=== PATIENT | female | born 1935 | race Native Hawaiian/Other Pacific Islander ===

== ENCOUNTER 2018-07-16 12:24 | Inpatient (IN) | payer MEDICARE, MEDICAID ==
[2018-07-16] MEDS ORDERED: (Novolin R) Insulin Human Regular 100 units/ml vial ONE (12:39)
[2018-07-16] MEDS ORDERED: (Novolin R) Insulin Human Regular 100 units/ml vial IVP ONE (12:40)
[2018-07-16] MEDS ORDERED: Calcium Gluconate 4.65 mEq/10 ml Inj ONE (12:46)
[2018-07-16 13:04] LABS: BASO # 0.1 K/uL (0.0-0.2); BASO % 0.4 % (0.0-2.0); EOS % 0.1 % (0.0-4.0); LYMPH # 1.7 K/uL (1.0-4.3); LYMPH % 11.2 % (20.0-40.0); MEAN CELL VOLUME 82.9 fL (81.0-99.0); MEAN CORPUSCULAR HEMOGLOBIN 26.5 pg (27.0-31.0); MEAN CORPUSCULAR HGB CONC 31.9 g/dL (33.0-37.0); MEAN PLATELET VOLUME 9.5 fL (7.2-11.7); MONO # 0.2 K/uL (0.0-0.8); NEUT # 12.8 K/uL (1.8-7.0); NEUT % 87.3 % (50.0-75.0); RBC 3.76 Mil/uL (3.80-5.20); RED CELL DISTRIBUTION WIDTH 13.7 % (11.5-14.5); WHITE BLOOD COUNT 14.7 K/uL (4.8-10.8)
--- NOTE | 2018-07-16 13:16 | RAD ---
Date of service: 07/16/2018 PROCEDURE: CHEST RADIOGRAPH, 1 VIEW HISTORY: Shortness of breath COMPARISON: None available. FINDINGS: LUNGS: There is severe pulmonary venous congestion. There is patchy airspace disease in both lower lobes, worse in the left lower lobe. PLEURA: No pneumothorax. Suspect small left pleural effusion. CARDIOVASCULAR: Mild cardiomegaly with prominent central vasculature. OSSEOUS STRUCTURES: No significant abnormalities. VISUALIZED UPPER ABDOMEN: Normal. OTHER FINDINGS: None. IMPRESSION: Findings are concerning for mild congestive heart failure. Patchy airspace disease in the lower lobes, worse in the left lower lobe could represent superimposed pneumonia. Follow-up is advised.
[2018-07-16 13:21] LABS: SQUAMOUS EPITHIAL < 1 /hpf (0-5); URINE BACTERIA RARE (<OCC); URINE BILIRUBIN NEGATIVE (NEGATIVE); URINE BLOOD 1+ (NEGATIVE); URINE CLARITY Hazy (Clear); URINE COLOR Yellow (YELLOW); URINE GLUCOSE (UA) 3+ mg/dL (Normal); URINE LEUKOCYTE ESTERASE NEG Leu/uL (Negative); URINE PROTEIN 3+ mg/dL (NEGATIVE); URINE UROBILINOGEN NORMAL mg/dL (0.2-1.0)
[2018-07-16 13:25] LABS: PROTHROMBIN TIME 11.3 SECONDS (9.7-12.2)
[2018-07-16] MEDS ORDERED: Piperacill/Tazo 3.375gm in Dex 3.375 GM/50 ML BAG IVPB STA (13:32)
[2018-07-16 13:36] LABS: B-TYPE NATRIURETIC PEPTIDE 6100 pg/mL (0-900)
[2018-07-16] MEDS ORDERED: Nitroglycerin 2% Ointment Foilpak UD TOP STA (13:39)
[2018-07-16] MEDS ORDERED: Vancomycin 1 GM 1 GM/250 ML BAG IV SCH (13:45)
[2018-07-16 13:48] LABS: ALB/GLOB RATIO 1.1 (1.0-2.1); ALBUMIN 3.8 g/dL (3.5-5.0); ALT/SGPT 47 U/L (9-52); AST/SGOT 43 U/L (14-36); BLOOD UREA NITROGEN 23 mg/dL (7-17); CALCIUM 10.5 mg/dl (8.6-10.4); GFR NON-AFRICAN AMERICAN > 60
--- NOTE | 2018-07-16 13:53 | C.PDOC ---
History Of Present Illness 82 y/o female presents to ED c/o shortness of breath and generalized weakness since this morning and chest pain since yesterday. Denies cough, fever, headache, dizziness, or any other associated symptoms at this time. Time Seen by Provider: 07/16/18 12:46 Chief Complaint (Nursing): Chest Pain History Per: Patient History/Exam Limitations: no limitations Past Medical History Reviewed: Historical Data, Nursing Documentation, Vital Signs Vital Signs: Last Vital Signs Temp Pulse 45 L 07/16/18 12:56 Resp 30 H 07/16/18 12:34 BP 126/66 07/16/18 12:34 Pulse Ox 97 07/16/18 12:34 - Medical History PMH: HTN Family History: States: Unknown Family Hx - Social History Hx Alcohol Use: No Hx Substance Use: No - Immunization History Hx Tetanus Toxoid Vaccination: No Hx Influenza Vaccination: No Hx Pneumococcal Vaccination: No Review Of Systems Except As Marked, All Systems Reviewed And Found Negative. Constitutional: Positive for: Weakness. Negative for: Fever, Chills Respiratory: Positive for: Shortness of Breath Physical Exam - Physical Exam Appears: Non-toxic, Other (severe respiratory distress) Skin: Normal Color, Warm, Dry Head: Atraumatic, Normacephalic Eye(s): bilateral: Normal Inspection Oral Mucosa: Moist Neck: Supple Chest: Symmetrical, No Tenderness Cardiovascular: JVD Respiratory: Decreased Breath Sounds (at bases), Rales, Rhonchi, Wheezing (scattered) Gastrointestinal/Abdominal: Soft, No Tenderness, Other (protuberant abdomen) Back: No CVA Tenderness Extremity: Normal ROM, Pedal Edema (1/4) Neurological/Psych: Oriented x3, Normal Speech ED Course And Treatment - Laboratory Results Result Diagrams: 07/22/18 06:30 07/22/18 06:30 ECG: Interpreted By Me, Viewed By Me ECG Rhythm: Sinus Rhythm Interpretation Of ECG: Third degree block Rate From EC (bpm) O2 Sat by Pulse Oximetry: 97 (RA) Pulse Ox Interpretation: Normal - Radiology CXR: Interpreted by Me, Viewed By Me CXR Interpretation: Yes: Other (CHF) Medical Decision Making Medical Decision Making: Pt was started on BIPAP. Calcium gluconate was given. Case discussed with hospitalist and ICU. Pt is accepted ICU. Disposition - Disposition Disposition: HOSPITALIZED Condition: GOOD - Scribe Statement The provider has reviewed the documentation as recorded by the Scribe KP All medical record entries made by the Tiffibe were at my direction and personally dictated by me. I have reviewed the chart and agree that the record accurately reflects my personal performance of the history, physical exam, medical decision making, and the department course for this patient. I have also personally directed, reviewed, and agree with the discharge instructions and disposition.
[2018-07-16] MEDS ORDERED: Calcium Gluconate 4.65 mEq/10 ml Inj IVP ONE (13:54)
--- NOTE | 2018-07-16 13:54 | CP.CCUPN ---
CCU Subjective - Physician Review Subjective (Free Text): Resident Critical Care Consult Note Patient is a 82 year old male with past medical history of HTN, T2DM, PMH: PSH: SHx: Allergies: FHx: PMD: 07/16/18 15:35 Critical Care Time Spent (in minutes): 35 CCU Objective - Vital Signs / Intake & Output Vital Signs (Last 4 hours): Vital Signs Temp Pulse Resp BP Pulse Ox 07/16/18 13:53 97 07/16/18 13:23 98.1 F 38 L 18 160/112 H 100 07/16/18 13:17 39 L 22 181/55 H 100 07/16/18 13:12 39 L 20 181/56 H 100 07/16/18 13:07 39 L 17 186/54 H 100 07/16/18 12:56 45 L 07/16/18 12:44 42 L 21 167/59 H 100 07/16/18 12:40 27 H 07/16/18 12:37 46 L 23 162/66 H 99 07/16/18 12:34 50 L 30 H 126/66 97 07/16/18 12:32 39 L 34 H 153/54 H 94 L Intake and Output (Last 8hrs): Intake & Output 07/15/18 07/16/18 07/16/18 22:59 06:59 14:59 Weight 116 lb - Medications Active Medications: Active Medications Generic Name Dose Route Start Last Admin Trade Name Freq PRN Reason Stop Dose Admin Piperacillin Sod/Tazobactam Sod 3.375 gm in 50 mls @ 100 mls/hr 07/16/18 13:32 Zosyn 3.375 Gm Iv Premix IVPB 07/16/18 14:01 STAT STA Protocol Vancomycin HCl 1 gm in 250 mls @ 166.667 mls/hr 07/16/18 13:45 Vancomycin 1gm In Normal Saline Addvantage IV STAT COOPER Protocol - Patient Studies Lab Studies: Lab Studies 07/16/18 07/16/18 07/16/18 Range/Units 12:59 12:58 12:58 WBC (4.8-10.8) K/uL RBC (3.80-5.20) Mil/uL Hgb (11.0-16.0) g/dL Hct (34.0-47.0) % MCV (81.0-99.0) fL MCH (27.0-31.0) pg MCHC (33.0-37.0) g/dL RDW (11.5-14.5) % Plt Count (130-400) K/uL MPV (7.2-11.7) fL Neut % (Auto) (50.0-75.0) % Lymph % (Auto) (20.0-40.0) % [place] % (Auto) (0.0-10.0) % Eos % (Auto) (0.0-4.0) % Baso % (Auto) (0.0-2.0) % Neut # (Auto) (1.8-7.0) K/uL Lymph # (Auto) (1.0-4.3) K/uL [place] # (Auto) (0.0-0.8) K/uL Eos # (Auto) (0.0-0.7) K/uL Baso # (Auto) (0.0-0.2) K/uL PT 11.3 (9.7-12.2) SECONDS INR 1.0 APTT 28 (21-34) SECONDS Sodium 130 L (132-148) mmol/L Potassium 5.3 H (3.6-5.2) mmol/L Chloride 101 (98-107) mmol/L Carbon Dioxide 12 L (22-30) mmol/L Anion Gap 22 H (10-20) BUN 23 H (7-17) mg/dL Creatinine 0.7 (0.7-1.2) mg/dL Est GFR ( Amer) > 60 Est GFR (Non-Af Amer) > 60 Random Glucose 467 H* (65-105) mg/dL Calcium 10.5 H (8.6-10.4) mg/dl Total Bilirubin 0.5 (0.2-1.3) mg/dL AST 43 H (14-36) U/L ALT 47 (9-52) U/L Alkaline Phosphatase 77 (38-126) U/L Troponin I 0.1080 (0.00-0.120) ng/mL NT-Pro-B Natriuret Pep 6100 H (0-900) pg/mL Total Protein 7.3 (6.3-8.3) g/dL Albumin 3.8 (3.5-5.0) g/dL Globulin 3.5 (2.2-3.9) gm/dL Albumin/Globulin Ratio 1.1 (1.0-2.1) Urine Color Yellow (YELLOW) Urine Clarity Hazy (Clear) Urine pH 5.0 (5.0-8.0) Ur Specific [place] 1.025 (1.003-1.030) Urine Protein 3+ H (NEGATIVE) mg/dL Urine Glucose (UA) 3+ H (Normal) mg/dL Urine Ketones Negative (NEGATIVE) mg/dL Urine Blood 1+ H (NEGATIVE) Urine Nitrate Negative (NEGATIVE) Urine Bilirubin Negative (NEGATIVE) Urine Urobilinogen Normal (0.2-1.0) mg/dL Ur Leukocyte Esterase Neg (Negative) Leroy/uL Urine WBC (Auto) 3 (0-5) /hpf Urine RBC (Auto) 9 H (0-3) /hpf Ur Squamous Epith Cells < 1 (0-5) /hpf Urine Bacteria Rare (<OCC) Hyaline Casts 3-5 H (0-2) /lpf 07/16/18 Range/Units 12:58 WBC 14.7 H (4.8-10.8) K/uL RBC 3.76 L (3.80-5.20) Mil/uL Hgb 10.0 L (11.0-16.0) g/dL Hct 31.2 L (34.0-47.0) % MCV 82.9 (81.0-99.0) fL MCH 26.5 L (27.0-31.0) pg MCHC 31.9 L (33.0-37.0) g/dL RDW 13.7 (11.5-14.5) % Plt Count 235 (130-400) K/uL MPV 9.5 (7.2-11.7) fL Neut % (Auto) 87.3 H (50.0-75.0) % Lymph % (Auto) 11.2 L (20.0-40.0) % [place] % (Auto) 1.0 (0.0-10.0) % Eos % (Auto) 0.1 (0.0-4.0) % Baso % (Auto) 0.4 (0.0-2.0) % Neut # (Auto) 12.8 H (1.8-7.0) K/uL Lymph # (Auto) 1.7 (1.0-4.3) K/uL [place] # (Auto) 0.2 (0.0-0.8) K/uL Eos # (Auto) 0.0 (0.0-0.7) K/uL Baso # (Auto) 0.1 (0.0-0.2) K/uL PT (9.7-12.2) SECONDS INR APTT (21-34) SECONDS Sodium (132-148) mmol/L Potassium (3.6-5.2) mmol/L Chloride (98-107) mmol/L Carbon Dioxide (22-30) mmol/L Anion Gap (10-20) BUN (7-17) mg/dL Creatinine (0.7-1.2) mg/dL Est GFR ( Amer) Est GFR (Non-Af Amer) Random Glucose (65-105) mg/dL Calcium (8.6-10.4) mg/dl Total Bilirubin (0.2-1.3) mg/dL AST (14-36) U/L ALT (9-52) U/L Alkaline Phosphatase (38-126) U/L Troponin I (0.00-0.120) ng/mL NT-Pro-B Natriuret Pep (0-900) pg/mL Total Protein (6.3-8.3) g/dL Albumin (3.5-5.0) g/dL Globulin (2.2-3.9) gm/dL Albumin/Globulin Ratio (1.0-2.1) Urine Color (YELLOW) Urine Clarity (Clear) Urine pH (5.0-8.0) Ur Specific [place] (1.003-1.030) Urine Protein (NEGATIVE) mg/dL Urine Glucose (UA) (Normal) mg/dL Urine Ketones (NEGATIVE) mg/dL Urine Blood (NEGATIVE) Urine Nitrate (NEGATIVE) Urine Bilirubin (NEGATIVE) Urine Urobilinogen (0.2-1.0) mg/dL Ur Leukocyte Esterase (Negative) [place]/uL Urine WBC (Auto) (0-5) /hpf Urine RBC (Auto) (0-3) /hpf Ur Squamous Epith Cells (0-5) /hpf Urine Bacteria (<OCC) Hyaline Casts (0-2) /lpf Laboratory Results - last 24 hr 10/05/18 10/05/18 10/05/18 12:58 12:58 12:58 WBC 14.7 H RBC 3.76 L Hgb 10.0 L Hct 31.2 L MCV 82.9 MCH 26.5 L MCHC 31.9 L RDW 13.7 Plt Count 235 MPV 9.5 Neut % (Auto) 87.3 H Lymph % (Auto) 11.2 L [place] % (Auto) 1.0 Eos % (Auto) 0.1 Baso % (Auto) 0.4 Neut # (Auto) 12.8 H Lymph # (Auto) 1.7 [place] # (Auto) 0.2 Eos # (Auto) 0.0 Baso # (Auto) 0.1 PT 11.3 INR 1.0 APTT 28 Sodium 130 L Potassium 5.3 H Chloride 101 Carbon Dioxide 12 L Anion Gap 22 H BUN 23 H Creatinine 0.7 Est GFR ( Amer) > 60 Est GFR (Non-Af Amer) > 60 Random Glucose 467 H* Calcium 10.5 H Total Bilirubin 0.5 AST 43 H ALT 47 Alkaline Phosphatase 77 Troponin I 0.1080 NT-Pro-B Natriuret Pep 6100 H Total Protein 7.3 Albumin 3.8 Globulin 3.5 Albumin/Globulin Ratio 1.1 Urine Color Urine Clarity Urine pH Ur Specific [place] Urine Protein Urine Glucose (UA) Urine Ketones Urine Blood Urine Nitrate Urine Bilirubin Urine Urobilinogen Ur Leukocyte Esterase Urine WBC (Auto) Urine RBC (Auto) Ur Squamous Epith Cells Urine Bacteria Hyaline Casts 07/16/18 12:59 WBC RBC Hgb Hct MCV MCH MCHC RDW Plt Count MPV Neut % (Auto) Lymph % (Auto) [place] % (Auto) Eos % (Auto) Baso % (Auto) Neut # (Auto) Lymph # (Auto) [place] # (Auto) Eos # (Auto) Baso # (Auto) PT INR APTT Sodium Potassium Chloride Carbon Dioxide Anion Gap BUN Creatinine Est GFR ( Amer) Est GFR (Non-Af Amer) Random Glucose Calcium Total Bilirubin AST ALT Alkaline Phosphatase Troponin I NT-Pro-B Natriuret Pep Total Protein Albumin Globulin Albumin/Globulin Ratio Urine Color Yellow Urine Clarity Hazy Urine pH 5.0 Ur Specific [place] 1.025 Urine Protein 3+ H Urine Glucose (UA) 3+ H Urine Ketones Negative Urine Blood 1+ H Urine Nitrate Negative Urine Bilirubin Negative Urine Urobilinogen Normal Ur Leukocyte Esterase Neg Urine WBC (Auto) 3 Urine RBC (Auto) 9 H Ur Squamous Epith Cells < 1 Urine Bacteria Rare Hyaline Casts 3-5 H EKG/Cardiology Studies: Cardiology / EKG Studies 07/16/18 12:47 ELECTROCARDIOGRAM Stat Comment: Mode Of Transportation: BED Reason For Exam: SOB Assessment/Plan - Assessment and Plan (Free Text) Assessment: Patient is a 82 year old male with past medical history of HTN, T2DM, found to have 3rd degree heart block. Plan: Neuro: - AAO x3 Pulm: - CXR shows - on BIPAP - maintain SPO2 > 92% - Duonebs 3 ml INH RQ6 CV: - In ED was given 1 mg Atropine, 4.65 meq calcium gluconate, 40 mg Lasix, Nitro- Bid, 10 units Novolin - currently hemodynamically stable - maintain MAP > 65 - EKG shows 3rd degree heart block - JOHN Q6H - Followup ECHO, thyroid function tests - Cardiology consulted. Appreciate recs. - EPS consulted. Appreciate recs. GI: - Pepcid 20mg PO daily - NPO diet Renal: - monitor I and O ID: - Vancomycin 2 gm IV given - Zosyn 3.375 gm IV given once - Followup blood cultures, urine cultures Heme/Onc - monitor H/H Endo: - maintain euglycemia - ISS high dose protocol - Accuchecks Q6H PPX: Pepcid 20 mg PO daily, Lovenox 30 mg SC daily Case and plan was reviewed and discussed with Dr. Sukhwinder Murphy PGY-1 - Date & Time Date: 07/16/18 Time: 13:53
[2018-07-16 14:09] LABS: VENOUS BLOOD GAS BASE EXCESS -14.8 mmol/L (0.0-2.0); VENOUS BLOOD GAS PCO2 32 mmHg (40-60); VENOUS BLOOD GAS PO2 28 mm/Hg (30-55); VENOUS BLOOD PH 7.19 (7.32-7.43)
[2018-07-16] MEDS ORDERED: Vancomycin 1 gm/NS 200 ml 1 GM/200 ML BAG IVPB ONE ×2 (15:00→16:00)
--- NOTE | 2018-07-16 15:37 | CP.PCM.CON ---
<Gee Murphy - Last Filed: 07/16/18 17:08> History of Present Illness - History of Present Illness History of Present Illness: Resident Critical Care Consult Note Patient is a 82 year old male with past medical history of HTN, T2DM, HLD, anemia presenting with chief complaint of chest pain that began yesterday morning. She describes the sensation as a burning discomfort that she thought was indigestion, and so she took an over the counter antacid which did help. Throughout the remainder of the day she remained asymptomatic, and then at night she started developing shortness of breath. Per son, she appeared to be in respiratory distress with accessory muscle use, which prompted her arrival to the ED. Currently she is asymptomatic. Denies fevers, chills, headache, dizziness, chest pain, shortness of breath, abdominal pain, diarrhea, constipation, dysuria. PMH: HTN, T2DM, HLD, anemia PSH: None SHx: Denies alcohol, tobacco, illicit drug use. Homemaker. Allergies: NKDA FHx: father (asthma), mother (none) PMD: Dr. Rick Fonseca Review of Systems - Review of Systems All systems: reviewed and no additional remarkable complaints except (as stated in HPI) Past Patient History - Past Social History Smoking Status: Never Smoked Occupation: Homemaker Alcohol: None Drugs: Denies Home Situation {Lives}: With Family - CARDIAC Hx Hypertension: Yes - ENDOCRINE/METABOLIC Hx Diabetes Mellitus Type 2: Yes - GASTROINTESTINAL Hx Gastroesophageal Reflux: Yes - PSYCHIATRIC Hx Substance Use: No Meds Allergies/Adverse Reactions: Allergies Allergy/AdvReac Type Severity Reaction Status Date / Time No Known Allergies Allergy Verified 07/16/18 15:22 - Medications Medications: Current Medications Vancomycin/Sodium Chloride (Vancomycin 1 Gm/Ns 200 Ml) 1 gm in 200 mls @ 133.333 mls/hr IVPB ONCE ONE; Protocol Stop: 07/16/18 16:29 Last Admin: 07/16/18 15:32 Dose: 133.333 mls/hr Insulin Human Regular (Novolin R) 0 unit SC Q4H [facility]; Protocol Last Admin: 07/16/18 15:33 Dose: 6 u Physical Exam - Constitutional Appears: No Acute Distress - Head Exam Head Exam: ATRAUMATIC, NORMOCEPHALIC - Eye Exam Eye Exam: EOMI, Normal appearance, PERRL - ENT Exam ENT Exam: Normal External Ear Exam - Neck Exam Neck exam: Positive for: Full Rom. Negative for: Lymphadenopathy, Tenderness, Thyromegaly - Respiratory Exam Respiratory Exam: Decreased Breath Sounds, Rhonchi, NORMAL BREATHING PATTERN. absent: Accessory Muscle Use, Respiratory Distress - Cardiovascular Exam Cardiovascular Exam: Bradycardia, REGULAR RHYTHM, +S1, +S2 - GI/Abdominal Exam GI & Abdominal Exam: Normal Bowel Sounds, Soft. absent: Rebound, Rigid, Tenderness - Extremities Exam Extremities exam: Positive for: normal inspection, pedal edema, pedal pulses present - Neurological Exam Neurological exam: Alert, CN II-XII Intact, Oriented x3 - Psychiatric Exam Psychiatric exam: Anxious, Normal Affect - Skin Skin Exam: Dry, Intact, Normal Color Results - Vital Signs Recent Vital Signs: Last Vital Signs Temp 98.1 F 07/16/18 13:23 Pulse 38 L 07/16/18 13:23 Resp 18 07/16/18 13:23 BP 160/112 H 07/16/18 13:23 Pulse Ox 97 07/16/18 13:53 - Labs Result Diagrams: 07/16/18 12:58 07/16/18 12:58 Labs: Laboratory Results - last 24 hr 07/16/18 07/16/18 07/16/18 12:58 12:58 12:58 WBC 14.7 H RBC 3.76 L Hgb 10.0 L Hct 31.2 L MCV 82.9 MCH 26.5 L MCHC 31.9 L RDW 13.7 Plt Count 235 MPV 9.5 Neut % (Auto) 87.3 H Lymph % (Auto) 11.2 L Navarro % (Auto) 1.0 Eos % (Auto) 0.1 Baso % (Auto) 0.4 Neut # (Auto) 12.8 H Lymph # (Auto) 1.7 Navarro # (Auto) 0.2 Eos # (Auto) 0.0 Baso # (Auto) 0.1 PT 11.3 INR 1.0 APTT 28 pO2 VBG pH VBG pCO2 VBG HCO3 VBG Total CO2 VBG O2 Sat (Calc) VBG Base Excess VBG Potassium Glucose Lactate Crit Value Called To Crit Value Called By Crit Value Read Back Blood Gas Notified Time Sodium 130 L Potassium 5.3 H Chloride 101 Carbon Dioxide 12 L Anion Gap 22 H BUN 23 H Creatinine 0.7 Est GFR ( Amer) > 60 Est GFR (Non-Af Amer) > 60 POC Glucose (mg/dL) Random Glucose 467 H* Calcium 10.5 H Phosphorus 4.9 H Magnesium 2.3 Total Bilirubin 0.5 AST 43 H ALT 47 Alkaline Phosphatase 77 Troponin I 0.1080 NT-Pro-B Natriuret Pep 6100 H Total Protein 7.3 Albumin 3.8 Globulin 3.5 Albumin/Globulin Ratio 1.1 Venous Blood Potassium Urine Color Urine Clarity Urine pH Ur Specific [place] Urine Protein Urine Glucose (UA) Urine Ketones Urine Blood Urine Nitrate Urine Bilirubin Urine Urobilinogen Ur Leukocyte Esterase Urine WBC (Auto) Urine RBC (Auto) Ur Squamous Epith Cells Urine Bacteria Hyaline Casts 07/16/18 07/16/18 07/16/18 12:59 13:53 14:04 WBC RBC Hgb Hct MCV MCH MCHC RDW Plt Count MPV Neut % (Auto) Lymph % (Auto) Navarro % (Auto) Eos % (Auto) Baso % (Auto) Neut # (Auto) Lymph # (Auto) [place] # (Auto) Eos # (Auto) Baso # (Auto) PT INR APTT pO2 28 L VBG pH 7.19 L* VBG pCO2 32 L VBG HCO3 11.7 VBG Total CO2 13.2 L VBG O2 Sat (Calc) 46.6 VBG Base Excess -14.8 L VBG Potassium 3.1 L Glucose 266 H Lactate 3.0 H Crit Value Called To Dr shelton Crit Value Called By Sekou tariq supervisor instrument maintenance Crit Value Read Back Y Blood Gas Notified Time 1408 Sodium 137.0 Potassium Chloride 115.0 H Carbon Dioxide Anion Gap BUN Creatinine Est GFR ( Amer) Est GFR (Non-Af Amer) POC Glucose (mg/dL) 379 H Random Glucose Calcium Phosphorus Magnesium Total Bilirubin AST ALT Alkaline Phosphatase Troponin I NT-Pro-B Natriuret Pep Total Protein Albumin Globulin Albumin/Globulin Ratio Venous Blood Potassium 3.1 L Urine Color Yellow Urine Clarity Hazy Urine pH 5.0 Ur Specific [place] 1.025 Urine Protein 3+ H Urine Glucose (UA) 3+ H Urine Ketones Negative Urine Blood 1+ H Urine Nitrate Negative Urine Bilirubin Negative Urine Urobilinogen Normal Ur Leukocyte Esterase Neg Urine WBC (Auto) 3 Urine RBC (Auto) 9 H Ur Squamous Epith Cells < 1 Urine Bacteria Rare Hyaline Casts 3-5 H Assessment & Plan - Assessment and Plan (Free Text) Plan: Patient is a 82 year old male with past medical history of HTN, T2DM, HLD, anemia presenting with chief complaint of chest pain and shortness of breath and was found to have 3rd degree heart block. Neuro: - AAO x3 - maintain normothermia Pulm: - CXR shows patchy airspace disease in lower lobes, worse in LLL. Possible CHF, pneumonia. - on BIPAP - maintain SPO2 > 92% CV: - In ED was given 1 mg Atropine, 4.65 meq calcium gluconate, 40 mg Lasix, Nitro- Bid, 10 units Novolin - maintain MAP > 65 - BNP 6100 - EKG shows 3rd degree heart block - JOHN Q6H - continue home amlodipine 10 mg PO daily, rosuvastatin 5 mg PO HS - Followup ECHO, thyroid function tests - Cardiology consulted. Appreciate recs. - EPS consulted. Appreciate recs. GI: - NPO diet Renal: - UA 3+ protein, 3+ glucose, 1+ blood - monitor I and O ID: - afebrile, WBC 14.7 - Vancomycin 2 gm IV given - Zosyn 3.375 gm IV given once - followup blood cultures, urine cultures Heme/Onc - monitor H/H - continue home Ferrex Endo: - maintain euglycemia - ISS high dose protocol - Accuchecks Q6H PPX: GI prophylaxis not indicated at this time, Lovenox 40 mg SC daily Case and plan was reviewed and discussed with Dr. Sukhwinder Murphy PGY-1 - Date & Time Date: 07/16/18 Time: 15:37 <Alberto Pretty - Last Filed: 07/16/18 17:40> Meds - Medications Medications: Current Medications Amlodipine Besylate (Norvasc) 10 mg PO DAILY [facility] Enoxaparin Sodium (Lovenox) 40 mg SC DAILY [facility] Insulin Human Regular (Novolin R) 0 unit SC Q4H [facility]; Protocol Last Admin: 07/16/18 15:33 Dose: 6 u Multivitamins/Minerals (Therapeutic-M Tab) 1 tab PO DAILY [facility] Pneumococcal Polyvalent Vaccine (Pneumovax 23 Vaccine) 0.5 ml IM .ONCE ONE Stop: 07/18/18 10:01 Rosuvastatin Calcium (Crestor) 5 mg PO HS [facility] Results - Vital Signs Recent Vital Signs: Last Vital Signs Temp 96.4 F L 07/16/18 16:00 Pulse 81 07/16/18 17:07 Resp 19 07/16/18 17:07 BP 177/51 H 07/16/18 17:07 Pulse Ox 100 07/16/18 17:07 - Labs Result Diagrams: 07/16/18 12:58 07/16/18 12:58 Labs: Laboratory Results - last 24 hr 07/16/18 07/16/18 07/16/18 12:34 12:58 12:58 WBC 14.7 H RBC 3.76 L Hgb 10.0 L Hct 31.2 L MCV 82.9 MCH 26.5 L MCHC 31.9 L RDW 13.7 Plt Count 235 MPV 9.5 Neut % (Auto) 87.3 H Lymph % (Auto) 11.2 L [place]arro % (Auto) 1.0 Eos % (Auto) 0.1 Baso % (Auto) 0.4 Neut # (Auto) 12.8 H Lymph # (Auto) 1.7 [place] # (Auto) 0.2 Eos # (Auto) 0.0 Baso # (Auto) 0.1 PT INR APTT pO2 VBG pH VBG pCO2 VBG HCO3 VBG Total CO2 VBG O2 Sat (Calc) VBG Base Excess VBG Potassium Glucose Lactate Crit Value Called To Crit Value Called By Crit Value Read Back Blood Gas Notified Time Sodium 130 L Potassium 5.3 H Chloride 101 Carbon Dioxide 12 L Anion Gap 22 H BUN 23 H Creatinine 0.7 Est GFR ( Amer) > 60 Est GFR (Non-Af Amer) > 60 POC Glucose (mg/dL) 484 H* Random Glucose 467 H* Calcium 10.5 H Phosphorus 4.9 H Magnesium 2.3 Total Bilirubin 0.5 AST 43 H ALT 47 Alkaline Phosphatase 77 Total Creatine Kinase CK-MB (Mass) Troponin I 0.1080 NT-Pro-B Natriuret Pep 6100 H Total Protein 7.3 Albumin 3.8 Globulin 3.5 Albumin/Globulin Ratio 1.1 Free T4 TSH 3rd Generation Venous Blood Potassium Urine Color Urine Clarity Urine pH Ur Specific [place] Urine Protein Urine Glucose (UA) Urine Ketones Urine Blood Urine Nitrate Urine Bilirubin Urine Urobilinogen Ur Leukocyte Esterase Urine WBC (Auto) Urine RBC (Auto) Ur Squamous Epith Cells Urine Bacteria Hyaline Casts 07/16/18 07/16/18 07/16/18 12:58 12:59 13:53 WBC RBC Hgb Hct MCV MCH MCHC RDW Plt Count MPV Neut % (Auto) Lymph % (Auto) [place] % (Auto) Eos % (Auto) Baso % (Auto) Neut # (Auto) Lymph # (Auto) [place] # (Auto) Eos # (Auto) Baso # (Auto) PT 11.3 INR 1.0 APTT 28 pO2 VBG pH VBG pCO2 VBG HCO3 VBG Total CO2 VBG O2 Sat (Calc) VBG Base Excess VBG Potassium Glucose Lactate Crit Value Called To Crit Value Called By Crit Value Read Back Blood Gas Notified Time Sodium Potassium Chloride Carbon Dioxide Anion Gap BUN Creatinine Est GFR ( Amer) Est GFR (Non-Af Amer) POC Glucose (mg/dL) 379 H Random Glucose Calcium Phosphorus Magnesium Total Bilirubin AST ALT Alkaline Phosphatase Total Creatine Kinase CK-MB (Mass) Troponin I NT-Pro-B Natriuret Pep Total Protein Albumin Globulin Albumin/Globulin Ratio Free T4 TSH 3rd Generation Venous Blood Potassium Urine Color Yellow Urine Clarity Hazy Urine pH 5.0 Ur Specific [place] 1.025 Urine Protein 3+ H Urine Glucose (UA) 3+ H Urine Ketones Negative Urine Blood 1+ H Urine Nitrate Negative Urine Bilirubin Negative Urine Urobilinogen Normal Ur Leukocyte Esterase Neg Urine WBC (Auto) 3 Urine RBC (Auto) 9 H Ur Squamous Epith Cells < 1 Urine Bacteria Rare Hyaline Casts 3-5 H 07/16/18 07/16/18 07/16/18 14:04 15:09 15:09 WBC RBC Hgb Hct MCV MCH MCHC RDW Plt Count MPV Neut % (Auto) Lymph % (Auto) [place] % (Auto) Eos % (Auto) Baso % (Auto) Neut # (Auto) Lymph # (Auto) [place] # (Auto) Eos # (Auto) Baso # (Auto) PT INR APTT pO2 28 L VBG pH 7.19 L* VBG pCO2 32 L VBG HCO3 11.7 VBG Total CO2 13.2 L VBG O2 Sat (Calc) 46.6 VBG Base Excess -14.8 L VBG Potassium 3.1 L Glucose 266 H Lactate 3.0 H Crit Value Called To Dr shelton Crit Value Called By Sekou tariq supervisor instrument maintenance Crit Value Read Back Y Blood Gas Notified Time 1408 Sodium 137.0 Potassium Chloride 115.0 H Carbon Dioxide Anion Gap BUN Creatinine Est GFR ( Amer) Est GFR (Non-Af Amer) POC Glucose (mg/dL) Random Glucose Calcium Phosphorus Magnesium Total Bilirubin AST ALT Alkaline Phosphatase Total Creatine Kinase 101 CK-MB (Mass) 4.61 H Troponin I 0.1280 H* NT-Pro-B Natriuret Pep Total Protein Albumin Globulin Albumin/Globulin Ratio Free T4 1.25 TSH 3rd Generation 3.41 3.44 Venous Blood Potassium 3.1 L Urine Color Urine Clarity Urine pH Ur Specific [place] Urine Protein Urine Glucose (UA) Urine Ketones Urine Blood Urine Nitrate Urine Bilirubin Urine Urobilinogen Ur Leukocyte Esterase Urine WBC (Auto) Urine RBC (Auto) Ur Squamous Epith Cells Urine Bacteria Hyaline Casts 07/16/18 15:33 WBC RBC Hgb Hct MCV MCH MCHC RDW Plt Count MPV Neut % (Auto) Lymph % (Auto) [place] % (Auto) Eos % (Auto) Baso % (Auto) Neut # (Auto) Lymph # (Auto) [place] # (Auto) Eos # (Auto) Baso # (Auto) PT INR APTT pO2 VBG pH VBG pCO2 VBG HCO3 VBG Total CO2 VBG O2 Sat (Calc) VBG Base Excess VBG Potassium Glucose Lactate Crit Value Called To Crit Value Called By Crit Value Read Back Blood Gas Notified Time Sodium Potassium Chloride Carbon Dioxide Anion Gap BUN Creatinine Est GFR ( Amer) Est GFR (Non-Af Amer) POC Glucose (mg/dL) 287 H Random Glucose Calcium Phosphorus Magnesium Total Bilirubin AST ALT Alkaline Phosphatase Total Creatine Kinase CK-MB (Mass) Troponin I NT-Pro-B Natriuret Pep Total Protein Albumin Globulin Albumin/Globulin Ratio Free T4 TSH 3rd Generation Venous Blood Potassium Urine Color Urine Clarity Urine pH Ur Specific [place] Urine Protein Urine Glucose (UA) Urine Ketones Urine Blood Urine Nitrate Urine Bilirubin Urine Urobilinogen Ur Leukocyte Esterase Urine WBC (Auto) Urine RBC (Auto) Ur Squamous Epith Cells Urine Bacteria Hyaline Casts Attending/Attestation - Attestation I have personally seen and examined this patient.: Yes I have fully participated in the care of the patient.: Yes I have reviewed all pertinent clinical information: Yes Notes (Text): 07/16/18 17:40 I have seen and examined the patient. Medical records, lab studies, and imaging were reviewed by me and a management plan was formulated on multidisciplinary rounds with resident Dr. Flynn. I agree with their documented assessment and plan. Patient is in acute exacerbation of chronic heart failure, type unknown. Will diurese, started on BIPAP. Obtaining echo. Patient also in 3rd degree heart block, check thyroid function. Troponins negative. EPS - Dr. Oliver consulted, and Cardiology - Dr. Lincoln consulted. Critical Care Time 35 minutes. Multi-disciplinary rounds were performed with house staff, nursing, speech therapy, respiratory therapy, pharmacy and nutrition with integrated input from the primary team/attending and other consulting services. The documented time is cumulative and includes review of patient data/exams/labs/chart review and examination of the patient on rounds and throughout the day; time is exclusive of any procedures or teaching time.
[2018-07-16] MEDS ORDERED: (Novolin R) Insulin Human Regular 100 units/ml vial SC SCH ×2 (16:00→16:30)
[2018-07-16 16:17] LABS: FREE T4 1.25 ng/dL (0.78-2.19)
--- NOTE | 2018-07-16 16:24 | CP.PCM.HP ---
Addendum entered and electronically signed by Jose Luis Fish DO 07/16/18 19:00: Pt going to director of cardiac cath lab tonight as per Cardio recs Original Note: <Jose Luis Fish - Last Filed: 07/16/18 16:25> History of Present Illness - History of Present Illness History of Present Illness: CCU Hospitalist Admission HPI Patient is a 82 year old male with past medical history of HTN, T2DM, HLD presenting with chief complaint of chest pain that began yesterday morning. She describes the sensation as a burning discomfort that she thought was indigestion, and so she took an over the counter antacid which did help. Throughout the remainder of the day she remained asymptomatic, and then at night she started developing shortness of breath. Currently she is asymptomatic. Denies fevers, chills, headache, dizziness, chest pain, shortness of breath, abdominal pain, diarrhea, constipation, dysuria. PMH: HTN, T2DM, HLD PSH: None SHx: Denies alcohol, tobacco, illicit drug use. Homemaker. Allergies: NKDA FHx: PMD: Dr. Rick Fonseca Present on Admission - Present on Admission Any Indicators Present on Admission: No Review of Systems - Review of Systems Systems not reviewed;Unavailable: Language Barrier Past Patient History - Past Social History Smoking Status: Never Smoked Occupation: Homemaker Alcohol: None Drugs: Denies Home Situation {Lives}: With Family - CARDIAC Hx Hypertension: Yes - ENDOCRINE/METABOLIC Hx Diabetes Mellitus Type 2: Yes - MUSCULOSKELETAL/RHEUMATOLOGICAL Hx Falls: No - GASTROINTESTINAL Hx Gastroesophageal Reflux: Yes - PSYCHIATRIC Hx Substance Use: No Meds Allergies/Adverse Reactions: Allergies Allergy/AdvReac Type Severity Reaction Status Date / Time No Known Allergies Allergy Verified 07/16/18 15:22 Physical Exam - Constitutional Appears: In Acute Distress - Head Exam Head Exam: ATRAUMATIC, NORMAL INSPECTION - Eye Exam Eye Exam: EOMI - ENT Exam ENT Exam: Mucous Membranes Moist - Additional Findings Additional findings: Appears: Non-toxic, Other (severe respiratory distress) Skin: Normal Color, Warm, Dry Head: Atraumatic, Normacephalic Eye(s): bilateral: Normal Inspection Oral Mucosa: Moist Neck: Supple Chest: Symmetrical, No Tenderness Cardiovascular: JVD Respiratory: Decreased Breath Sounds (at bases), Rales, Rhonchi, Wheezing (scattered) Gastrointestinal/Abdominal: Soft, No Tenderness, Other (protuberant abdomen) Back: No CVA Tenderness Extremity: Normal ROM, Pedal Edema (1/4) Neurological/Psych: Oriented x3, Normal Speech Results - Vital Signs Recent Vital Signs: Last Vital Signs Temp 96.6 F L 07/16/18 14:45 Pulse 58 L 07/16/18 15:24 Resp 22 07/16/18 15:24 BP 139/80 07/16/18 15:24 Pulse Ox 97 07/16/18 16:16 - Labs Result Diagrams: 07/16/18 12:58 07/16/18 12:58 Labs: Laboratory Results - last 24 hr 07/16/18 07/16/18 07/16/18 12:34 12:58 12:58 WBC 14.7 H RBC 3.76 L Hgb 10.0 L Hct 31.2 L MCV 82.9 MCH 26.5 L MCHC 31.9 L RDW 13.7 Plt Count 235 MPV 9.5 Neut % (Auto) 87.3 H Lymph % (Auto) 11.2 L [place] % (Auto) 1.0 Eos % (Auto) 0.1 Baso % (Auto) 0.4 Neut # (Auto) 12.8 H Lymph # (Auto) 1.7 [place] # (Auto) 0.2 Eos # (Auto) 0.0 Baso # (Auto) 0.1 PT INR APTT pO2 VBG pH VBG pCO2 VBG HCO3 VBG Total CO2 VBG O2 Sat (Calc) VBG Base Excess VBG Potassium Glucose Lactate Crit Value Called To Crit Value Called By Crit Value Read Back Blood Gas Notified Time Sodium 130 L Potassium 5.3 H Chloride 101 Carbon Dioxide 12 L Anion Gap 22 H BUN 23 H Creatinine 0.7 Est GFR ( Amer) > 60 Est GFR (Non-Af Amer) > 60 POC Glucose (mg/dL) 484 H* Random Glucose 467 H* Calcium 10.5 H Phosphorus 4.9 H Magnesium 2.3 Total Bilirubin 0.5 AST 43 H ALT 47 Alkaline Phosphatase 77 Total Creatine Kinase Troponin I 0.1080 NT-Pro-B Natriuret Pep 6100 H Total Protein 7.3 Albumin 3.8 Globulin 3.5 Albumin/Globulin Ratio 1.1 Free T4 Venous Blood Potassium Urine Color Urine Clarity Urine pH Ur Specific Reva Urine Protein Urine Glucose (UA) Urine Ketones Urine Blood Urine Nitrate Urine Bilirubin Urine Urobilinogen Ur Leukocyte Esterase Urine WBC (Auto) Urine RBC (Auto) Ur Squamous Epith Cells Urine Bacteria Hyaline Casts 07/16/18 07/16/18 07/16/18 12:58 12:59 13:53 WBC RBC Hgb Hct MCV MCH MCHC RDW Plt Count MPV Neut % (Auto) Lymph % (Auto) [place] % (Auto) Eos % (Auto) Baso % (Auto) Neut # (Auto) Lymph # (Auto) [place] # (Auto) Eos # (Auto) Baso # (Auto) PT 11.3 INR 1.0 APTT 28 pO2 VBG pH VBG pCO2 VBG HCO3 VBG Total CO2 VBG O2 Sat (Calc) VBG Base Excess VBG Potassium Glucose Lactate Crit Value Called To Crit Value Called By Crit Value Read Back Blood Gas Notified Time Sodium Potassium Chloride Carbon Dioxide Anion Gap BUN Creatinine Est GFR ( Amer) Est GFR (Non-Af Amer) POC Glucose (mg/dL) 379 H Random Glucose Calcium Phosphorus Magnesium Total Bilirubin AST ALT Alkaline Phosphatase Total Creatine Kinase Troponin I NT-Pro-B Natriuret Pep Total Protein Albumin Globulin Albumin/Globulin Ratio Free T4 Venous Blood Potassium Urine Color Yellow Urine Clarity Hazy Urine pH 5.0 Ur Specific Reva 1.025 Urine Protein 3+ H Urine Glucose (UA) 3+ H Urine Ketones Negative Urine Blood 1+ H Urine Nitrate Negative Urine Bilirubin Negative Urine Urobilinogen Normal Ur Leukocyte Esterase Neg Urine WBC (Auto) 3 Urine RBC (Auto) 9 H Ur Squamous Epith Cells < 1 Urine Bacteria Rare Hyaline Casts 3-5 H 07/16/18 07/16/18 07/16/18 14:04 15:09 15:09 WBC RBC Hgb Hct MCV MCH MCHC RDW Plt Count MPV Neut % (Auto) Lymph % (Auto) [place] % (Auto) Eos % (Auto) Baso % (Auto) Neut # (Auto) Lymph # (Auto) [place] # (Auto) Eos # (Auto) Baso # (Auto) PT INR APTT pO2 28 L VBG pH 7.19 L* VBG pCO2 32 L VBG HCO3 11.7 VBG Total CO2 13.2 L VBG O2 Sat (Calc) 46.6 VBG Base Excess -14.8 L VBG Potassium 3.1 L Glucose 266 H Lactate 3.0 H Crit Value Called To Dr shelton Crit Value Called By Sekou tariq wastewater operator Crit Value Read Back Y Blood Gas Notified Time 1408 Sodium 137.0 Potassium Chloride 115.0 H Carbon Dioxide Anion Gap BUN Creatinine Est GFR ( Amer) Est GFR (Non-Af Amer) POC Glucose (mg/dL) Random Glucose Calcium Phosphorus Magnesium Total Bilirubin AST ALT Alkaline Phosphatase Total Creatine Kinase 101 Troponin I NT-Pro-B Natriuret Pep Total Protein Albumin Globulin Albumin/Globulin Ratio Free T4 1.25 Venous Blood Potassium 3.1 L Urine Color Urine Clarity Urine pH Ur Specific Reva Urine Protein Urine Glucose (UA) Urine Ketones Urine Blood Urine Nitrate Urine Bilirubin Urine Urobilinogen Ur Leukocyte Esterase Urine WBC (Auto) Urine RBC (Auto) Ur Squamous Epith Cells Urine Bacteria Hyaline Casts 07/16/18 15:33 WBC RBC Hgb Hct MCV MCH MCHC RDW Plt Count MPV Neut % (Auto) Lymph % (Auto) [place] % (Auto) Eos % (Auto) Baso % (Auto) Neut # (Auto) Lymph # (Auto) [place] # (Auto) Eos # (Auto) Baso # (Auto) PT INR APTT pO2 VBG pH VBG pCO2 VBG HCO3 VBG Total CO2 VBG O2 Sat (Calc) VBG Base Excess VBG Potassium Glucose Lactate Crit Value Called To Crit Value Called By Crit Value Read Back Blood Gas Notified Time Sodium Potassium Chloride Carbon Dioxide Anion Gap BUN Creatinine Est GFR ( Amer) Est GFR (Non-Af Amer) POC Glucose (mg/dL) 287 H Random Glucose Calcium Phosphorus Magnesium Total Bilirubin AST ALT Alkaline Phosphatase Total Creatine Kinase Troponin I NT-Pro-B Natriuret Pep Total Protein Albumin Globulin Albumin/Globulin Ratio Free T4 Venous Blood Potassium Urine Color Urine Clarity Urine pH Ur Specific Reva Urine Protein Urine Glucose (UA) Urine Ketones Urine Blood Urine Nitrate Urine Bilirubin Urine Urobilinogen Ur Leukocyte Esterase Urine WBC (Auto) Urine RBC (Auto) Ur Squamous Epith Cells Urine Bacteria Hyaline Casts Assessment & Plan - Assessment and Plan (Free Text) Assessment: Patient is a 82 year old male with past medical history of HTN, T2DM, HLD found to have 3rd degree heart block. Peding EP (Dr Oliver) and Cardio (Dr Lincoln) recs Neuro: - AAO x3 Pulm: - CXR shows patchy airspace disease in lower lobes, worse in LLL. Possible CHF, pneumonia. - on BIPAP - maintain SPO2 > 92% - Duonebs 3 ml INH RQ6 CV: - In ED was given 1 mg Atropine, 4.65 meq calcium gluconate, 40 mg Lasix, Nitro- Bid, 10 units Novolin - currently hemodynamically stable - maintain MAP > 65 - BNP 6100 - EKG shows 3rd degree heart block - JOHN Q6H - Followup ECHO, thyroid function tests - Cardiology consulted. Appreciate recs. - EPS consulted. Appreciate recs. GI: - Pepcid 20mg PO daily - NPO diet Renal: - monitor I and O ID: - Vancomycin 2 gm IV given - Zosyn 3.375 gm IV given once - Followup blood cultures, urine cultures Heme/Onc - monitor H/H -given calcium gluconate in ED Endo: - maintain euglycemia - ISS high dose protocol - Accuchecks Q6H PPX: Pepcid 20 mg PO daily, Lovenox 30 mg SC daily <Alberto Pretty - Last Filed: 07/16/18 17:38> Results - Vital Signs Recent Vital Signs: Last Vital Signs Temp 96.4 F L 07/16/18 16:00 Pulse 81 07/16/18 17:07 Resp 19 07/16/18 17:07 BP 177/51 H 07/16/18 17:07 Pulse Ox 100 07/16/18 17:07 - Labs Result Diagrams: 07/16/18 12:58 07/16/18 12:58 Labs: Laboratory Results - last 24 hr 07/16/18 07/16/18 07/16/18 12:34 12:58 12:58 WBC 14.7 H RBC 3.76 L Hgb 10.0 L Hct 31.2 L MCV 82.9 MCH 26.5 L MCHC 31.9 L RDW 13.7 Plt Count 235 MPV 9.5 Neut % (Auto) 87.3 H Lymph % (Auto) 11.2 L [place] % (Auto) 1.0 Eos % (Auto) 0.1 Baso % (Auto) 0.4 Neut # (Auto) 12.8 H Lymph # (Auto) 1.7 [place] # (Auto) 0.2 Eos # (Auto) 0.0 Baso # (Auto) 0.1 PT INR APTT pO2 VBG pH VBG pCO2 VBG HCO3 VBG Total CO2 VBG O2 Sat (Calc) VBG Base Excess VBG Potassium Glucose Lactate Crit Value Called To Crit Value Called By Crit Value Read Back Blood Gas Notified Time Sodium 130 L Potassium 5.3 H Chloride 101 Carbon Dioxide 12 L Anion Gap 22 H BUN 23 H Creatinine 0.7 Est GFR ( Amer) > 60 Est GFR (Non-Af Amer) > 60 POC Glucose (mg/dL) 484 H* Random Glucose 467 H* Calcium 10.5 H Phosphorus 4.9 H Magnesium 2.3 Total Bilirubin 0.5 AST 43 H ALT 47 Alkaline Phosphatase 77 Total Creatine Kinase CK-MB (Mass) Troponin I 0.1080 NT-Pro-B Natriuret Pep 6100 H Total Protein 7.3 Albumin 3.8 Globulin 3.5 Albumin/Globulin Ratio 1.1 Free T4 TSH 3rd Generation Venous Blood Potassium Urine Color Urine Clarity Urine pH Ur Specific Reva Urine Protein Urine Glucose (UA) Urine Ketones Urine Blood Urine Nitrate Urine Bilirubin Urine Urobilinogen Ur Leukocyte Esterase Urine WBC (Auto) Urine RBC (Auto) Ur Squamous Epith Cells Urine Bacteria Hyaline Casts 07/16/18 07/16/18 07/16/18 12:58 12:59 13:53 WBC RBC Hgb Hct MCV MCH MCHC RDW Plt Count MPV Neut % (Auto) Lymph % (Auto) [place] % (Auto) Eos % (Auto) Baso % (Auto) Neut # (Auto) Lymph # (Auto) [place] # (Auto) Eos # (Auto) Baso # (Auto) PT 11.3 INR 1.0 APTT 28 pO2 VBG pH VBG pCO2 VBG HCO3 VBG Total CO2 VBG O2 Sat (Calc) VBG Base Excess VBG Potassium Glucose Lactate Crit Value Called To Crit Value Called By Crit Value Read Back Blood Gas Notified Time Sodium Potassium Chloride Carbon Dioxide Anion Gap BUN Creatinine Est GFR ( Amer) Est GFR (Non-Af Amer) POC Glucose (mg/dL) 379 H Random Glucose Calcium Phosphorus Magnesium Total Bilirubin AST ALT Alkaline Phosphatase Total Creatine Kinase CK-MB (Mass) Troponin I NT-Pro-B Natriuret Pep Total Protein Albumin Globulin Albumin/Globulin Ratio Free T4 TSH 3rd Generation Venous Blood Potassium Urine Color Yellow Urine Clarity Hazy Urine pH 5.0 Ur Specific Reva 1.025 Urine Protein 3+ H Urine Glucose (UA) 3+ H Urine Ketones Negative Urine Blood 1+ H Urine Nitrate Negative Urine Bilirubin Negative Urine Urobilinogen Normal Ur Leukocyte Esterase Neg Urine WBC (Auto) 3 Urine RBC (Auto) 9 H Ur Squamous Epith Cells < 1 Urine Bacteria Rare Hyaline Casts 3-5 H 07/16/18 07/16/18 07/16/18 14:04 15:09 15:09 WBC RBC Hgb Hct MCV MCH MCHC RDW Plt Count MPV Neut % (Auto) Lymph % (Auto) [place] % (Auto) Eos % (Auto) Baso % (Auto) Neut # (Auto) Lymph # (Auto) [place] # (Auto) Eos # (Auto) Baso # (Auto) PT INR APTT pO2 28 L VBG pH 7.19 L* VBG pCO2 32 L VBG HCO3 11.7 VBG Total CO2 13.2 L VBG O2 Sat (Calc) 46.6 VBG Base Excess -14.8 L VBG Potassium 3.1 L Glucose 266 H Lactate 3.0 H Crit Value Called To Dr shelton Crit Value Called By Sekou tariq wastewater operator Crit Value Read Back Y Blood Gas Notified Time 1408 Sodium 137.0 Potassium Chloride 115.0 H Carbon Dioxide Anion Gap BUN Creatinine Est GFR ( Amer) Est GFR (Non-Af Amer) POC Glucose (mg/dL) Random Glucose Calcium Phosphorus Magnesium Total Bilirubin AST ALT Alkaline Phosphatase Total Creatine Kinase 101 CK-MB (Mass) 4.61 H Troponin I 0.1280 H* NT-Pro-B Natriuret Pep Total Protein Albumin Globulin Albumin/Globulin Ratio Free T4 1.25 TSH 3rd Generation 3.41 3.44 Venous Blood Potassium 3.1 L Urine Color Urine Clarity Urine pH Ur Specific Reva Urine Protein Urine Glucose (UA) Urine Ketones Urine Blood Urine Nitrate Urine Bilirubin Urine Urobilinogen Ur Leukocyte Esterase Urine WBC (Auto) Urine RBC (Auto) Ur Squamous Epith Cells Urine Bacteria Hyaline Casts 07/16/18 15:33 WBC RBC Hgb Hct MCV MCH MCHC RDW Plt Count MPV Neut % (Auto) Lymph % (Auto) [place] % (Auto) Eos % (Auto) Baso % (Auto) Neut # (Auto) Lymph # (Auto) [place] # (Auto) Eos # (Auto) Baso # (Auto) PT INR APTT pO2 VBG pH VBG pCO2 VBG HCO3 VBG Total CO2 VBG O2 Sat (Calc) VBG Base Excess VBG Potassium Glucose Lactate Crit Value Called To Crit Value Called By Crit Value Read Back Blood Gas Notified Time Sodium Potassium Chloride Carbon Dioxide Anion Gap BUN Creatinine Est GFR ( Amer) Est GFR (Non-Af Amer) POC Glucose (mg/dL) 287 H Random Glucose Calcium Phosphorus Magnesium Total Bilirubin AST ALT Alkaline Phosphatase Total Creatine Kinase CK-MB (Mass) Troponin I NT-Pro-B Natriuret Pep Total Protein Albumin Globulin Albumin/Globulin Ratio Free T4 TSH 3rd Generation Venous Blood Potassium Urine Color Urine Clarity Urine pH Ur Specific Reva Urine Protein Urine Glucose (UA) Urine Ketones Urine Blood Urine Nitrate Urine Bilirubin Urine Urobilinogen Ur Leukocyte Esterase Urine WBC (Auto) Urine RBC (Auto) Ur Squamous Epith Cells Urine Bacteria Hyaline Casts Attending/Attestation - Attestation I have personally seen and examined this patient.: Yes I have fully participated in the care of the patient.: Yes I have reviewed all pertinent clinical information: Yes <Naldo Rivera - Last Filed: 07/16/18 19:36> Results - Vital Signs Recent Vital Signs: Last Vital Signs Temp 96.4 F L 07/16/18 16:00 Pulse 43 L 07/16/18 19:00 Resp 23 07/16/18 19:00 BP 161/56 H 07/16/18 18:25 Pulse Ox 100 07/16/18 19:00 - Labs Result Diagrams: 07/16/18 12:58 07/16/18 12:58 Labs: Laboratory Results - last 24 hr 07/16/18 07/16/18 07/16/18 12:34 12:58 12:58 WBC 14.7 H RBC 3.76 L Hgb 10.0 L Hct 31.2 L MCV 82.9 MCH 26.5 L MCHC 31.9 L RDW 13.7 Plt Count 235 MPV 9.5 Neut % (Auto) 87.3 H Lymph % (Auto) 11.2 L [place] % (Auto) 1.0 Eos % (Auto) 0.1 Baso % (Auto) 0.4 Neut # (Auto) 12.8 H Lymph # (Auto) 1.7 [place] # (Auto) 0.2 Eos # (Auto) 0.0 Baso # (Auto) 0.1 PT INR APTT pO2 VBG pH VBG pCO2 VBG HCO3 VBG Total CO2 VBG O2 Sat (Calc) VBG Base Excess VBG Potassium Glucose Lactate Crit Value Called To Crit Value Called By Crit Value Read Back Blood Gas Notified Time Sodium 130 L Potassium 5.3 H Chloride 101 Carbon Dioxide 12 L Anion Gap 22 H BUN 23 H Creatinine 0.7 Est GFR ( Amer) > 60 Est GFR (Non-Af Amer) > 60 POC Glucose (mg/dL) 484 H* Random Glucose 467 H* Lactic Acid Calcium 10.5 H Phosphorus 4.9 H Magnesium 2.3 Total Bilirubin 0.5 AST 43 H ALT 47 Alkaline Phosphatase 77 Total Creatine Kinase CK-MB (Mass) Troponin I 0.1080 NT-Pro-B Natriuret Pep 6100 H Total Protein 7.3 Albumin 3.8 Globulin 3.5 Albumin/Globulin Ratio 1.1 Free T4 TSH 3rd Generation Venous Blood Potassium Urine Color Urine Clarity Urine pH Ur Specific Reva Urine Protein Urine Glucose (UA) Urine Ketones Urine Blood Urine Nitrate Urine Bilirubin Urine Urobilinogen Ur Leukocyte Esterase Urine WBC (Auto) Urine RBC (Auto) Ur Squamous Epith Cells Urine Bacteria Hyaline Casts 07/16/18 07/16/18 07/16/18 12:58 12:59 13:53 WBC RBC Hgb Hct MCV MCH MCHC RDW Plt Count MPV Neut % (Auto) Lymph % (Auto) [place] % (Auto) Eos % (Auto) Baso % (Auto) Neut # (Auto) Lymph # (Auto) [place] # (Auto) Eos # (Auto) Baso # (Auto) PT 11.3 INR 1.0 APTT 28 pO2 VBG pH VBG pCO2 VBG HCO3 VBG Total CO2 VBG O2 Sat (Calc) VBG Base Excess VBG Potassium Glucose Lactate Crit Value Called To Crit Value Called By Crit Value Read Back Blood Gas Notified Time Sodium Potassium Chloride Carbon Dioxide Anion Gap BUN Creatinine Est GFR ( Amer) Est GFR (Non-Af Amer) POC Glucose (mg/dL) 379 H Random Glucose Lactic Acid Calcium Phosphorus Magnesium Total Bilirubin AST ALT Alkaline Phosphatase Total Creatine Kinase CK-MB (Mass) Troponin I NT-Pro-B Natriuret Pep Total Protein Albumin Globulin Albumin/Globulin Ratio Free T4 TSH 3rd Generation Venous Blood Potassium Urine Color Yellow Urine Clarity Hazy Urine pH 5.0 Ur Specific Reva 1.025 Urine Protein 3+ H Urine Glucose (UA) 3+ H Urine Ketones Negative Urine Blood 1+ H Urine Nitrate Negative Urine Bilirubin Negative Urine Urobilinogen Normal Ur Leukocyte Esterase Neg Urine WBC (Auto) 3 Urine RBC (Auto) 9 H Ur Squamous Epith Cells < 1 Urine Bacteria Rare Hyaline Casts 3-5 H 07/16/18 07/16/18 07/16/18 14:04 15:09 15:09 WBC RBC Hgb Hct MCV MCH MCHC RDW Plt Count MPV Neut % (Auto) Lymph % (Auto) [place] % (Auto) Eos % (Auto) Baso % (Auto) Neut # (Auto) Lymph # (Auto) [place] # (Auto) Eos # (Auto) Baso # (Auto) PT INR APTT pO2 28 L VBG pH 7.19 L* VBG pCO2 32 L VBG HCO3 11.7 VBG Total CO2 13.2 L VBG O2 Sat (Calc) 46.6 VBG Base Excess -14.8 L VBG Potassium 3.1 L Glucose 266 H Lactate 3.0 H Crit Value Called To Dr shelton Crit Value Called By Sekou tariq wastewater operator Crit Value Read Back Y Blood Gas Notified Time 1408 Sodium 137.0 Potassium Chloride 115.0 H Carbon Dioxide Anion Gap BUN Creatinine Est GFR ( Amer) Est GFR (Non-Af Amer) POC Glucose (mg/dL) Random Glucose Lactic Acid Calcium Phosphorus Magnesium Total Bilirubin AST ALT Alkaline Phosphatase Total Creatine Kinase 101 CK-MB (Mass) 4.61 H Troponin I 0.1280 H* NT-Pro-B Natriuret Pep Total Protein Albumin Globulin Albumin/Globulin Ratio Free T4 1.25 TSH 3rd Generation 3.41 3.44 Venous Blood Potassium 3.1 L Urine Color Urine Clarity Urine pH Ur Specific Reva Urine Protein Urine Glucose (UA) Urine Ketones Urine Blood Urine Nitrate Urine Bilirubin Urine Urobilinogen Ur Leukocyte Esterase Urine WBC (Auto) Urine RBC (Auto) Ur Squamous Epith Cells Urine Bacteria Hyaline Casts 07/16/18 07/16/18 15:33 17:09 WBC RBC Hgb Hct MCV MCH MCHC RDW Plt Count MPV Neut % (Auto) Lymph % (Auto) [place] % (Auto) Eos % (Auto) Baso % (Auto) Neut # (Auto) Lymph # (Auto) [place] # (Auto) Eos # (Auto) Baso # (Auto) PT INR APTT pO2 VBG pH VBG pCO2 VBG HCO3 VBG Total CO2 VBG O2 Sat (Calc) VBG Base Excess VBG Potassium Glucose Lactate Crit Value Called To Crit Value Called By Crit Value Read Back Blood Gas Notified Time Sodium Potassium Chloride Carbon Dioxide Anion Gap BUN Creatinine Est GFR ( Amer) Est GFR (Non-Af Amer) POC Glucose (mg/dL) 287 H Random Glucose Lactic Acid 2.9 H Calcium Phosphorus Magnesium Total Bilirubin AST ALT Alkaline Phosphatase Total Creatine Kinase CK-MB (Mass) Troponin I NT-Pro-B Natriuret Pep Total Protein Albumin Globulin Albumin/Globulin Ratio Free T4 TSH 3rd Generation Venous Blood Potassium Urine Color Urine Clarity Urine pH Ur Specific Reva Urine Protein Urine Glucose (UA) Urine Ketones Urine Blood Urine Nitrate Urine Bilirubin Urine Urobilinogen Ur Leukocyte Esterase Urine WBC (Auto) Urine RBC (Auto) Ur Squamous Epith Cells Urine Bacteria Hyaline Casts Attending/Attestation - Attestation I have personally seen and examined this patient.: Yes I have fully participated in the care of the patient.: Yes I have reviewed all pertinent clinical information: Yes Notes (Text): New LBBB/New Heart block plan cath Management per ICU/Cards
[2018-07-16 16:35] LABS: CK-MB 4.61 ng/mL (0.0-3.38); TROPONIN I 0.128 ng/mL (0.00-0.120)
--- NOTE | 2018-07-16 18:06 | CP.PCM.CON ---
History of Present Illness - History of Present Illness History of Present Illness: Cardiology/EP note Chart imaging reviewed This patient presented with chest pain generalized weakness effort intolerance and was noted to be in a complete heart block No history of syncope palpitations Past medical history significant for systemic hypertension diabetes mellitus hyperlipidemia and anemia; there is no surgical history Medications were reviewed; there were no allergies No history of smoking alcohol or drug abuse Exam Afebrile No distress pulse 50 regular Normal venous pressures No goiter Clear lungs No S3 No edema EKG Sinus tachycardia LBBB Complete AV block Escape rhythm at 40 beats per minute Echocardiogram: normal LV systolic function and regional wall motion Ms. Manjarrez has a chest pain syndrome and a complete AV block Given the multiple vascular risk factors and LBBB concealing electroca rdiographic tell tale evidence of active coronary disease and plausible ischemic conduction disease would consider cardiac catheterization (please consult dr. corley) and thyroid function If block persists would consider a permanent pacemaker implant In the interim would avoid AV julius stressors/electrolytes/medications Sinus tachycardia warrants exploring possible etiologies include pulmonary embol ism; of note QTc is mildly prolonged Past Patient History - Past Medical History & Family History Past Medical History?: Yes - Past Social History Smoking Status: Never Smoked Occupation: Homemaker Alcohol: None Drugs: Denies Home Situation {Lives}: With Family - CARDIAC Hx Hypertension: Yes - PULMONARY Hx Respiratory Disorders: No - ENDOCRINE/METABOLIC Hx Diabetes Mellitus Type 2: Yes - MUSCULOSKELETAL/RHEUMATOLOGICAL Hx Falls: No - GASTROINTESTINAL Hx Gastroesophageal Reflux: Yes - PSYCHIATRIC Hx Substance Use: No - ANESTHESIA Hx Anesthesia: No Hx Malignant Hyperthermia: No Has any member of the family had a problem w/ anesthesia?: No Meds Allergies/Adverse Reactions: Allergies Allergy/AdvReac Type Severity Reaction Status Date / Time No Known Allergies Allergy Verified 07/16/18 15:22 - Medications Medications: Current Medications Amlodipine Besylate (Norvasc) 10 mg PO DAILY [facility] Enoxaparin Sodium (Lovenox) 40 mg SC DAILY [facility] Insulin Human Regular (Novolin R) 0 unit SC Q4H [facility]; Protocol Last Admin: 07/16/18 15:33 Dose: 6 u Multivitamins/Minerals (Therapeutic-M Tab) 1 tab PO DAILY [facility] Pneumococcal Polyvalent Vaccine (Pneumovax 23 Vaccine) 0.5 ml IM .ONCE ONE Stop: 07/18/18 10:01 Rosuvastatin Calcium (Crestor) 5 mg PO HS [facility] Results - Vital Signs Recent Vital Signs: Last Vital Signs Temp 96.4 F L 07/16/18 16:00 Pulse 81 07/16/18 17:07 Resp 19 07/16/18 17:07 BP 177/51 H 07/16/18 17:07 Pulse Ox 100 07/16/18 17:07 - Labs Result Diagrams: 07/20/18 05:48 07/20/18 05:49 Labs: Laboratory Results - last 24 hr 07/16/18 07/16/18 07/16/18 12:34 12:58 12:58 WBC 14.7 H RBC 3.76 L Hgb 10.0 L Hct 31.2 L MCV 82.9 MCH 26.5 L MCHC 31.9 L RDW 13.7 Plt Count 235 MPV 9.5 Neut % (Auto) 87.3 H Lymph % (Auto) 11.2 L [place] % (Auto) 1.0 Eos % (Auto) 0.1 Baso % (Auto) 0.4 Neut # (Auto) 12.8 H Lymph # (Auto) 1.7 [place] # (Auto) 0.2 Eos # (Auto) 0.0 Baso # (Auto) 0.1 PT INR APTT pO2 VBG pH VBG pCO2 VBG HCO3 VBG Total CO2 VBG O2 Sat (Calc) VBG Base Excess VBG Potassium Glucose Lactate Crit Value Called To Crit Value Called By Crit Value Read Back Blood Gas Notified Time Sodium 130 L Potassium 5.3 H Chloride 101 Carbon Dioxide 12 L Anion Gap 22 H BUN 23 H Creatinine 0.7 Est GFR ( Amer) > 60 Est GFR (Non-Af Amer) > 60 POC Glucose (mg/dL) 484 H* Random Glucose 467 H* Lactic Acid Calcium 10.5 H Phosphorus 4.9 H Magnesium 2.3 Total Bilirubin 0.5 AST 43 H ALT 47 Alkaline Phosphatase 77 Total Creatine Kinase CK-MB (Mass) Troponin I 0.1080 NT-Pro-B Natriuret Pep 6100 H Total Protein 7.3 Albumin 3.8 Globulin 3.5 Albumin/Globulin Ratio 1.1 Free T4 TSH 3rd Generation Venous Blood Potassium Urine Color Urine Clarity Urine pH Ur Specific [place] Urine Protein Urine Glucose (UA) Urine Ketones Urine Blood Urine Nitrate Urine Bilirubin Urine Urobilinogen Ur Leukocyte Esterase Urine WBC (Auto) Urine RBC (Auto) Ur Squamous Epith Cells Urine Bacteria Hyaline Casts 07/16/18 07/16/18 07/16/18 12:58 12:59 13:53 WBC RBC Hgb Hct MCV MCH MCHC RDW Plt Count MPV Neut % (Auto) Lymph % (Auto) [place] % (Auto) Eos % (Auto) Baso % (Auto) Neut # (Auto) Lymph # (Auto) [place] # (Auto) Eos # (Auto) Baso # (Auto) PT 11.3 INR 1.0 APTT 28 pO2 VBG pH VBG pCO2 VBG HCO3 VBG Total CO2 VBG O2 Sat (Calc) VBG Base Excess VBG Potassium Glucose Lactate Crit Value Called To Crit Value Called By Crit Value Read Back Blood Gas Notified Time Sodium Potassium Chloride Carbon Dioxide Anion Gap BUN Creatinine Est GFR ( Amer) Est GFR (Non-Af Amer) POC Glucose (mg/dL) 379 H Random Glucose Lactic Acid Calcium Phosphorus Magnesium Total Bilirubin AST ALT Alkaline Phosphatase Total Creatine Kinase CK-MB (Mass) Troponin I NT-Pro-B Natriuret Pep Total Protein Albumin Globulin Albumin/Globulin Ratio Free T4 TSH 3rd Generation Venous Blood Potassium Urine Color Yellow Urine Clarity Hazy Urine pH 5.0 Ur Specific [place] 1.025 Urine Protein 3+ H Urine Glucose (UA) 3+ H Urine Ketones Negative Urine Blood 1+ H Urine Nitrate Negative Urine Bilirubin Negative Urine Urobilinogen Normal Ur Leukocyte Esterase Neg Urine WBC (Auto) 3 Urine RBC (Auto) 9 H Ur Squamous Epith Cells < 1 Urine Bacteria Rare Hyaline Casts 3-5 H 07/16/18 07/16/18 07/16/18 14:04 15:09 15:09 WBC RBC Hgb Hct MCV MCH MCHC RDW Plt Count MPV Neut % (Auto) Lymph % (Auto) [place] % (Auto) Eos % (Auto) Baso % (Auto) Neut # (Auto) Lymph # (Auto) [place] # (Auto) Eos # (Auto) Baso # (Auto) PT INR APTT pO2 28 L VBG pH 7.19 L* VBG pCO2 32 L VBG HCO3 11.7 VBG Total CO2 13.2 L VBG O2 Sat (Calc) 46.6 VBG Base Excess -14.8 L VBG Potassium 3.1 L Glucose 266 H Lactate 3.0 H Crit Value Called To Dr shelton Crit Value Called By Sekou tariq cable splicer apprentice Crit Value Read Back Y Blood Gas Notified Time 1408 Sodium 137.0 Potassium Chloride 115.0 H Carbon Dioxide Anion Gap BUN Creatinine Est GFR ( Amer) Est GFR (Non-Af Amer) POC Glucose (mg/dL) Random Glucose Lactic Acid Calcium Phosphorus Magnesium Total Bilirubin AST ALT Alkaline Phosphatase Total Creatine Kinase 101 CK-MB (Mass) 4.61 H Troponin I 0.1280 H* NT-Pro-B Natriuret Pep Total Protein Albumin Globulin Albumin/Globulin Ratio Free T4 1.25 TSH 3rd Generation 3.41 3.44 Venous Blood Potassium 3.1 L Urine Color Urine Clarity Urine pH Ur Specific [place] Urine Protein Urine Glucose (UA) Urine Ketones Urine Blood Urine Nitrate Urine Bilirubin Urine Urobilinogen Ur Leukocyte Esterase Urine WBC (Auto) Urine RBC (Auto) Ur Squamous Epith Cells Urine Bacteria Hyaline Casts 07/16/18 07/16/18 15:33 17:09 WBC RBC Hgb Hct MCV MCH MCHC RDW Plt Count MPV Neut % (Auto) Lymph % (Auto) [place] % (Auto) Eos % (Auto) Baso % (Auto) Neut # (Auto) Lymph # (Auto) [place] # (Auto) Eos # (Auto) Baso # (Auto) PT INR APTT pO2 VBG pH VBG pCO2 VBG HCO3 VBG Total CO2 VBG O2 Sat (Calc) VBG Base Excess VBG Potassium Glucose Lactate Crit Value Called To Crit Value Called By Crit Value Read Back Blood Gas Notified Time Sodium Potassium Chloride Carbon Dioxide Anion Gap BUN Creatinine Est GFR ( Amer) Est GFR (Non-Af Amer) POC Glucose (mg/dL) 287 H Random Glucose Lactic Acid 2.9 H Calcium Phosphorus Magnesium Total Bilirubin AST ALT Alkaline Phosphatase Total Creatine Kinase CK-MB (Mass) Troponin I NT-Pro-B Natriuret Pep Total Protein Albumin Globulin Albumin/Globulin Ratio Free T4 TSH 3rd Generation Venous Blood Potassium Urine Color Urine Clarity Urine pH Ur Specific [place] Urine Protein Urine Glucose (UA) Urine Ketones Urine Blood Urine Nitrate Urine Bilirubin Urine Urobilinogen Ur Leukocyte Esterase Urine WBC (Auto) Urine RBC (Auto) Ur Squamous Epith Cells Urine Bacteria Hyaline Casts
[2018-07-16] MEDS: (Novolog) Insulin Aspart, Recombinant 100 u/ml 10 ml vial SC SCH (20:00)
[2018-07-16] MEDS ORDERED: Iodixanol 320 MG/ML 200 ML BOTTLE IV ONE (20:41)
[2018-07-16] MEDS ORDERED: Midazolam 2 MG/2 ML VIAL ONE (21:26)
[2018-07-16] MEDS ORDERED: Aspirin 325 mg EC Tablets PO STA (22:26)
--- NOTE | 2018-07-16 22:38 | CP.PCM.PN ---
Subjective - Date & Time of Evaluation Date of Evaluation: 07/16/18 Time of Evaluation: 22:35 - Subjective Subjective: Patient s/p LHC/TVP/Peripheral angiogram L Main: Distal 20% 2. LAD: Distal diffuse 20% narrowing 3. L Cx: Proximal 40% 4. RCA: Mid 95% 5. EF 80% Severe Left Iliac and SFA disease TVP placed uneventfully A/P Non ST elevation ME RCA severe disease Severe PAD Hyperglycemia Complete Heart block RCA PCI Thursday PPM eval by Dr. Oliver Objective - Vital Signs/Intake and Output Vital Signs (last 24 hours): Temp Pulse Resp BP Pulse Ox 96.4 F L 43 L 19 160/60 H 100 07/16/18 16:00 07/16/18 19:24 07/16/18 19:24 07/16/18 19:24 07/16/18 19:24 Intake and Output: 07/16/18 07/17/18 18:59 06:59 Intake Total 200 0 Output Total 650 150 Balance -450 -150 - Medications Medications: Current Medications Amlodipine Besylate (Norvasc) 10 mg PO DAILY [facility] Aspirin (Ecotrin) 81 mg PO DAILY [facility] Clopidogrel Bisulfate (Plavix) 75 mg PO DAILY [facility] Enoxaparin Sodium (Lovenox) 60 mg SC Q12 [facility] Famotidine (Pepcid) 20 mg PO BID [facility] Insulin Aspart (Novolog) 0 unit SC Q4 [facility]; Protocol Multivitamins/Minerals (Therapeutic-M Tab) 1 tab PO DAILY [facility] Pneumococcal Polyvalent Vaccine (Pneumovax 23 Vaccine) 0.5 ml IM .ONCE ONE Stop: 07/18/18 10:01 Rosuvastatin Calcium (Crestor) 5 mg PO HS [facility] - Labs Labs: 07/16/18 12:58 07/16/18 12:58 PT 11.3 SECONDS (9.7-12.2) 07/16/18 12:58 INR 1.0 07/16/18 12:58 APTT 28 SECONDS (21-34) 07/16/18 12:58
[2018-07-16] MEDS ORDERED: Sodium Chloride 0.45% 1,000 ML IV SCH (22:45)
[2018-07-16 22:56] LABS: VENOUS BLOOD GAS BASE EXCESS -1.9 mmol/L (0.0-2.0); VENOUS BLOOD GAS PCO2 35 mmHg (40-60); VENOUS BLOOD GAS PO2 37 mm/Hg (30-55); VENOUS BLOOD PH 7.41 (7.32-7.43)
[2018-07-17 01:13] LABS: ALB/GLOB RATIO 1.1 (1.0-2.1); ALBUMIN 4.2 g/dL (3.5-5.0); ALT/SGPT 44 U/L (9-52); AST/SGOT 40 U/L (14-36); BLOOD UREA NITROGEN 20 mg/dL (7-17); CALCIUM 9.4 mg/dl (8.6-10.4); CK-MB 5.35 ng/mL (0.0-3.38); GFR NON-AFRICAN AMERICAN > 60
[2018-07-17] MEDS: Nitroglycerin 50mg in D5W 50 MG/250 ML BOTTLE IV SCH (01:14)
[2018-07-17] MEDS: (Novolog) Insulin Aspart, Recombinant 100 u/ml 10 ml vial SC SCH ×6 (04:40→22:01)
[2018-07-17 06:40] LABS: BASO # 0.1 K/uL (0.0-0.2); BASO % 0.6 % (0.0-2.0); EOS # 0.1 K/uL (0.0-0.7); EOS % 0.6 % (0.0-4.0); HEMOGLOBIN 9.3 g/dL (11.0-16.0); LYMPH # 1.5 K/uL (1.0-4.3); LYMPH % 12.8 % (20.0-40.0); MEAN CELL VOLUME 79.9 fL (81.0-99.0); MEAN CORPUSCULAR HEMOGLOBIN 26.8 pg (27.0-31.0); MEAN CORPUSCULAR HGB CONC 33.6 g/dL (33.0-37.0); MEAN PLATELET VOLUME 9.3 fL (7.2-11.7); MONO # 1.1 K/uL (0.0-0.8); MONO % 9.4 % (0.0-10.0); NEUT # 9.1 K/uL (1.8-7.0); NEUT % 76.6 % (50.0-75.0); RBC 3.45 Mil/uL (3.80-5.20); RED CELL DISTRIBUTION WIDTH 13.4 % (11.5-14.5); WHITE BLOOD COUNT 11.9 K/uL (4.8-10.8)
[2018-07-17 07:16] LABS: ALBUMIN 3.6 g/dL (3.5-5.0); ALT/SGPT 39 U/L (9-52); AST/SGOT 30 U/L (14-36); BLOOD UREA NITROGEN 17 mg/dL (7-17); CALCIUM 8.9 mg/dl (8.6-10.4); CK-MB 3.49 ng/mL (0.0-3.38); GFR NON-AFRICAN AMERICAN > 60
[2018-07-17] MEDS: Magnesium Sulfate 1 gm in D5W 1 GM/100 ML BAG IVPB SCH ×2 (08:57→10:00)
[2018-07-17] MEDS: Enoxaparin 60 mg Syringe SC SCH ×2 (09:16→22:01)
[2018-07-17] MEDS: Multivitamin With Minerals Tab PO SCH (09:16)
[2018-07-17] MEDS ORDERED: Enoxaparin 40 mg Syringe SC SCH (10:00)
--- NOTE | 2018-07-17 16:05 | CP.CCUPN ---
CCU Subjective - Physician Review Events Since Last Encounter (Free Text): 07/17/18 16:00 alert and oriented, feels much better today. CCU Objective - Vital Signs / Intake & Output Vital Signs (Last 4 hours): Vital Signs Pulse Resp BP Pulse Ox 07/17/18 15:50 81 21 137/47 L 97 07/17/18 15:00 79 17 98 07/17/18 14:50 74 25 H 145/47 L 99 07/17/18 14:00 74 18 99 07/17/18 13:50 79 19 106/57 L 99 07/17/18 13:00 108 H 23 99 07/17/18 12:50 107 H 17 108/60 99 Intake and Output (Last 8hrs): Intake & Output 07/17/18 07/17/18 07/17/18 06:59 14:59 22:59 Intake Total 187.5 713.5 100 Output Total 1750 460 Balance -1562.5 253.5 100 Weight 111 lb 3.2 oz Intake: IV 9 Intake, IV Amount 7.5 4.5 Right IJ Cordis 7.5 4.5 Right Proximal Port 0 Femoral Oral 180 700 100 Output: Urine 1750 460 Urethral (Lewis) 1750 460 Urine, Voided 0 Emesis 0 0 Other: # Bowel Movements 0 0 0 - Physical Exam Head: Positive for: Atraumatic, Normocephalic Pupils: Positive for: PERRL Extroacular Muscles: Positive for: EOMI Conjunctiva: Positive for: Normal Mouth: Positive for: Moist Mucous Membranes Respiratory/Chest: Positive for: Clear to Auscultation, Good Air Exchange Cardiovascular: Positive for: Regular Rate and Rhythm Abdomen: Positive for: Normal Bowel Sounds. Negative for: Tenderness, Distention Upper Extremity: Positive for: Normal Inspection Lower Extremity: Positive for: Normal Inspection Neurological: Positive for: GCS=15, Speech Normal Psychiatric: Positive for: Alert, Oriented x 3 - Medications Active Medications: Active Medications Generic Name Dose Route Start Last Admin Trade Name Freq PRN Reason Stop Dose Admin Amlodipine Besylate 10 mg 07/17/18 10:00 07/17/18 09:16 Norvasc PO 10 mg DAILY [facility] Administration Aspirin 81 mg 07/17/18 10:00 07/17/18 09:16 Ecotrin PO 81 mg DAILY [facility] Administration Clopidogrel Bisulfate 75 mg 07/17/18 10:00 10/06/18 09:15 Plavix PO 75 mg DAILY [facility] Administration Enoxaparin Sodium 60 mg 07/17/18 10:00 07/17/18 09:16 Lovenox SC 60 mg Q12 [facility] Administration Famotidine 20 mg 07/16/18 22:30 07/17/18 09:16 Pepcid PO 20 mg BID [facility] Administration Hydralazine HCl 10 mg 07/17/18 00:38 Apresoline IVP Q6H PRN Systolic Blood Pressure Nitroglycerin/Dextrose 50 mg in 250 mls @ 1.5 mls/hr 07/17/18 00:45 07/17/18 10:00 Nitroglycerin 50 Mg/250 Ml D5w IV 0 mcg/min .Q24H [facility] 0 mls/hr Titration Protocol 5 MCG/MIN Insulin Aspart 0 unit 07/16/18 20:00 07/17/18 12:50 Novolog SC 4 unit Q4 [facility] Administration Protocol Multivitamins/Minerals 1 tab 07/17/18 10:00 07/17/18 09:16 Therapeutic-M Tab PO 1 tab DAILY [facility] Administration Pneumococcal Polyvalent Vaccine 0.5 ml 07/18/18 10:00 Pneumovax 23 Vaccine IM 07/18/18 10:01 .ONCE ONE Rosuvastatin Calcium 5 mg 07/16/18 22:00 07/16/18 23:21 Crestor PO 5 mg HS [facility] Administration - Patient Studies Lab Studies: Lab Studies 07/17/18 07/17/18 07/17/18 Range/Units 11:58 06:34 06:34 WBC 11.9 H (4.8-10.8) K/uL RBC 3.45 L (3.80-5.20) Mil/uL Hgb 9.3 L (11.0-16.0) g/dL Hct 27.6 L (34.0-47.0) % MCV 79.9 L D (81.0-99.0) fL MCH 26.8 L (27.0-31.0) pg MCHC 33.6 (33.0-37.0) g/dL RDW 13.4 (11.5-14.5) % Plt Count 204 (130-400) K/uL MPV 9.3 (7.2-11.7) fL Neut % (Auto) 76.6 H (50.0-75.0) % Lymph % (Auto) 12.8 L (20.0-40.0) % Pratt % (Auto) 9.4 (0.0-10.0) % Eos % (Auto) 0.6 (0.0-4.0) % Baso % (Auto) 0.6 (0.0-2.0) % Neut # (Auto) 9.1 H (1.8-7.0) K/uL Lymph # (Auto) 1.5 (1.0-4.3) K/uL Pratt # (Auto) 1.1 H (0.0-0.8) K/uL Eos # (Auto) 0.1 (0.0-0.7) K/uL Baso # (Auto) 0.1 (0.0-0.2) K/uL pO2 (30-55) mm/Hg VBG pH (7.32-7.43) VBG pCO2 (40-60) mmHg VBG HCO3 mmol/L VBG Total CO2 (22-28) mmol/L VBG O2 Sat (Calc) (40-65) % VBG Base Excess (0.0-2.0) mmol/L VBG Potassium (3.6-5.2) mmol/L Sodium 134 (132-148) mmol/l Chloride 100 (98-107) mmol/L Glucose (65-105) mg/dl Lactate (0.7-2.1) mmol/L Potassium 3.5 L (3.6-5.2) mmol/L Carbon Dioxide 24 (22-30) mmol/L Anion Gap 14 (10-20) BUN 17 (7-17) mg/dL Creatinine 0.7 (0.7-1.2) mg/dL Est GFR ( Amer) > 60 Est GFR (Non-Af Amer) > 60 POC Glucose (mg/dL) 322 H (65-110) mg/dL Random Glucose 177 H (65-105) mg/dL Lactic Acid (0.7-2.1) mmol/L Calcium 8.9 (8.6-10.4) mg/dl Phosphorus 3.4 (2.5-4.5) mg/dL Magnesium 1.4 L (1.6-2.3) mg/dL Total Bilirubin 0.7 (0.2-1.3) mg/dL AST 30 (14-36) U/L ALT 39 (9-52) U/L Alkaline Phosphatase 77 (38-126) U/L Total Creatine Kinase (30-135) U/L CK-MB (Mass) 3.49 H (0.0-3.38) ng/mL Troponin I 0.3360 H* (0.00-0.120) ng/mL Total Protein 7.1 (6.3-8.3) g/dL Albumin 3.6 (3.5-5.0) g/dL Globulin 3.5 (2.2-3.9) gm/dL Albumin/Globulin Ratio 1.0 (1.0-2.1) Free T4 (0.78-2.19) ng/dL TSH 3rd Generation (0.46-4.68) mIU/L Venous Blood Potassium (3.6-5.2) mmol/L B-Hydroxybutyrate (0.02-0.27) mM 07/17/18 07/17/18 07/16/18 Range/Units 05:19 00:40 23:33 WBC (4.8-10.8) K/uL RBC (3.80-5.20) Mil/uL Hgb (11.0-16.0) g/dL Hct (34.0-47.0) % MCV (81.0-99.0) fL MCH (27.0-31.0) pg MCHC (33.0-37.0) g/dL RDW (11.5-14.5) % Plt Count (130-400) K/uL MPV (7.2-11.7) fL Neut % (Auto) (50.0-75.0) % Lymph % (Auto) (20.0-40.0) % Pratt % (Auto) (0.0-10.0) % Eos % (Auto) (0.0-4.0) % Baso % (Auto) (0.0-2.0) % Neut # (Auto) (1.8-7.0) K/uL Lymph # (Auto) (1.0-4.3) K/uL Pratt # (Auto) (0.0-0.8) K/uL Eos # (Auto) (0.0-0.7) K/uL Baso # (Auto) (0.0-0.2) K/uL pO2 (30-55) mm/Hg VBG pH (7.32-7.43) VBG pCO2 (40-60) mmHg VBG HCO3 mmol/L VBG Total CO2 (22-28) mmol/L VBG O2 Sat (Calc) (40-65) % VBG Base Excess (0.0-2.0) mmol/L VBG Potassium (3.6-5.2) mmol/L Sodium 136 (132-148) mmol/l Chloride 100 (98-107) mmol/L Glucose (65-105) mg/dl Lactate (0.7-2.1) mmol/L Potassium 4.2 (3.6-5.2) mmol/L Carbon Dioxide 23 (22-30) mmol/L Anion Gap 18 (10-20) BUN 20 H (7-17) mg/dL Creatinine 0.6 L (0.7-1.2) mg/dL Est GFR ( Amer) > 60 Est GFR (Non-Af Amer) > 60 POC Glucose (mg/dL) 175 H 189 H (65-110) mg/dL Random Glucose 184 H (65-105) mg/dL Lactic Acid (0.7-2.1) mmol/L Calcium 9.4 (8.6-10.4) mg/dl Phosphorus 3.8 (2.5-4.5) mg/dL Magnesium 1.5 L (1.6-2.3) mg/dL Total Bilirubin 0.8 (0.2-1.3) mg/dL AST 40 H (14-36) U/L ALT 44 (9-52) U/L Alkaline Phosphatase 75 (38-126) U/L Total Creatine Kinase 85 (30-135) U/L CK-MB (Mass) 5.35 H (0.0-3.38) ng/mL Troponin I 0.1840 H* (0.00-0.120) ng/mL Total Protein 7.9 (6.3-8.3) g/dL Albumin 4.2 (3.5-5.0) g/dL Globulin 3.7 (2.2-3.9) gm/dL Albumin/Globulin Ratio 1.1 (1.0-2.1) Free T4 (0.78-2.19) ng/dL TSH 3rd Generation (0.46-4.68) mIU/L Venous Blood Potassium (3.6-5.2) mmol/L B-Hydroxybutyrate 0.29 H (0.02-0.27) mM 07/16/18 07/16/18 07/16/18 Range/Units 22:50 22:45 17:09 WBC (4.8-10.8) K/uL RBC (3.80-5.20) Mil/uL Hgb (11.0-16.0) g/dL Hct (34.0-47.0) % MCV (81.0-99.0) fL MCH (27.0-31.0) pg MCHC (33.0-37.0) g/dL RDW (11.5-14.5) % Plt Count (130-400) K/uL MPV (7.2-11.7) fL Neut % (Auto) (50.0-75.0) % Lymph % (Auto) (20.0-40.0) % Pratt % (Auto) (0.0-10.0) % Eos % (Auto) (0.0-4.0) % Baso % (Auto) (0.0-2.0) % Neut # (Auto) (1.8-7.0) K/uL Lymph # (Auto) (1.0-4.3) K/uL Pratt # (Auto) (0.0-0.8) K/uL Eos # (Auto) (0.0-0.7) K/uL Baso # (Auto) (0.0-0.2) K/uL pO2 37 (30-55) mm/Hg VBG pH 7.41 (7.32-7.43) VBG pCO2 35 L (40-60) mmHg VBG HCO3 22.7 mmol/L VBG Total CO2 23.3 (22-28) mmol/L VBG O2 Sat (Calc) 74.9 H (40-65) % VBG Base Excess -1.9 L (0.0-2.0) mmol/L VBG Potassium 3.9 (3.6-5.2) mmol/L Sodium 134.0 (132-148) mmol/l Chloride 106.0 (98-107) mmol/L Glucose 193 H (65-105) mg/dl Lactate 1.4 (0.7-2.1) mmol/L Potassium (3.6-5.2) mmol/L Carbon Dioxide (22-30) mmol/L Anion Gap (10-20) BUN (7-17) mg/dL Creatinine (0.7-1.2) mg/dL Est GFR ( Amer) Est GFR (Non-Af Amer) POC Glucose (mg/dL) 193 H (65-110) mg/dL Random Glucose (65-105) mg/dL Lactic Acid 2.9 H (0.7-2.1) mmol/L Calcium (8.6-10.4) mg/dl Phosphorus (2.5-4.5) mg/dL Magnesium (1.6-2.3) mg/dL Total Bilirubin (0.2-1.3) mg/dL AST (14-36) U/L ALT (9-52) U/L Alkaline Phosphatase (38-126) U/L Total Creatine Kinase (30-135) U/L CK-MB (Mass) (0.0-3.38) ng/mL Troponin I (0.00-0.120) ng/mL Total Protein (6.3-8.3) g/dL Albumin (3.5-5.0) g/dL Globulin (2.2-3.9) gm/dL Albumin/Globulin Ratio (1.0-2.1) Free T4 (0.78-2.19) ng/dL TSH 3rd Generation (0.46-4.68) mIU/L Venous Blood Potassium 3.9 (3.6-5.2) mmol/L B-Hydroxybutyrate (0.02-0.27) mM 07/16/18 07/16/18 07/16/18 Range/Units 15:33 15:09 15:09 WBC (4.8-10.8) K/uL RBC (3.80-5.20) Mil/uL Hgb (11.0-16.0) g/dL Hct (34.0-47.0) % MCV (81.0-99.0) fL MCH (27.0-31.0) pg MCHC (33.0-37.0) g/dL RDW (11.5-14.5) % Plt Count (130-400) K/uL MPV (7.2-11.7) fL Neut % (Auto) (50.0-75.0) % Lymph % (Auto) (20.0-40.0) % Pratt % (Auto) (0.0-10.0) % Eos % (Auto) (0.0-4.0) % Baso % (Auto) (0.0-2.0) % Neut # (Auto) (1.8-7.0) K/uL Lymph # (Auto) (1.0-4.3) K/uL Pratt # (Auto) (0.0-0.8) K/uL Eos # (Auto) (0.0-0.7) K/uL Baso # (Auto) (0.0-0.2) K/uL pO2 (30-55) mm/Hg VBG pH (7.32-7.43) VBG pCO2 (40-60) mmHg VBG HCO3 mmol/L VBG Total CO2 (22-28) mmol/L VBG O2 Sat (Calc) (40-65) % VBG Base Excess (0.0-2.0) mmol/L VBG Potassium (3.6-5.2) mmol/L Sodium (132-148) mmol/l Chloride (98-107) mmol/L Glucose (65-105) mg/dl Lactate (0.7-2.1) mmol/L Potassium (3.6-5.2) mmol/L Carbon Dioxide (22-30) mmol/L Anion Gap (10-20) BUN (7-17) mg/dL Creatinine (0.7-1.2) mg/dL Est GFR ( Amer) Est GFR (Non-Af Amer) POC Glucose (mg/dL) 287 H (65-110) mg/dL Random Glucose (65-105) mg/dL Lactic Acid (0.7-2.1) mmol/L Calcium (8.6-10.4) mg/dl Phosphorus (2.5-4.5) mg/dL Magnesium (1.6-2.3) mg/dL Total Bilirubin (0.2-1.3) mg/dL AST (14-36) U/L ALT (9-52) U/L Alkaline Phosphatase (38-126) U/L Total Creatine Kinase (30-135) U/L CK-MB (Mass) 4.61 H (0.0-3.38) ng/mL Troponin I 0.1280 H* (0.00-0.120) ng/mL Total Protein (6.3-8.3) g/dL Albumin (3.5-5.0) g/dL Globulin (2.2-3.9) gm/dL Albumin/Globulin Ratio (1.0-2.1) Free T4 1.25 (0.78-2.19) ng/dL TSH 3rd Generation 3.44 3.41 (0.46-4.68) mIU/L Venous Blood Potassium (3.6-5.2) mmol/L B-Hydroxybutyrate (0.02-0.27) mM Laboratory Results - last 24 hr 07/16/18 07/16/18 07/16/18 15:09 15:09 15:33 WBC RBC Hgb Hct MCV MCH MCHC RDW Plt Count MPV Neut % (Auto) Lymph % (Auto) Pratt % (Auto) Eos % (Auto) Baso % (Auto) Neut # (Auto) Lymph # (Auto) Pratt # (Auto) Eos # (Auto) Baso # (Auto) pO2 VBG pH VBG pCO2 VBG HCO3 VBG Total CO2 VBG O2 Sat (Calc) VBG Base Excess VBG Potassium Sodium Chloride Glucose Lactate Potassium Carbon Dioxide Anion Gap BUN Creatinine Est GFR ( Amer) Est GFR (Non-Af Amer) POC Glucose (mg/dL) 287 H Random Glucose Lactic Acid Calcium Phosphorus Magnesium Total Bilirubin AST ALT Alkaline Phosphatase Total Creatine Kinase CK-MB (Mass) 4.61 H Troponin I 0.1280 H* Total Protein Albumin Globulin Albumin/Globulin Ratio Free T4 1.25 TSH 3rd Generation 3.41 3.44 Venous Blood Potassium B-Hydroxybutyrate 07/16/18 07/16/18 07/16/18 17:09 22:45 22:50 WBC RBC Hgb Hct MCV MCH MCHC RDW Plt Count MPV Neut % (Auto) Lymph % (Auto) Pratt % (Auto) Eos % (Auto) Baso % (Auto) Neut # (Auto) Lymph # (Auto) Pratt # (Auto) Eos # (Auto) Baso # (Auto) pO2 37 VBG pH 7.41 VBG pCO2 35 L VBG HCO3 22.7 VBG Total CO2 23.3 VBG O2 Sat (Calc) 74.9 H VBG Base Excess -1.9 L VBG Potassium 3.9 Sodium 134.0 Chloride 106.0 Glucose 193 H Lactate 1.4 Potassium Carbon Dioxide Anion Gap BUN Creatinine Est GFR ( Amer) Est GFR (Non-Af Amer) POC Glucose (mg/dL) 193 H Random Glucose Lactic Acid 2.9 H Calcium Phosphorus Magnesium Total Bilirubin AST ALT Alkaline Phosphatase Total Creatine Kinase CK-MB (Mass) Troponin I Total Protein Albumin Globulin Albumin/Globulin Ratio Free T4 TSH 3rd Generation Venous Blood Potassium 3.9 B-Hydroxybutyrate 07/16/18 07/17/18 07/17/18 23:33 00:40 05:19 WBC RBC Hgb Hct MCV MCH MCHC RDW Plt Count MPV Neut % (Auto) Lymph % (Auto) Pratt % (Auto) Eos % (Auto) Baso % (Auto) Neut # (Auto) Lymph # (Auto) Pratt # (Auto) Eos # (Auto) Baso # (Auto) pO2 VBG pH VBG pCO2 VBG HCO3 VBG Total CO2 VBG O2 Sat (Calc) VBG Base Excess VBG Potassium Sodium 136 Chloride 100 Glucose Lactate Potassium 4.2 Carbon Dioxide 23 Anion Gap 18 BUN 20 H Creatinine 0.6 L Est GFR ( Amer) > 60 Est GFR (Non-Af Amer) > 60 POC Glucose (mg/dL) 189 H 175 H Random Glucose 184 H Lactic Acid Calcium 9.4 Phosphorus 3.8 Magnesium 1.5 L Total Bilirubin 0.8 AST 40 H ALT 44 Alkaline Phosphatase 75 Total Creatine Kinase 85 CK-MB (Mass) 5.35 H Troponin I 0.1840 H* Total Protein 7.9 Albumin 4.2 Globulin 3.7 Albumin/Globulin Ratio 1.1 Free T4 TSH 3rd Generation Venous Blood Potassium B-Hydroxybutyrate 0.29 H 07/17/18 07/17/18 07/17/18 06:34 06:34 11:58 WBC 11.9 H RBC 3.45 L Hgb 9.3 L Hct 27.6 L MCV 79.9 L D MCH 26.8 L MCHC 33.6 RDW 13.4 Plt Count 204 MPV 9.3 Neut % (Auto) 76.6 H Lymph % (Auto) 12.8 L Pratt % (Auto) 9.4 Eos % (Auto) 0.6 Baso % (Auto) 0.6 Neut # (Auto) 9.1 H Lymph # (Auto) 1.5 Pratt # (Auto) 1.1 H Eos # (Auto) 0.1 Baso # (Auto) 0.1 pO2 VBG pH VBG pCO2 VBG HCO3 VBG Total CO2 VBG O2 Sat (Calc) VBG Base Excess VBG Potassium Sodium 134 Chloride 100 Glucose Lactate Potassium 3.5 L Carbon Dioxide 24 Anion Gap 14 BUN 17 Creatinine 0.7 Est GFR ( Amer) > 60 Est GFR (Non-Af Amer) > 60 POC Glucose (mg/dL) 322 H Random Glucose 177 H Lactic Acid Calcium 8.9 Phosphorus 3.4 Magnesium 1.4 L Total Bilirubin 0.7 AST 30 ALT 39 Alkaline Phosphatase 77 Total Creatine Kinase CK-MB (Mass) 3.49 H Troponin I 0.3360 H* Total Protein 7.1 Albumin 3.6 Globulin 3.5 Albumin/Globulin Ratio 1.0 Free T4 TSH 3rd Generation Venous Blood Potassium B-Hydroxybutyrate Fingerstick Blood Sugar Results: 322 Review of Systems - Review of Systems All systems: reviewed and no additional remarkable complaints except (no complaints) Critical Care Progress Note - Nutrition Nutrition: Nutrition Category Date Time Status Heart Healthy Diet [DIET] Diets 07/17/18 Breakfast Active Assessment/Plan (1) Third degree atrioventricular block Assessment and plan: Patient is a 82 year old male with past medical history of HTN, T2DM, HLD found to have 3rd degree heart block. Peding EP (Dr Oliver) and Cardio (Dr Lincoln) recs Neuro: - AAO x3 Pulm: - CXR shows patchy airspace disease in lower lobes, worse in LLL. Possible CHF, pneumonia. 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 Will need stent placement, to be done on Thursday. Then will have PPM placement. Currently has temporary IV pacer in place, pacing appropriately. GI: - Pepcid 20mg PO daily heart healthy diet Renal: - monitor I and O ID: - Vancomycin 2 gm IV given - Zosyn 3.375 gm IV given once - Followup blood cultures, urine cultures Heme/Onc - monitor H/H -given calcium gluconate in ED Endo: - maintain euglycemia - ISS high dose protocol - Accuchecks Q6H PPX: Pepcid 20 mg PO daily, Lovenox 30 mg SC daily Critical Care Time spent 35 minutes Multi-disciplinary rounds were performed with house staff, nursing, speech therapy, respiratory therapy, pharmacy and nutrition with integrated input from the primary team/attending and other consulting services. The documented time is cumulative and includes review of patient data/exams/labs/chart review and examination of the patient on rounds and throughout the day; time is exclusive of any procedures or teaching time. Current Visit: Yes Status: Acute
[2018-07-17] MEDS ORDERED: (Novolog) Insulin Aspart, Recombinant 100 u/ml 10 ml vial SC SCH ×2 (16:40→22:00)
--- NOTE | 2018-07-17 16:58 | CP.PCM.PN ---
Subjective - Date & Time of Evaluation Date of Evaluation: 07/17/18 Time of Evaluation: 18:25 - Subjective Subjective: Doing better; no active complaints. Family at bedside Objective - Vital Signs/Intake and Output Vital Signs (last 24 hours): Temp Pulse Resp BP Pulse Ox 98.8 F 81 21 137/47 L 97 07/17/18 12:00 07/17/18 15:50 07/17/18 15:50 07/17/18 15:50 07/17/18 15:50 Intake and Output: 07/17/18 07/17/18 06:59 18:59 Intake Total 187.5 813.5 Output Total 2275 460 Balance -2087.5 353.5 - Medications Medications: Current Medications Amlodipine Besylate (Norvasc) 10 mg PO DAILY [facility] Last Admin: 07/17/18 09:16 Dose: 10 mg Aspirin (Ecotrin) 81 mg PO DAILY [facility] Last Admin: 07/17/18 09:16 Dose: 81 mg Clopidogrel Bisulfate (Plavix) 75 mg PO DAILY [facility] Last Admin: 07/17/18 09:15 Dose: 75 mg Enoxaparin Sodium (Lovenox) 60 mg SC Q12 [facility] Last Admin: 07/17/18 09:16 Dose: 60 mg Famotidine (Pepcid) 20 mg PO BID [facility] Last Admin: 07/17/18 09:16 Dose: 20 mg Hydralazine HCl (Apresoline) 10 mg IVP Q6H PRN PRN Reason: Systolic Blood Pressure Nitroglycerin/Dextrose (Nitroglycerin 50 Mg/250 Ml D5w) 50 mg in 250 mls @ 1.5 mls/hr IV .Q24H [facility]; Protocol Last Titration: 07/17/18 10:00 Dose: 0 mcg/min, 0 mls/hr Insulin Aspart (Novolog) 0 unit SC ACHS [facility]; Protocol Multivitamins/Minerals (Therapeutic-M Tab) 1 tab PO DAILY [facility] Last Admin: 07/17/18 09:16 Dose: 1 tab Pneumococcal Polyvalent Vaccine (Pneumovax 23 Vaccine) 0.5 ml IM .ONCE ONE Stop: 07/18/18 10:01 Rosuvastatin Calcium (Crestor) 5 mg PO HS [facility] Last Admin: 07/16/18 23:21 Dose: 5 mg - Labs Labs: 07/17/18 06:34 07/17/18 06:34 PT 11.3 SECONDS (9.7-12.2) 07/16/18 12:58 INR 1.0 07/16/18 12:58 APTT 28 SECONDS (21-34) 07/16/18 12:58 Assessment and Plan - Assessment and Plan (Free Text) Plan: Assessment/Plan (1) Third degree atrioventricular block Assessment and plan: Patient is a 82 year old male with past medical history of HTN, T2DM, HLD found to have 3rd degree heart block. Pending EP (Dr Oliver) and Cardio (Dr Lincoln) recs Neuro: - AAO x3 Pulm: - CXR shows patchy airspace disease in lower lobes, worse in LLL. Possible CHF, pneumonia. 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 Will need stent placement, to be done on Thursday. Then will have PPM placement. Currently has temporary IV pacer in place, pacing appropriately. GI: - Pepcid 20mg PO daily heart healthy diet Renal: - monitor I and O ID: - Vancomycin 2 gm IV given - Zosyn 3.375 gm IV given once - Followup blood cultures, urine cultures Heme/Onc - monitor H/H -given calcium gluconate in ED Endo: - maintain euglycemia - ISS high dose protocol - Accuchecks Q6H PPX: Pepcid 20 mg PO daily, Lovenox 30 mg SC daily
--- NOTE | 2018-07-17 21:56 | CP.PCM.PN ---
Subjective - Date & Time of Evaluation Date of Evaluation: 07/17/18 Time of Evaluation: 21:53 - Subjective Subjective: Patient denies chest pain and dyspnea S/P cardiac cath and TVP PMH: HTN, T2DM, HLD PSH: None SHx: Denies alcohol, tobacco, illicit drug use. Homemaker. Allergies: NKDA FHx: PMD: Dr. Rick Fonseca Physical Exam - Constitutional Appears: In Acute Distress - Head Exam Head Exam: ATRAUMATIC, NORMAL INSPECTION - Eye Exam Eye Exam: EOMI - ENT Exam ENT Exam: Mucous Membranes Moist - Additional Findings Additional findings: Appears: Non-toxic, Other Skin: Normal Color, Warm, Dry Head: Atraumatic, Normacephalic Eye(s): bilateral: Normal Inspection Oral Mucosa: Moist Neck: Supple Chest: Symmetrical, No Tenderness Cardiovascular: JVD Respiratory: CTA Gastrointestinal/Abdominal: Soft, No Tenderness Back: No CVA Tenderness Extremity: Normal ROM Neurological/Psych: Oriented x3, Normal Speech Assessment & Plan - Assessment and Plan (Free Text) Assessment: CAD Non STEMI CHB on TVP DM 2 Hyperlipidemia For PCI Thursday f/by PPM Objective - Vital Signs/Intake and Output Vital Signs (last 24 hours): Temp Pulse Resp BP Pulse Ox 98.8 F 74 20 134/55 L 100 07/17/18 16:00 07/17/18 20:00 07/17/18 20:00 07/17/18 19:50 07/17/18 17:00 Intake and Output: 07/17/18 07/18/18 18:59 06:59 Intake Total 1313.5 Output Total 760 Balance 553.5 - Medications Medications: Current Medications Amlodipine Besylate (Norvasc) 10 mg PO DAILY [facility] Last Admin: 07/17/18 09:16 Dose: 10 mg Aspirin (Ecotrin) 81 mg PO DAILY [facility] Last Admin: 07/17/18 09:16 Dose: 81 mg Clopidogrel Bisulfate (Plavix) 75 mg PO DAILY [facility] Last Admin: 07/17/18 09:15 Dose: 75 mg Enoxaparin Sodium (Lovenox) 60 mg SC Q12 [facility] Last Admin: 07/17/18 09:16 Dose: 60 mg Famotidine (Pepcid) 20 mg PO BID [facility] Last Admin: 07/17/18 18:13 Dose: 20 mg Hydralazine HCl (Apresoline) 10 mg IVP Q6H PRN PRN Reason: Systolic Blood Pressure Nitroglycerin/Dextrose (Nitroglycerin 50 Mg/250 Ml D5w) 50 mg in 250 mls @ 1.5 mls/hr IV .Q24H [facility]; Protocol Last Titration: 07/17/18 17:40 Dose: 5 mcg/min, 1.5 mls/hr Insulin Aspart (Novolog) 0 unit SC ACH[facility]; Protocol Last Admin: 07/17/18 18:14 Dose: 10 units Multivitamins/Minerals (Therapeutic-M Tab) 1 tab PO DAILY [facility] Last Admin: 07/17/18 09:16 Dose: 1 tab Pneumococcal Polyvalent Vaccine (Pneumovax 23 Vaccine) 0.5 ml IM .ONCE ONE Stop: 07/18/18 10:01 Rosuvastatin Calcium (Crestor) 5 mg PO HS [facility] Last Admin: 07/16/18 23:21 Dose: 5 mg - Labs Labs: 07/17/18 06:34 07/17/18 06:34 PT 11.3 SECONDS (9.7-12.2) 07/16/18 12:58 INR 1.0 07/16/18 12:58 APTT 28 SECONDS (21-34) 07/16/18 12:58
[2018-07-17] MEDS ORDERED: Magnesium Sulfate 1 gm in D5W 1 GM/100 ML BAG IVPB ONE (23:00)
[2018-07-18] MEDS: Potassium Chloride 20 mEq ER Tab PO SCH ×2 (00:12→09:01)
[2018-07-18] MEDS: Nitroglycerin 50mg in D5W 50 MG/250 ML BOTTLE IV SCH (00:45)
[2018-07-18 04:38] LABS: BASO # 0.1 K/uL (0.0-0.2); BASO % 0.7 % (0.0-2.0); EOS # 0.3 K/uL (0.0-0.7); EOS % 3.9 % (0.0-4.0); HEMOGLOBIN 8.9 g/dL (11.0-16.0); LYMPH # 2.3 K/uL (1.0-4.3); LYMPH % 27.5 % (20.0-40.0); MEAN CELL VOLUME 79.4 fL (81.0-99.0); MEAN CORPUSCULAR HEMOGLOBIN 26.8 pg (27.0-31.0); MEAN CORPUSCULAR HGB CONC 33.7 g/dL (33.0-37.0); MEAN PLATELET VOLUME 8.7 fL (7.2-11.7); MONO # 0.8 K/uL (0.0-0.8); MONO % 9.6 % (0.0-10.0); NEUT # 4.8 K/uL (1.8-7.0); NEUT % 58.3 % (50.0-75.0); RBC 3.33 Mil/uL (3.80-5.20); RED CELL DISTRIBUTION WIDTH 13.5 % (11.5-14.5); WHITE BLOOD COUNT 8.2 K/uL (4.8-10.8)
[2018-07-18 05:23] LABS: ALB/GLOB RATIO 0.9 (1.0-2.1); ALBUMIN 3.1 g/dL (3.5-5.0); ALT/SGPT 32 U/L (9-52); AST/SGOT 22 U/L (14-36); BLOOD UREA NITROGEN 14 mg/dL (7-17); CALCIUM 8.5 mg/dl (8.6-10.4); GFR NON-AFRICAN AMERICAN > 60
[2018-07-18] MEDS ORDERED: Potassium Chloride 10 mEq ER Tab PO SCH (08:00)
--- NOTE | 2018-07-18 08:25 | CP.PCM.PN ---
Subjective - Date & Time of Evaluation Date of Evaluation: 07/18/18 Time of Evaluation: 08:20 - Subjective Subjective: Medical Attending Note: Patient seen and examined this morning. No family present at bedside. Patient taken off Nitro overnight. Patient describes no pain. unable to ROS secondary to language barrier, unable to use [employer] professor, delay noted. will re- attempt later. Objective - Vital Signs/Intake and Output Vital Signs (last 24 hours): Temp Pulse Resp BP Pulse Ox 98.9 F 74 16 92/61 L 99 07/18/18 04:00 07/18/18 07:54 07/18/18 07:00 07/18/18 06:49 07/18/18 07:00 Intake and Output: 07/18/18 07/18/18 06:59 18:59 Intake Total 340 0 Output Total 700 Balance -360 0 - Medications Medications: Current Medications Amlodipine Besylate (Norvasc) 10 mg PO DAILY [facility] Last Admin: 07/17/18 09:16 Dose: 10 mg Aspirin (Ecotrin) 81 mg PO DAILY [facility] Last Admin: 07/17/18 09:16 Dose: 81 mg Clopidogrel Bisulfate (Plavix) 75 mg PO DAILY [facility] Last Admin: 07/17/18 09:15 Dose: 75 mg Enoxaparin Sodium (Lovenox) 60 mg SC Q12 [facility] Last Admin: 07/17/18 22:01 Dose: 60 mg Famotidine (Pepcid) 20 mg PO BID [facility] Last Admin: 07/17/18 18:13 Dose: 20 mg Furosemide (Lasix) 20 mg IVP DAILY [facility] Last Admin: 07/17/18 22:59 Dose: 20 mg Hydralazine HCl (Apresoline) 10 mg IVP Q6H PRN PRN Reason: Systolic Blood Pressure Nitroglycerin/Dextrose (Nitroglycerin 50 Mg/250 Ml D5w) 50 mg in 250 mls @ 1.5 mls/hr IV .Q24H [facility]; Protocol Last Admin: 07/18/18 00:45 Dose: Not Given Insulin Aspart (Novolog) 0 unit SC ACHS [facility]; Protocol Last Admin: 07/17/18 22:01 Dose: Not Given Magnesium Oxide (Mag-Ox) 400 mg PO DAILY [facility] Multivitamins/Minerals (Therapeutic-M Tab) 1 tab PO DAILY [facility] Last Admin: 07/17/18 09:16 Dose: 1 tab Pneumococcal Polyvalent Vaccine (Pneumovax 23 Vaccine) 0.5 ml IM .ONCE ONE Stop: 07/18/18 10:01 Potassium Chloride (K-Dur 20 Meq Er Tab) 40 meq PO DAILY [facility] Last Admin: 07/18/18 00:12 Dose: 40 meq Potassium Chloride (Potassium Chloride Oral Soln) 20 meq PO DAILY [facility] Rosuvastatin Calcium (Crestor) 5 mg PO HS [facility] Last Admin: 07/17/18 22:02 Dose: 5 mg - Labs Labs: 07/18/18 04:32 07/18/18 04:32 PT 11.3 SECONDS (9.7-12.2) 07/16/18 12:58 INR 1.0 07/16/18 12:58 APTT 28 SECONDS (21-34) 07/16/18 12:58 - Constitutional Appears: Non-toxic, No Acute Distress - Head Exam Head Exam: NORMAL INSPECTION Additional comments: Dressing over the right side of neck: dry/intact - Eye Exam Eye Exam: EOMI - ENT Exam ENT Exam: Mucous Membranes Moist - Respiratory Exam Respiratory Exam: Clear to Ausculation Bilateral, NORMAL BREATHING PATTERN. absent: Rales, Rhonchi, Wheezes - Cardiovascular Exam Cardiovascular Exam: REGULAR RHYTHM, +S1, +S2 - GI/Abdominal Exam GI & Abdominal Exam: Soft, Normal Bowel Sounds. absent: Distended, Firm, Guarding, Rigid, Tenderness, Rebound - Extremities Exam Extremities Exam: absent: Pedal Edema, Tenderness - Neurological Exam Neurological Exam: Alert, Awake, Oriented x3 - Skin Skin Exam: Dry, Normal Color, Warm Assessment and Plan (1) Third degree atrioventricular block Status: Acute (2) Hypertension Status: Acute (3) Lipid disorder Status: Acute (4) Diabetes Status: Acute (5) Prophylactic measure Status: Acute Attending/Attestation - Attestation I have personally seen and examined this patient.: Yes I have fully participated in the care of the patient.: Yes I have reviewed all pertinent clinical information, including history, physical exam and plan: Yes Notes (Text): 1. Coronary Artery Disease Complete Heart Block Nonstemi Cardiac Risk Factors: hypertension, diabetes, lipid disorder Assessment/Plan * Cardiology: Dr. Lincoln on case-->help appreciated * Cardiology EPS: Dr. Oliver on the case-->help appreciated * Patient s/p LHC/TVP/Peripheral angiogram on 07/16/18 * PCI for RCA on Thursday07/19/18 L Main: Distal 20% 2. LAD: Distal diffuse 20% narrowing 3. L Cx: Proximal 40% 4. RCA: Mid 95% 5. EF 80% Severe Left Iliac and SFA disease * Lovenox 60mg subq12 * Norvasc 10mg PO daily * Aspirin 81mg PO daily * Plavix 75mg PO daily * lasix 20mg IV q daily * Kdur 40meq PO daily * Crestor 5mg PoqHS * Off nitro drip: patient is chest pain free at this time * official echocardiogram pending 2. Diabetes Assessment/Plan * Novolog subq ACHS * check a1c, lipid panel * Hypoglycemic protocol 3. Hypertension Assessment/Plan * Norvasc 10mg PO daily * Aspirin 81mg PO daily * Plavix 75mg PO daily 4) Hypokalemia Assessment/Plan * normalized * Patient is on lasix and kdur supplement 5) Leukocytosis Assessment/Plan * Urine culture: no growth * MRSA not detected * 07/16 No growth after 24 hours X2 6. Prophylactic measure Assessment/Plan * Lovenox 60mg subq12 * Pepcid 20mg PO bid
[2018-07-18] MEDS: (Novolog) Insulin Aspart, Recombinant 100 u/ml 10 ml vial SC SCH ×4 (08:31→22:27)
[2018-07-18] MEDS ORDERED: Dextrose 50% SYRINGE Inj (50 ml) IVP PRN (08:33)
[2018-07-18] MEDS ORDERED: Dextrose 50% SYRINGE Inj (50 ml) IV PRN (08:33)
[2018-07-18] MEDS ORDERED: Glucagon Recombinant 1 mg Inj IM PRN (08:33)
[2018-07-18] MEDS: Multivitamin With Minerals Tab PO SCH (09:00)
[2018-07-18] MEDS: Enoxaparin 60 mg Syringe SC SCH ×2 (09:02→23:10)
[2018-07-18] MEDS ORDERED: Magnesium Oxide 400 mg Tab UD PO SCH (10:00)
[2018-07-18] MEDS ORDERED: Potassium Chloride 20 mEq/15 ml LIQ UD PO SCH (10:00)
[2018-07-18] MEDS ORDERED: Pneumococcal 23-Valent Vaccine IM ONE (10:00)
--- NOTE | 2018-07-18 16:10 | CP.CCUPN ---
CCU Subjective - Physician Review Events Since Last Encounter (Free Text): 07/18/18 16:09 clinically stable, no complaints. CCU Objective - Vital Signs / Intake & Output Vital Signs (Last 4 hours): Vital Signs Pulse Resp BP Pulse Ox 07/18/18 14:00 74 19 98 07/18/18 13:50 74 24 114/71 98 07/18/18 13:00 74 12 100 07/18/18 12:50 74 19 110/62 99 Intake and Output (Last 8hrs): Intake & Output 07/18/18 07/18/18 07/18/18 06:59 14:59 22:59 Intake Total 220 350 Output Total 700 300 Balance -480 50 Weight 111 lb 3.2 oz Intake: Intake, IV Amount 100 Right IJ Cordis 100 Oral 120 350 Output: Urine 700 300 Urine, Voided 700 300 Other: # Voids Urine, Voided 0 1 # Bowel Movements 1 - Physical Exam Head: Positive for: Atraumatic, Normocephalic Pupils: Positive for: PERRL Extroacular Muscles: Positive for: EOMI Conjunctiva: Positive for: Normal Mouth: Positive for: Moist Mucous Membranes Respiratory/Chest: Positive for: Clear to Auscultation, Good Air Exchange Cardiovascular: Positive for: Regular Rate and Rhythm Abdomen: Positive for: Normal Bowel Sounds. Negative for: Tenderness, Diste ntion Upper Extremity: Positive for: Normal Inspection Lower Extremity: Positive for: Normal Inspection Neurological: Positive for: GCS=15, Speech Normal Psychiatric: Positive for: Alert, Oriented x 3 - Medications Active Medications: Active Medications Generic Name Dose Route Start Last Admin Trade Name Freq PRN Reason Stop Dose Admin Amlodipine Besylate 10 mg 07/17/18 10:00 07/18/18 09:06 Norvasc PO 10 mg DAILY [facility] Administration Aspirin 81 mg 07/17/18 10:00 07/18/18 09:00 Ecotrin PO 81 mg DAILY [facility] Administration Clopidogrel Bisulfate 75 mg 07/17/18 10:00 07/18/18 09:00 Plavix PO 75 mg DAILY [facility] Administration Dextrose 50 ml 07/18/18 08:33 Dextrose 50% Inj IVP ONCE PRN Hypoglycemia Dextrose 0 ml 07/18/18 08:33 Dextrose 50% Inj IV STAT PRN Hypoglycemia Protocol Protocol Dextrose 0 gm 07/18/18 08:33 Glutose 15 PO ONCE PRN Hypoglycemia Protocol Protocol Enoxaparin Sodium 60 mg 07/17/18 10:00 07/18/18 09:02 Lovenox SC 60 mg Q12 [facility] Administration Famotidine 20 mg 07/16/18 22:30 07/18/18 09:01 Pepcid PO 20 mg BID [facility] Administration Furosemide 20 mg 07/17/18 23:00 07/18/18 09:00 Lasix IVP 20 mg DAILY [facility] Administration Glucagon 1 mg 07/18/18 08:33 Glucagen Diagnostic Kit IM STAT PRN Hypoglycemia Protocol Protocol Hydralazine HCl 10 mg 07/17/18 00:38 Apresoline IVP Q6H PRN Systolic Blood Pressure Nitroglycerin/Dextrose 50 mg in 250 mls @ 1.5 mls/hr 07/17/18 00:45 07/18/18 00:45 Nitroglycerin 50 Mg/250 Ml D5w IV Not Given .Q24H [facility] Protocol 5 MCG/MIN Dextrose 1,000 mls @ 0 mls/hr 07/18/18 08:33 Dextrose 5% In Water 1000 Ml IV .Q0M PRN Hypoglycemia Protocol Protocol Per Protocol Insulin Aspart 0 unit 07/17/18 18:00 07/18/18 12:36 Novolog SC 6 units ACHS [facility] Administration Protocol Magnesium Oxide 400 mg 07/18/18 10:00 07/18/18 09:15 Mag-Ox PO Not Given DAILY [facility] Multivitamins/Minerals 1 tab 07/17/18 10:00 07/18/18 09:00 Therapeutic-M Tab PO 1 tab DAILY [facility] Administration Pneumococcal Polyvalent Vaccine 0.5 ml 07/20/18 10:00 Pneumovax 23 Vaccine IM 07/20/18 10:01 .ONCE ONE Potassium Chloride 40 meq 07/17/18 23:15 07/18/18 09:01 K-Dur 20 Meq Er Tab PO 40 meq DAILY [facility] Administration Rosuvastatin Calcium 5 mg 07/16/18 22:00 07/17/18 22:02 Crestor PO 5 mg HS [facility] Administration - Patient Studies Lab Studies: Microbiology Studies 07/16/18 15:09 MRSA Culture (Admit) - Final Nose MRSA NOT DETECTED 07/16/18 14:16 Urine Culture - Final Urine No Growth (<1,000 CFU/ML) 07/16/18 16:47 Blood Culture - Preliminary Blood-Venous NO GROWTH AFTER 24 HOURS 07/16/18 16:47 Blood Culture - Preliminary Blood-Venous NO GROWTH AFTER 24 HOURS Lab Studies 07/18/18 07/18/18 07/18/18 Range/Units 11:39 07:26 04:32 WBC (4.8-10.8) K/uL RBC (3.80-5.20) Mil/uL Hgb (11.0-16.0) g/dL Hct (34.0-47.0) % MCV (81.0-99.0) fL MCH (27.0-31.0) pg MCHC (33.0-37.0) g/dL RDW (11.5-14.5) % Plt Count (130-400) K/uL MPV (7.2-11.7) fL Neut % (Auto) (50.0-75.0) % Lymph % (Auto) (20.0-40.0) % Moffat % (Auto) (0.0-10.0) % Eos % (Auto) (0.0-4.0) % Baso % (Auto) (0.0-2.0) % Neut # (Auto) (1.8-7.0) K/uL Lymph # (Auto) (1.0-4.3) K/uL Moffat # (Auto) (0.0-0.8) K/uL Eos # (Auto) (0.0-0.7) K/uL Baso # (Auto) (0.0-0.2) K/uL Sodium 136 (132-148) mmol/L Potassium 4.4 (3.6-5.2) mmol/L Chloride 102 (98-107) mmol/L Carbon Dioxide 28 (22-30) mmol/L Anion Gap 11 (10-20) BUN 14 (7-17) mg/dL Creatinine 0.7 (0.7-1.2) mg/dL Est GFR ( Amer) > 60 Est GFR (Non-Af Amer) > 60 POC Glucose (mg/dL) 281 H 175 H (65-110) mg/dL Random Glucose 158 H (65-105) mg/dL Calcium 8.5 L (8.6-10.4) mg/dl Phosphorus 3.3 (2.5-4.5) mg/dL Magnesium 2.3 (1.6-2.3) mg/dL Total Bilirubin 0.5 (0.2-1.3) mg/dL AST 22 (14-36) U/L ALT 32 (9-52) U/L Alkaline Phosphatase 72 (38-126) U/L Total Protein 6.5 (6.3-8.3) g/dL Albumin 3.1 L (3.5-5.0) g/dL Globulin 3.4 (2.2-3.9) gm/dL Albumin/Globulin Ratio 0.9 L (1.0-2.1) 07/18/18 07/18/18 07/17/18 Range/Units 04:32 00:04 19:38 WBC 8.2 (4.8-10.8) K/uL RBC 3.33 L (3.80-5.20) Mil/uL Hgb 8.9 L (11.0-16.0) g/dL Hct 26.5 L (34.0-47.0) % MCV 79.4 L (81.0-99.0) fL MCH 26.8 L (27.0-31.0) pg MCHC 33.7 (33.0-37.0) g/dL RDW 13.5 (11.5-14.5) % Plt Count 174 (130-400) K/uL MPV 8.7 (7.2-11.7) fL Neut % (Auto) 58.3 (50.0-75.0) % Lymph % (Auto) 27.5 (20.0-40.0) % Moffat % (Auto) 9.6 (0.0-10.0) % Eos % (Auto) 3.9 (0.0-4.0) % Baso % (Auto) 0.7 (0.0-2.0) % Neut # (Auto) 4.8 (1.8-7.0) K/uL Lymph # (Auto) 2.3 (1.0-4.3) K/uL Moffat # (Auto) 0.8 (0.0-0.8) K/uL Eos # (Auto) 0.3 (0.0-0.7) K/uL Baso # (Auto) 0.1 (0.0-0.2) K/uL Sodium (132-148) mmol/L Potassium (3.6-5.2) mmol/L Chloride (98-107) mmol/L Carbon Dioxide (22-30) mmol/L Anion Gap (10-20) BUN (7-17) mg/dL Creatinine (0.7-1.2) mg/dL Est GFR ( Amer) Est GFR (Non-Af Amer) POC Glucose (mg/dL) 122 H 235 H (65-110) mg/dL Random Glucose (65-105) mg/dL Calcium (8.6-10.4) mg/dl Phosphorus (2.5-4.5) mg/dL Magnesium (1.6-2.3) mg/dL Total Bilirubin (0.2-1.3) mg/dL AST (14-36) U/L ALT (9-52) U/L Alkaline Phosphatase (38-126) U/L Total Protein (6.3-8.3) g/dL Albumin (3.5-5.0) g/dL Globulin (2.2-3.9) gm/dL Albumin/Globulin Ratio (1.0-2.1) 07/17/18 Range/Units 16:21 WBC (4.8-10.8) K/uL RBC (3.80-5.20) Mil/uL Hgb (11.0-16.0) g/dL Hct (34.0-47.0) % MCV (81.0-99.0) fL MCH (27.0-31.0) pg MCHC (33.0-37.0) g/dL RDW (11.5-14.5) % Plt Count (130-400) K/uL MPV (7.2-11.7) fL Neut % (Auto) (50.0-75.0) % Lymph % (Auto) (20.0-40.0) % Moffat % (Auto) (0.0-10.0) % Eos % (Auto) (0.0-4.0) % Baso % (Auto) (0.0-2.0) % Neut # (Auto) (1.8-7.0) K/uL Lymph # (Auto) (1.0-4.3) K/uL Moffat # (Auto) (0.0-0.8) K/uL Eos # (Auto) (0.0-0.7) K/uL Baso # (Auto) (0.0-0.2) K/uL Sodium (132-148) mmol/L Potassium (3.6-5.2) mmol/L Chloride (98-107) mmol/L Carbon Dioxide (22-30) mmol/L Anion Gap (10-20) BUN (7-17) mg/dL Creatinine (0.7-1.2) mg/dL Est GFR ( Amer) Est GFR (Non-Af Amer) POC Glucose (mg/dL) 366 H (65-110) mg/dL Random Glucose (65-105) mg/dL Calcium (8.6-10.4) mg/dl Phosphorus (2.5-4.5) mg/dL Magnesium (1.6-2.3) mg/dL Total Bilirubin (0.2-1.3) mg/dL AST (14-36) U/L ALT (9-52) U/L Alkaline Phosphatase (38-126) U/L Total Protein (6.3-8.3) g/dL Albumin (3.5-5.0) g/dL Globulin (2.2-3.9) gm/dL Albumin/Globulin Ratio (1.0-2.1) Laboratory Results - last 24 hr 07/17/18 07/17/18 07/18/18 16:21 19:38 00:04 WBC RBC Hgb Hct MCV MCH MCHC RDW Plt Count MPV Neut % (Auto) Lymph % (Auto) Moffat % (Auto) Eos % (Auto) Baso % (Auto) Neut # (Auto) Lymph # (Auto) Moffat # (Auto) Eos # (Auto) Baso # (Auto) Sodium Potassium Chloride Carbon Dioxide Anion Gap BUN Creatinine Est GFR ( Amer) Est GFR (Non-Af Amer) POC Glucose (mg/dL) 366 H 235 H 122 H Random Glucose Calcium Phosphorus Magnesium Total Bilirubin AST ALT Alkaline Phosphatase Total Protein Albumin Globulin Albumin/Globulin Ratio 07/18/18 07/18/18 07/18/18 04:32 04:32 07:26 WBC 8.2 RBC 3.33 L Hgb 8.9 L Hct 26.5 L MCV 79.4 L MCH 26.8 L MCHC 33.7 RDW 13.5 Plt Count 174 MPV 8.7 Neut % (Auto) 58.3 Lymph % (Auto) 27.5 Moffat % (Auto) 9.6 Eos % (Auto) 3.9 Baso % (Auto) 0.7 Neut # (Auto) 4.8 Lymph # (Auto) 2.3 Moffat # (Auto) 0.8 Eos # (Auto) 0.3 Baso # (Auto) 0.1 Sodium 136 Potassium 4.4 Chloride 102 Carbon Dioxide 28 Anion Gap 11 BUN 14 Creatinine 0.7 Est GFR ( Amer) > 60 Est GFR (Non-Af Amer) > 60 POC Glucose (mg/dL) 175 H Random Glucose 158 H Calcium 8.5 L Phosphorus 3.3 Magnesium 2.3 Total Bilirubin 0.5 AST 22 ALT 32 Alkaline Phosphatase 72 Total Protein 6.5 Albumin 3.1 L Globulin 3.4 Albumin/Globulin Ratio 0.9 L 07/18/18 11:39 WBC RBC Hgb Hct MCV MCH MCHC RDW Plt Count MPV Neut % (Auto) Lymph % (Auto) Moffat % (Auto) Eos % (Auto) Baso % (Auto) Neut # (Auto) Lymph # (Auto) Moffat # (Auto) Eos # (Auto) Baso # (Auto) Sodium Potassium Chloride Carbon Dioxide Anion Gap BUN Creatinine Est GFR ( Amer) Est GFR (Non-Af Amer) POC Glucose (mg/dL) 281 H Random Glucose Calcium Phosphorus Magnesium Total Bilirubin AST ALT Alkaline Phosphatase Total Protein Albumin Globulin Albumin/Globulin Ratio Fingerstick Blood Sugar Results: 281 Review of Systems - Review of Systems All systems: reviewed and no additional remarkable complaints except (no complaints) Critical Care Progress Note - Nutrition Nutrition: Nutrition Category Date Time Status Heart Healthy Diet [DIET] Diets 07/17/18 Breakfast Active NPO Diet [DIET] Diets 07/19/18 Lunch Active Assessment/Plan (1) Third degree atrioventricular block Assessment and plan: Patient is a 82 year old male with past medical history of HTN, T2DM, HLD found to have 3rd degree heart block. Peding EP (Dr Oliver) and Cardio (Dr Lincoln) recs Neuro: - AAO x3 Pulm: - CXR shows patchy airspace disease in lower lobes, worse in LLL. Possible CHF, pneumonia. 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 Will need stent placement, to be done on Thursday. Then will have PPM placement. Currently has temporary IV pacer in place, pacing appropriately. GI: - Pepcid 20mg PO daily heart healthy diet Renal: - monitor I and O ID: - Vancomycin 2 gm IV given - Zosyn 3.375 gm IV given once - Followup blood cultures, urine cultures Heme/Onc - monitor H/H -given calcium gluconate in ED Endo: - maintain euglycemia - ISS high dose protocol - Accuchecks Q6H PPX: Pepcid 20 mg PO daily, Lovenox 30 mg SC daily clinically same Critical Care Time spent 35 minutes Multi-disciplinary rounds were performed with house staff, nursing, speech therapy, respiratory therapy, pharmacy and nutrition with integrated input from the primary team/attending and other consulting services. The documented time is cumulative and includes review of patient data/exams/labs/chart review and examination of the patient on rounds and throughout the day; time is exclusive of any procedures or teaching time. Current Visit: Yes Status: Acute
--- NOTE | 2018-07-18 19:56 | CP.PCM.PN ---
Subjective - Date & Time of Evaluation Date of Evaluation: 07/18/18 Time of Evaluation: 13:00 - Subjective Subjective: No overnight Cardiac events Hgb 8.9 Monitor Hgb in am For PCI tomorrow at 3pm in [facility] after full breakfast tomorrow Okay to give morning Lovenox if Hgb stable Objective - Vital Signs/Intake and Output Vital Signs (last 24 hours): Temp Pulse Resp BP Pulse Ox 99.1 F 74 12 115/64 100 07/18/18 16:00 07/18/18 18:00 07/18/18 18:00 07/18/18 17:49 07/18/18 18:00 Intake and Output: 07/18/18 07/19/18 18:59 06:59 Intake Total 500 50 Output Total 500 Balance 0 50 - Medications Medications: Current Medications Amlodipine Besylate (Norvasc) 10 mg PO DAILY [facility] Last Admin: 07/18/18 09:06 Dose: 10 mg Aspirin (Ecotrin) 81 mg PO DAILY [facility] Last Admin: 07/18/18 09:00 Dose: 81 mg Clopidogrel Bisulfate (Plavix) 75 mg PO DAILY [facility] Last Admin: 07/18/18 09:00 Dose: 75 mg Dextrose (Dextrose 50% Inj) 50 ml IVP ONCE PRN PRN Reason: Hypoglycemia Dextrose (Dextrose 50% Inj) 0 ml IV STAT PRN; Protocol PRN Reason: Hypoglycemia Protocol Dextrose (Glutose 15) 0 gm PO ONCE PRN; Protocol PRN Reason: Hypoglycemia Protocol Enoxaparin Sodium (Lovenox) 60 mg SC Q12 [facility] Last Admin: 07/18/18 09:02 Dose: 60 mg Famotidine (Pepcid) 20 mg PO BID [facility] Last Admin: 07/18/18 18:02 Dose: 20 mg Furosemide (Lasix) 20 mg IVP DAILY [facility] Last Admin: 07/18/18 09:00 Dose: 20 mg Glucagon (Glucagen Diagnostic Kit) 1 mg IM STAT PRN; Protocol PRN Reason: Hypoglycemia Protocol Hydralazine HCl (Apresoline) 10 mg IVP Q6H PRN PRN Reason: Systolic Blood Pressure Dextrose (Dextrose 5% In Water 1000 Ml) 1,000 mls @ 0 mls/hr IV .Q0M PRN; Protocol PRN Reason: Hypoglycemia Protocol Insulin Aspart (Novolog) 0 unit SC ACHS [facility]; Protocol Last Admin: 07/18/18 18:01 Dose: 6 units Multivitamins/Minerals (Therapeutic-M Tab) 1 tab PO DAILY [facility] Last Admin: 07/18/18 09:00 Dose: 1 tab Pneumococcal Polyvalent Vaccine (Pneumovax 23 Vaccine) 0.5 ml IM .ONCE ONE Stop: 07/20/18 10:01 Rosuvastatin Calcium (Crestor) 5 mg PO HS [facility] Last Admin: 07/17/18 22:02 Dose: 5 mg - Labs Labs: 07/18/18 04:32 07/18/18 04:32 PT 11.3 SECONDS (9.7-12.2) 07/16/18 12:58 INR 1.0 07/16/18 12:58 APTT 28 SECONDS (21-34) 07/16/18 12:58
--- NOTE | 2018-07-19 01:36 | CARDCATH ---
PROCEDURE DATE: 07/16/2018 PROCEDURES: 1. Transvenous pacemaker placement. 2. Left heart catheterization and coronary angiogram. 3. Bilateral peripheral angiogram. CLINICAL INDICATIONS: 1. Dyspnea and chest pain. 2. Acute diastolic heart failure. 3. Non-ST elevation myocardial infarction. 4. Coronary artery disease. 5. Complete heart block. 6. Hypertension. 7. Bilateral leg claudication. REFERRING PHYSICIANS: 1. Alonso Suazo DO. 2. Diego Cui MD PERFORMING PHYSICIAN: Basilio Lincoln MD DESCRIPTION OF PROCEDURE: After informed consent, the patient was prepped and draped in the usual sterile fashion. Transvenous pacemaker placement was done through right internal jugular artery. This was done as the patient has a complete heart block. Lidocaine 2% was given in the left groin for local anesthesia. Using micropuncture technique, a 6-American sheath was introduced into left common femoral artery. A JL4 6-American diagnostic catheter was engaged with left main coronary artery. Contrast injected and left coronary angiogram was done. Then, the catheter was exchanged to JR4 6-American diagnostic catheter. This catheter was engaged into left ventricle across the aortic valve. LVEDP was measured. Contrast injected and left ventricular angiogram was done. Then, the catheter was pulled back, engaged into right coronary artery. Contrast injected and coronary angiogram was done. Then, the catheter was pulled back into abdominal aorta. Contrast injected and bilateral lower extremity peripheral angiogram was done. The patient tolerated the procedure well. FINDINGS OF THE LEFT HEART CATHETERIZATION: 1. Left main coronary artery has a 20% distal stenosis. 2. LAD is a small caliber artery, but patent. 3. Ramus has a 30% ostial stenosis. 4. Left circumflex has a ostial 40% stenosis. 5. Right coronary artery is a dominant system. Mid right coronary artery has a 95% stenosis. 6. LV ejection fraction is approximately 70%. No wall motion abnormality noted. EDP is 22. No gradient across the aortic valve. 7. Bilateral peripheral angiogram suggests there is a 85% left iliac artery stenosis. Left common femoral artery is totally occluded. IMPRESSION: 1. The patient presented with complete heart block, transvenous pacemaker placement was done uneventfully. 2. Critical right coronary artery stenosis and mild left coronary artery disease. 3. Significant peripheral artery disease in the left lower extremity. Basilio Lincoln MD
[2018-07-19 05:52] LABS: BASO # 0.1 K/uL (0.0-0.2); BASO % 0.9 % (0.0-2.0); EOS # 0.5 K/uL (0.0-0.7); LYMPH # 1.7 K/uL (1.0-4.3); LYMPH % 24.4 % (20.0-40.0); MEAN CELL VOLUME 80.3 fL (81.0-99.0); MEAN CORPUSCULAR HEMOGLOBIN 26.9 pg (27.0-31.0); MEAN CORPUSCULAR HGB CONC 33.5 g/dL (33.0-37.0); MEAN PLATELET VOLUME 9.6 fL (7.2-11.7); MONO # 0.8 K/uL (0.0-0.8); MONO % 10.7 % (0.0-10.0); RBC 3.35 Mil/uL (3.80-5.20); RED CELL DISTRIBUTION WIDTH 13.8 % (11.5-14.5); WHITE BLOOD COUNT 7.1 K/uL (4.8-10.8)
--- NOTE | 2018-07-19 07:03 | CARD ---
APPROVED REPORT Date of service: 07/16/2018 EXAM: Two-dimensional and M-mode echocardiogram with Doppler and color Doppler. Other Information Quality : TDSRhythm : 2D DIMENSIONS IVSd1.0 (0.7-1.1cm)LVDd3.6 (3.9-5.9cm) PWd0.9 (0.7-1.1cm)LA [id number] (18-58mL) LVDs2.1 (2.5-4.0cm)FS (%) 41.8 % LVEF (%)73.7 (>50%)LVEF (Cisneros's)68.28 % M-Mode DIMENSIONS Left Atrium (MM)3.73 (2.5-4.0cm)IVSd0.65 (0.7-1.1cm) Aortic Root3.04 (2.2-3.7cm)LVDd4.26 (4.0-5.6cm) Aortic Cusp Exc.1.58 (1.5-2.0cm)PWd0.70 (0.7-1.1cm) FS (%) 50 %LVDs2.11 (2.0-3.8cm) LVEF (%)82 (>50%) Aortic Valve AoV Peak Zhacgdir425.5cm/Michelle Peak GR.13mmHg Mitral Valve MV E Rfwmkeml680.2cm/sMV A Imxzpoyj672.1cm/sE/A ratio1.0 TDI Lateral E' Peak V3.64cm/sMedial E' Peak V6.48cm/sE/Lateral E'32.7 E/Medial E'18.4 Tricuspid Valve TR Peak Ybpzcydx004hg/sTR Peak Gr.[id number] LEFT VENTRICLE The left ventricle is normal size. There is normal left ventricular wall thickness. Left ventricle systolic function is normal. The Ejection Fraction is 65-70%. There is normal LV segmental wall motion. The left ventricular diastolic function is normal. RIGHT VENTRICLE The right ventricle is normal size. There is normal right ventricular wall thickness. The right ventricular systolic function is normal. ATRIA The left atrium is moderately dilated. The right atrium size is normal. The interatrial septum is intact with no evidence for an atrial septal defect. AORTIC VALVE The aortic valve is calcified but opens well. No aortic regurgitation is present. There is no aortic valvular stenosis. MITRAL VALVE The mitral valve is normal in structure. There is no evidence of mitral valve prolapse. There is no mitral valve stenosis. Mitral regurgitation is mild. TRICUSPID VALVE The tricuspid valve is normal in structure. There is moderate tricuspid regurgitation. Right ventricular systolic pressure is estimated at greater than 60 mmHg. There is severe pulmonary hypertension. PULMONIC VALVE The pulmonic valve is not well visualized. There is mild pulmonic valvular regurgitation. GREAT VESSELS The aortic root is normal in size. PERICARDIAL EFFUSION There is no significant pericardial effusion. <Conclusion> Left ventricle systolic function is normal. The Ejection Fraction is 65-70%. No aortic regurgitation is present. Mitral regurgitation is mild. There is moderate tricuspid regurgitation. There is severe pulmonary hypertension. There is mild pulmonic valvular regurgitation.
--- NOTE | 2018-07-19 08:20 | CARD ---
APPROVED REPORT Date of service: 07/16/2018 EKG Measurement Heart [id number] <Conclusion> Sinus rhythm with Complete Heart Block with AV dissociation and Wide QRS rhythm Nonspecific intraventricular block Cannot rule out Anteroseptal infarct, age undetermined T wave abnormality, consider lateral ischemia Abnormal ECG
[2018-07-19] MEDS: (Novolog) Insulin Aspart, Recombinant 100 u/ml 10 ml vial SC SCH ×5 (08:25→21:33)
--- NOTE | 2018-07-19 08:41 | CP.PCM.PN ---
Subjective - Date & Time of Evaluation Date of Evaluation: 07/19/18 Time of Evaluation: 08:35 - Subjective Subjective: Hospitalist Note: Patient seen and examined. patient denies acute complaints. Patient pending transfer to [facility] for cath. Objective - Vital Signs/Intake and Output Vital Signs (last 24 hours): Temp Pulse Resp BP Pulse Ox 98.6 F 74 16 120/51 L 100 07/19/18 04:00 07/19/18 07:00 07/19/18 07:00 07/19/18 06:50 07/19/18 07:00 Intake and Output: 07/19/18 07/19/18 06:59 18:59 Intake Total 230 Output Total 800 Balance -570 - Medications Medications: Current Medications Amlodipine Besylate (Norvasc) 10 mg PO DAILY [facility] Last Admin: 07/18/18 09:06 Dose: 10 mg Aspirin (Ecotrin) 81 mg PO DAILY [facility] Last Admin: 07/18/18 09:00 Dose: 81 mg Clopidogrel Bisulfate (Plavix) 75 mg PO DAILY [facility] Last Admin: 07/18/18 09:00 Dose: 75 mg Dextrose (Dextrose 50% Inj) 50 ml IVP ONCE PRN PRN Reason: Hypoglycemia Dextrose (Dextrose 50% Inj) 0 ml IV STAT PRN; Protocol PRN Reason: Hypoglycemia Protocol Dextrose (Glutose 15) 0 gm PO ONCE PRN; Protocol PRN Reason: Hypoglycemia Protocol Enoxaparin Sodium (Lovenox) 60 mg SC Q12 [facility] Last Admin: 07/18/18 23:10 Dose: 60 mg Famotidine (Pepcid) 20 mg PO BID [facility] Last Admin: 07/18/18 18:02 Dose: 20 mg Furosemide (Lasix) 20 mg IVP DAILY [facility] Last Admin: 07/18/18 09:00 Dose: 20 mg Glucagon (Glucagen Diagnostic Kit) 1 mg IM STAT PRN; Protocol PRN Reason: Hypoglycemia Protocol Hydralazine HCl (Apresoline) 10 mg IVP Q6H PRN PRN Reason: Systolic Blood Pressure Dextrose (Dextrose 5% In Water 1000 Ml) 1,000 mls @ 0 mls/hr IV .Q0M PRN; Protocol PRN Reason: Hypoglycemia Protocol Insulin Aspart (Novolog) 0 unit SC ACHS [facility]; Protocol Last Admin: 07/19/18 08:25 Dose: Not Given Multivitamins/Minerals (Therapeutic-M Tab) 1 tab PO DAILY [facility] Last Admin: 07/18/18 09:00 Dose: 1 tab Pneumococcal Polyvalent Vaccine (Pneumovax 23 Vaccine) 0.5 ml IM .ONCE ONE Stop: 07/20/18 10:01 Rosuvastatin Calcium (Crestor) 5 mg PO HS [facility] Last Admin: 07/18/18 23:10 Dose: 5 mg - Labs Labs: 07/19/18 05:39 07/18/18 04:32 PT 11.3 SECONDS (9.7-12.2) 07/16/18 12:58 INR 1.0 07/16/18 12:58 APTT 28 SECONDS (21-34) 07/16/18 12:58 - Constitutional Appears: Non-toxic, No Acute Distress - Head Exam Head Exam: NORMAL INSPECTION - Eye Exam Eye Exam: EOMI - ENT Exam ENT Exam: Mucous Membranes Moist - Respiratory Exam Respiratory Exam: Clear to Ausculation Bilateral, NORMAL BREATHING PATTERN. absent: Rales, Rhonchi, Wheezes - Cardiovascular Exam Cardiovascular Exam: REGULAR RHYTHM, +S1, +S2 - GI/Abdominal Exam GI & Abdominal Exam: Soft, Normal Bowel Sounds. absent: Distended, Firm, Guarding, Rigid, Tenderness, Rebound - Extremities Exam Extremities Exam: absent: Pedal Edema, Tenderness - Neurological Exam Neurological Exam: Alert, Awake, Oriented x3 - Psychiatric Exam Psychiatric exam: Normal Affect, Normal Mood - Skin Skin Exam: Dry, Normal Color, Warm Assessment and Plan (1) Third degree atrioventricular block Status: Acute (2) Hypertension Status: Acute (3) Lipid disorder Status: Acute (4) Diabetes Status: Acute (5) Prophylactic measure Status: Acute Attending/Attestation - Attestation I have personally seen and examined this patient.: Yes I have fully participated in the care of the patient.: Yes I have reviewed all pertinent clinical information, including history, physical exam and plan: Yes Notes (Text): 1. Coronary Artery Disease Complete Heart Block Nonstemi Cardiac Risk Factors: hypertension, diabetes, lipid disorder Assessment/Plan * Cardiology: Dr. Lincoln on case-->help appreciated * Cardiology EPS: Dr. Oliver on the case-->help appreciated * Patient s/p LHC/TVP/Peripheral angiogram on 07/16/18 * PCI for RCA on [facility] 10/8/18 L Main: Distal 20% 2. LAD: Distal diffuse 20% narrowing 3. L Cx: Proximal 40% 4. RCA: Mid 95% 5. EF 80% Severe Left Iliac and SFA disease * Lovenox 60mg subq12 * Norvasc 10mg PO daily * Aspirin 81mg PO daily * Plavix 75mg PO daily * lasix 20mg IV q daily * Kdur 40meq PO daily * Crestor 5mg PoqHS * Off nitro drip: patient is chest pain free at this time * official echocardiogram pending 2. Diabetes Assessment/Plan * Novolog subq ACHS * elevated triglycerides * Hypoglycemic protocol * uncontrolled a1c: 8.2 3. Hypertension Assessment/Plan * Norvasc 10mg PO daily * Aspirin 81mg PO daily * Plavix 75mg PO daily 4) Hypokalemia Assessment/Plan * normalized * Patient is on lasix and kdur supplement * pending for today 5) Leukocytosis Assessment/Plan * Urine culture: no growth * MRSA not detected * 07/16 No growth after 24 hours X2 6) Anemia Assessment/plan * stable in 9s * check iron stores, ferritin, reti count, b12, folate 7) Prophylactic measure Assessment/Plan * Lovenox 60mg subq12 * Pepcid 20mg PO bid Disposition: pending for cardiac cath today at [facility]
[2018-07-19 08:44] LABS: ALBUMIN 3.6 g/dL (3.5-5.0); ALT/SGPT 25 U/L (9-52); AST/SGOT 20 U/L (14-36); BLOOD UREA NITROGEN 12 mg/dL (7-17); CALCIUM 9.3 mg/dl (8.6-10.4); GFR NON-AFRICAN AMERICAN > 60; HDL CHOLESTEROL 47 mg/dL (30-70)
[2018-07-19 08:56] LABS: LDL CHOLESTEROL 76 mg/dL (0-129)
--- NOTE | 2018-07-19 11:20 | CP.PCM.PN ---
Subjective - Date & Time of Evaluation Date of Evaluation: 07/19/18 Time of Evaluation: 11:19 - Subjective Subjective: Patient s/p Successful RCA intervention with [place] OOB to chair after 2pm today Resume diet from lunch\IV hydration Follow Labs CBC, Lytes Notify Dr. Oliver for PPM Objective - Vital Signs/Intake and Output Vital Signs (last 24 hours): Temp Pulse Resp BP Pulse Ox 98.2 F 74 18 163/70 H 100 07/19/18 08:00 07/19/18 09:00 07/19/18 09:00 07/19/18 08:49 07/19/18 09:00 Intake and Output: 07/19/18 07/19/18 06:59 18:59 Intake Total 230 50 Output Total 800 350 Balance -570 -300 - Medications Medications: Current Medications Amlodipine Besylate (Norvasc) 10 mg PO DAILY [facility] Last Admin: 07/19/18 09:02 Dose: 10 mg Aspirin (Ecotrin) 81 mg PO DAILY [facility] Last Admin: 07/19/18 09:02 Dose: 81 mg Clopidogrel Bisulfate (Plavix) 75 mg PO DAILY [facility] Last Admin: 07/19/18 09:02 Dose: 75 mg Enoxaparin Sodium (Lovenox) 60 mg SC Q12 [facility] Last Admin: 07/18/18 23:10 Dose: 60 mg Famotidine (Pepcid) 20 mg PO BID [facility] Last Admin: 07/19/18 09:02 Dose: 20 mg Furosemide (Lasix) 20 mg IVP DAILY [facility] Last Admin: 07/18/18 09:00 Dose: 20 mg Hydralazine HCl (Apresoline) 10 mg IVP Q6H PRN PRN Reason: Systolic Blood Pressure Insulin Aspart (Novolog) 0 unit SC [facility]; Protocol Last Admin: 07/19/18 08:25 Dose: Not Given Multivitamins/Minerals (Therapeutic-M Tab) 1 tab PO DAILY [facility] Last Admin: 07/18/18 09:00 Dose: 1 tab Pneumococcal Polyvalent Vaccine (Pneumovax 23 Vaccine) 0.5 ml IM .ONCE ONE Stop: 07/20/18 10:01 Rosuvastatin Calcium (Crestor) 5 mg PO HS [facility] Last Admin: 07/18/18 23:10 Dose: 5 mg - Labs Labs: 07/19/18 05:39 07/19/18 08:15 PT 11.3 SECONDS (9.7-12.2) 07/16/18 12:58 INR 1.0 07/16/18 12:58 APTT 28 SECONDS (21-34) 07/16/18 12:58
[2018-07-19] MEDS: Enoxaparin 60 mg Syringe SC SCH (12:10)
--- NOTE | 2018-07-19 13:57 | CP.CCUPN ---
CCU Subjective - Physician Review Subjective (Free Text): 07/19/18 14:50 PT SEEN AND EXAMINED AT BEDSIDE, PT PENDING CATH WITH DR GOSS IN [facility]. pt denies any cp sob fc nv today. no complaints overnight rca stent placed CCU Objective - Vital Signs / Intake & Output Intake and Output (Last 8hrs): Intake & Output 07/18/18 07/19/18 07/19/18 22:59 06:59 14:59 Intake Total 320 60 50 Output Total 700 300 350 Balance -380 -240 -300 Weight 111 lb 3.2 oz Intake: Intake, IV Amount 0 Right IJ Cordis 0 Oral 320 60 50 Output: Urine 700 300 350 Urine, Voided 700 300 350 Other: # Voids Urine, Voided 0 0 0 # Bowel Movements 0 - Physical Exam Head: Positive for: Atraumatic, Normocephalic Pupils: Positive for: PERRL Extroacular Muscles: Positive for: EOMI Conjunctiva: Positive for: Normal Mouth: Positive for: Moist Mucous Membranes Respiratory/Chest: Positive for: Clear to Auscultation, Good Air Exchange Cardiovascular: Positive for: Regular Rate and Rhythm Abdomen: Positive for: Normal Bowel Sounds. Negative for: Tenderness, Distention Upper Extremity: Positive for: Normal Inspection Lower Extremity: Positive for: Normal Inspection Neurological: Positive for: GCS=15, Speech Normal Psychiatric: Positive for: Alert, Oriented x 3 Other physical findings (Free Text): Head: Positive for: Atraumatic, Normocephalic Pupils: Positive for: PERRL Extroacular Muscles: Positive for: EOMI Conjunctiva: Positive for: Normal Mouth: Positive for: Moist Mucous Membranes Respiratory/Chest: Positive for: Clear to Auscultation, Good Air Exchange Cardiovascular: Positive for: Regular Rate and Rhythm Abdomen: Positive for: Normal Bowel Sounds. Negative for: Tenderness, Distention Upper Extremity: Positive for: Normal Inspection Lower Extremity: Positive for: Normal Inspection Neurological: Positive for: GCS=15, Speech Normal Psychiatric: Positive for: Alert, Oriented x 3 - Medications Active Medications: Active Medications Generic Name Dose Route Start Last Admin Trade Name Freq PRN Reason Stop Dose Admin Amlodipine Besylate 10 mg 07/17/18 10:00 07/19/18 09:02 Norvasc PO 10 mg DAILY [facility] Administration Aspirin 81 mg 07/17/18 10:00 07/19/18 09:02 Ecotrin PO 81 mg DAILY [facility] Administration Clopidogrel Bisulfate 75 mg 07/17/18 10:00 07/19/18 09:02 Plavix PO 75 mg DAILY [facility] Administration Enoxaparin Sodium 40 mg 07/20/18 10:00 Lovenox SC DAILY [facility] Famotidine 20 mg 07/16/18 22:30 07/19/18 09:02 Pepcid PO 20 mg BID [facility] Administration Furosemide 20 mg 07/17/18 23:00 07/18/18 09:00 Lasix IVP 20 mg DAILY [facility] Administration Hydralazine HCl 10 mg 07/17/18 00:38 Apresoline IVP Q6H PRN Systolic Blood Pressure Insulin Aspart 0 unit 07/17/18 18:00 07/19/18 08:25 Novolog SC Not Given ACHS [facility] Protocol Multivitamins/Minerals 1 tab 07/17/18 10:00 07/18/18 09:00 Therapeutic-M Tab PO 1 tab DAILY [facility] Administration Pneumococcal Polyvalent Vaccine 0.5 ml 07/20/18 10:00 Pneumovax 23 Vaccine IM 07/20/18 10:01 .ONCE ONE Rosuvastatin Calcium 5 mg 07/16/18 22:00 07/18/18 23:10 Crestor PO 5 mg HS [facility] Administration - Patient Studies Lab Studies: Microbiology Studies 07/16/18 16:47 Blood Culture - Preliminary Blood-Venous NO GROWTH AFTER 48 HOURS 07/16/18 16:47 Blood Culture - Preliminary Blood-Venous NO GROWTH AFTER 48 HOURS Lab Studies 07/19/18 07/19/18 07/19/18 Range/Units 08:15 08:15 07:27 WBC (4.8-10.8) K/uL RBC (3.80-5.20) Mil/uL Hgb (11.0-16.0) g/dL Hct (34.0-47.0) % MCV (81.0-99.0) fL MCH (27.0-31.0) pg MCHC (33.0-37.0) g/dL RDW (11.5-14.5) % Plt Count (130-400) K/uL MPV (7.2-11.7) fL Neut % (Auto) (50.0-75.0) % Lymph % (Auto) (20.0-40.0) % [place] % (Auto) (0.0-10.0) % Eos % (Auto) (0.0-4.0) % Baso % (Auto) (0.0-2.0) % Neut # (Auto) (1.8-7.0) K/uL Lymph # (Auto) (1.0-4.3) K/uL [place] # (Auto) (0.0-0.8) K/uL Eos # (Auto) (0.0-0.7) K/uL Baso # (Auto) (0.0-0.2) K/uL Sodium 137 (132-148) mmol/L Potassium 4.7 (3.6-5.2) mmol/L Chloride 101 (98-107) mmol/L Carbon Dioxide 25 (22-30) mmol/L Anion Gap 16 (10-20) BUN 12 (7-17) mg/dL Creatinine 0.6 L (0.7-1.2) mg/dL Est GFR ( Amer) > 60 Est GFR (Non-Af Amer) > 60 POC Glucose (mg/dL) 230 H (65-110) mg/dL Random Glucose 238 H (65-105) mg/dL Hemoglobin A1c 8.2 H (4.2-6.5) % Calcium 9.3 (8.6-10.4) mg/dl Phosphorus 3.6 (2.5-4.5) mg/dL Magnesium 1.9 (1.6-2.3) mg/dL Total Bilirubin 0.6 (0.2-1.3) mg/dL AST 20 (14-36) U/L ALT 25 (9-52) U/L Alkaline Phosphatase 83 (38-126) U/L Total Protein 7.4 (6.3-8.3) g/dL Albumin 3.6 (3.5-5.0) g/dL Globulin 3.8 (2.2-3.9) gm/dL Albumin/Globulin Ratio 1.0 (1.0-2.1) Triglycerides 184 H (0-149) mg/dL Cholesterol 155 (0-199) mg/dL LDL Cholesterol Direct 76 (0-129) mg/dL HDL Cholesterol 47 (30-70) mg/dL 07/19/18 07/19/18 07/18/18 Range/Units 05:39 00:28 19:36 WBC 7.1 (4.8-10.8) K/uL RBC 3.35 L (3.80-5.20) Mil/uL Hgb 9.0 L (11.0-16.0) g/dL Hct 26.9 L (34.0-47.0) % MCV 80.3 L (81.0-99.0) fL MCH 26.9 L (27.0-31.0) pg MCHC 33.5 (33.0-37.0) g/dL RDW 13.8 (11.5-14.5) % Plt Count 167 (130-400) K/uL MPV 9.6 (7.2-11.7) fL Neut % (Auto) 57.0 (50.0-75.0) % Lymph % (Auto) 24.4 (20.0-40.0) % [place] % (Auto) 10.7 H (0.0-10.0) % Eos % (Auto) 7.0 H (0.0-4.0) % Baso % (Auto) 0.9 (0.0-2.0) % Neut # (Auto) 4.0 (1.8-7.0) K/uL Lymph # (Auto) 1.7 (1.0-4.3) K/uL [place] # (Auto) 0.8 (0.0-0.8) K/uL Eos # (Auto) 0.5 (0.0-0.7) K/uL Baso # (Auto) 0.1 (0.0-0.2) K/uL Sodium (132-148) mmol/L Potassium (3.6-5.2) mmol/L Chloride (98-107) mmol/L Carbon Dioxide (22-30) mmol/L Anion Gap (10-20) BUN (7-17) mg/dL Creatinine (0.7-1.2) mg/dL Est GFR ( Amer) Est GFR (Non-Af Amer) POC Glucose (mg/dL) 214 H 273 H (65-110) mg/dL Random Glucose (65-105) mg/dL Hemoglobin A1c (4.2-6.5) % Calcium (8.6-10.4) mg/dl Phosphorus (2.5-4.5) mg/dL Magnesium (1.6-2.3) mg/dL Total Bilirubin (0.2-1.3) mg/dL AST (14-36) U/L ALT (9-52) U/L Alkaline Phosphatase (38-126) U/L Total Protein (6.3-8.3) g/dL Albumin (3.5-5.0) g/dL Globulin (2.2-3.9) gm/dL Albumin/Globulin Ratio (1.0-2.1) Triglycerides (0-149) mg/dL Cholesterol (0-199) mg/dL LDL Cholesterol Direct (0-129) mg/dL HDL Cholesterol (30-70) mg/dL 07/18/18 Range/Units 16:24 WBC (4.8-10.8) K/uL RBC (3.80-5.20) Mil/uL Hgb (11.0-16.0) g/dL Hct (34.0-47.0) % MCV (81.0-99.0) fL MCH (27.0-31.0) pg MCHC (33.0-37.0) g/dL RDW (11.5-14.5) % Plt Count (130-400) K/uL MPV (7.2-11.7) fL Neut % (Auto) (50.0-75.0) % Lymph % (Auto) (20.0-40.0) % [place] % (Auto) (0.0-10.0) % Eos % (Auto) (0.0-4.0) % Baso % (Auto) (0.0-2.0) % Neut # (Auto) (1.8-7.0) K/uL Lymph # (Auto) (1.0-4.3) K/uL [place] # (Auto) (0.0-0.8) K/uL Eos # (Auto) (0.0-0.7) K/uL Baso # (Auto) (0.0-0.2) K/uL Sodium (132-148) mmol/L Potassium (3.6-5.2) mmol/L Chloride (98-107) mmol/L Carbon Dioxide (22-30) mmol/L Anion Gap (10-20) BUN (7-17) mg/dL Creatinine (0.7-1.2) mg/dL Est GFR ( Amer) Est GFR (Non-Af Amer) POC Glucose (mg/dL) 276 H (65-110) mg/dL Random Glucose (65-105) mg/dL Hemoglobin A1c (4.2-6.5) % Calcium (8.6-10.4) mg/dl Phosphorus (2.5-4.5) mg/dL Magnesium (1.6-2.3) mg/dL Total Bilirubin (0.2-1.3) mg/dL AST (14-36) U/L ALT (9-52) U/L Alkaline Phosphatase (38-126) U/L Total Protein (6.3-8.3) g/dL Albumin (3.5-5.0) g/dL Globulin (2.2-3.9) gm/dL Albumin/Globulin Ratio (1.0-2.1) Triglycerides (0-149) mg/dL Cholesterol (0-199) mg/dL LDL Cholesterol Direct (0-129) mg/dL HDL Cholesterol (30-70) mg/dL Laboratory Results - last 24 hr 07/18/18 07/18/18 07/19/18 16:24 19:36 00:28 WBC RBC Hgb Hct MCV MCH MCHC RDW Plt Count MPV Neut % (Auto) Lymph % (Auto) [place] % (Auto) Eos % (Auto) Baso % (Auto) Neut # (Auto) Lymph # (Auto) [place] # (Auto) Eos # (Auto) Baso # (Auto) Sodium Potassium Chloride Carbon Dioxide Anion Gap BUN Creatinine Est GFR ( Amer) Est GFR (Non-Af Amer) POC Glucose (mg/dL) 276 H 273 H 214 H Random Glucose Hemoglobin A1c Calcium Phosphorus Magnesium Total Bilirubin AST ALT Alkaline Phosphatase Total Protein Albumin Globulin Albumin/Globulin Ratio Triglycerides Cholesterol LDL Cholesterol Direct HDL Cholesterol 07/19/18 07/19/18 07/19/18 05:39 07:27 08:15 WBC 7.1 RBC 3.35 L Hgb 9.0 L Hct 26.9 L MCV 80.3 L MCH 26.9 L MCHC 33.5 RDW 13.8 Plt Count 167 MPV 9.6 Neut % (Auto) 57.0 Lymph % (Auto) 24.4 [place] % (Auto) 10.7 H Eos % (Auto) 7.0 H Baso % (Auto) 0.9 Neut # (Auto) 4.0 Lymph # (Auto) 1.7 [place] # (Auto) 0.8 Eos # (Auto) 0.5 Baso # (Auto) 0.1 Sodium 137 Potassium 4.7 Chloride 101 Carbon Dioxide 25 Anion Gap 16 BUN 12 Creatinine 0.6 L Est GFR ( Amer) > 60 Est GFR (Non-Af Amer) > 60 POC Glucose (mg/dL) 230 H Random Glucose 238 H Hemoglobin A1c Calcium 9.3 Phosphorus 3.6 Magnesium 1.9 Total Bilirubin 0.6 AST 20 ALT 25 Alkaline Phosphatase 83 Total Protein 7.4 Albumin 3.6 Globulin 3.8 Albumin/Globulin Ratio 1.0 Triglycerides 184 H Cholesterol 155 LDL Cholesterol Direct 76 HDL Cholesterol 47 07/19/18 08:15 WBC RBC Hgb Hct MCV MCH MCHC RDW Plt Count MPV Neut % (Auto) Lymph % (Auto) [place] % (Auto) Eos % (Auto) Baso % (Auto) Neut # (Auto) Lymph # (Auto) [place] # (Auto) Eos # (Auto) Baso # (Auto) Sodium Potassium Chloride Carbon Dioxide Anion Gap BUN Creatinine Est GFR ( Amer) Est GFR (Non-Af Amer) POC Glucose (mg/dL) Random Glucose Hemoglobin A1c 8.2 H Calcium Phosphorus Magnesium Total Bilirubin AST ALT Alkaline Phosphatase Total Protein Albumin Globulin Albumin/Globulin Ratio Triglycerides Cholesterol LDL Cholesterol Direct HDL Cholesterol Fingerstick Blood Sugar Results: 273 Review of Systems - Review of Systems All systems: reviewed and no additional remarkable complaints except Review of Systems: as per HPI Critical Care Progress Note - Nutrition Nutrition: Nutrition Category Date Time Status Heart Healthy Diet [DIET] Diets 07/19/18 Lunch Active Assessment/Plan - Assessment and Plan (Free Text) Assessment: Patient is a 82 year old male with past medical history of HTN, T2DM, HLD found to have 3rd degree heart block. Peding EP (Dr Oliver) and Cardio (Dr Goss) recs PLAN Neuro: - AAO x3 Pulm: - CXR shows patchy airspace disease in lower lobes, worse in LLL. Possible CHF, pneumonia. - on BIPAP - maintain SPO2 > 92% - Duonebs 3 ml INH RQ6 CV: underwent diagnostic cardiac cath, found 95% occlusion of RCA. Stent today with Dr Goss. Then will have PPM placement. Currently has temporary IV pacer in place, pacing appropriately. Dr oliver consulted, f/u recs: will consider intervention GI: - Pepcid 20mg PO daily heart healthy diet Renal: - monitor I and O ID: - afebrile, no leuk Heme/Onc - monitor H/H -given calcium gluconate in ED Endo: - maintain euglycemia - ISS high dose protocol - Accuchecks Q6H PPX: Pepcid 20 mg PO daily, Lovenox 30 mg SC daily
[2018-07-19] MEDS: Multivitamin With Minerals Tab PO SCH (16:24)
[2018-07-19] MEDS ORDERED: Labetalol 25mg/5ml Syringe IVP SCH (17:00)
[2018-07-19 17:18] LABS: IRON 49 ug/dL (37-170)
[2018-07-19 17:27] LABS: % IRON SATURATION 13 (20-55); TOTAL IRON BINDING CAPACITY 368 ug/dL (250-450)
[2018-07-19 17:54] LABS: FERRITIN 41.1 ng/mL
[2018-07-19 18:25] LABS: FOLATE > 20.0 ng/mL
[2018-07-19] MEDS ORDERED: Ferric Sodium Gluconat Complex 125 MG in Sodium Chloride 0.9% 100 ML IVPB SCH (22:00)
[2018-07-20 05:56] LABS: BASO # 0.1 K/uL (0.0-0.2); BASO % 0.6 % (0.0-2.0); EOS # 0.6 K/uL (0.0-0.7); EOS % 7.4 % (0.0-4.0); HEMOGLOBIN 8.4 g/dL (11.0-16.0); LYMPH # 1.4 K/uL (1.0-4.3); LYMPH % 17.6 % (20.0-40.0); MEAN CORPUSCULAR HEMOGLOBIN 27.1 pg (27.0-31.0); MEAN CORPUSCULAR HGB CONC 33.9 g/dL (33.0-37.0); MEAN PLATELET VOLUME 9.1 fL (7.2-11.7); MONO # 0.9 K/uL (0.0-0.8); MONO % 11.4 % (0.0-10.0); NEUT # 5.1 K/uL (1.8-7.0); RBC 3.11 Mil/uL (3.80-5.20); RED CELL DISTRIBUTION WIDTH 13.1 % (11.5-14.5)
[2018-07-20 06:23] LABS: ALB/GLOB RATIO 1.1 (1.0-2.1); ALBUMIN 3.3 g/dL (3.5-5.0); ALT/SGPT 21 U/L (9-52); AST/SGOT 13 U/L (14-36); BLOOD UREA NITROGEN 12 mg/dL (7-17); CALCIUM 8.4 mg/dl (8.6-10.4); GFR NON-AFRICAN AMERICAN > 60
[2018-07-20] MEDS: (Novolog) Insulin Aspart, Recombinant 100 u/ml 10 ml vial SC SCH ×4 (07:49→21:43)
--- NOTE | 2018-07-20 08:50 | CP.PCM.PN ---
Subjective - Date & Time of Evaluation Date of Evaluation: 07/20/18 Time of Evaluation: 08:45 - Subjective Subjective: Medical Attending Note Patient seen and examined at bedside. Patient reports she is doing well. Patient denies chest pain, denies trouble breathing, denies abdominal pain, reports she has urinated and pooped post cath. We are awaiting pacemaker placement with EP. Objective - Vital Signs/Intake and Output Vital Signs (last 24 hours): Temp Pulse Resp BP Pulse Ox 98 F 75 18 140/61 100 07/20/18 04:00 07/20/18 06:00 07/20/18 06:00 07/20/18 05:09 07/20/18 06:00 Intake and Output: 07/20/18 07/20/18 06:59 18:59 Intake Total 350 Output Total 750 Balance -400 - Medications Medications: Current Medications Amlodipine Besylate (Norvasc) 10 mg PO DAILY [facility] Last Admin: 07/19/18 09:02 Dose: 10 mg Aspirin (Ecotrin) 81 mg PO DAILY [facility] Last Admin: 07/19/18 09:02 Dose: 81 mg Clopidogrel Bisulfate (Plavix) 75 mg PO DAILY [facility] Last Admin: 07/19/18 09:02 Dose: 75 mg Enoxaparin Sodium (Lovenox) 40 mg SC DAILY [facility] Famotidine (Pepcid) 20 mg PO BID [facility] Last Admin: 07/19/18 17:53 Dose: 20 mg Furosemide (Lasix) 20 mg IVP DAILY [facility] Last Admin: 07/19/18 16:24 Dose: 20 mg Hydralazine HCl (Apresoline) 10 mg IVP Q6H PRN PRN Reason: Systolic Blood Pressure Ferric Sodium Gluconate Complex 125 mg/ Sodium Chloride 110 mls @ 110 mls/hr IVPB Q24H [facility] Stop: 07/28/18 10:01 Insulin Aspart (Novolog) 0 unit SC ACHS [facility]; Protocol Last Admin: 07/20/18 07:49 Dose: 4 units Multivitamins/Minerals (Therapeutic-M Tab) 1 tab PO DAILY [facility] Last Admin: 07/19/18 16:24 Dose: 1 tab Pneumococcal Polyvalent Vaccine (Pneumovax 23 Vaccine) 0.5 ml IM .ONCE ONE Stop: 07/20/18 10:01 Rosuvastatin Calcium (Crestor) 5 mg PO HS [facility] Last Admin: 07/19/18 21:39 Dose: 5 mg - Labs Labs: 07/20/18 05:48 07/20/18 05:49 PT 11.3 SECONDS (9.7-12.2) 07/16/18 12:58 INR 1.0 07/16/18 12:58 APTT 28 SECONDS (21-34) 07/16/18 12:58 - Constitutional Appears: Non-toxic, No Acute Distress - Head Exam Head Exam: NORMAL INSPECTION Additional comments: dressing over side of neck - Eye Exam Eye Exam: EOMI - Respiratory Exam Respiratory Exam: Clear to Ausculation Bilateral, NORMAL BREATHING PATTERN. absent: Rales, Rhonchi, Wheezes - Cardiovascular Exam Cardiovascular Exam: REGULAR RHYTHM, +S1, +S2 - GI/Abdominal Exam GI & Abdominal Exam: Soft, Normal Bowel Sounds. absent: Distended, Firm, Guarding, Rigid, Tenderness, Rebound - Extremities Exam Extremities Exam: absent: Pedal Edema, Tenderness - Neurological Exam Neurological Exam: Alert, Awake, Oriented x3 - Psychiatric Exam Psychiatric exam: Normal Affect, Normal Mood - Skin Skin Exam: Dry, Normal Color, Warm Assessment and Plan (1) Third degree atrioventricular block Status: Acute (2) Hypertension Status: Acute (3) Lipid disorder Status: Acute (4) Diabetes Status: Acute (5) Anemia Status: Chronic (6) Prophylactic measure Status: Acute Attending/Attestation - Attestation I have personally seen and examined this patient.: Yes I have fully participated in the care of the patient.: Yes I have reviewed all pertinent clinical information, including history, physical exam and plan: Yes Notes (Text): 1. Coronary Artery Disease Complete Heart Block Nonstemi Cardiac Risk Factors: hypertension, diabetes, lipid disorder Assessment/Plan * Cardiology: Dr. Lincoln on case-->help appreciated * Cardiology EPS: Dr. Oliver on the case-->help appreciated * Patient s/p LHC/TVP/Peripheral angiogram on 07/16/18 * s/p PCI for RCA stent on Thursday07/19/18 L Main: Distal 20% 2. LAD: Distal diffuse 20% narrowing 3. L Cx: Proximal 40% 4. RCA: Mid 95% 5. EF 80% Severe Left Iliac and SFA disease * Lovenox 60mg subq12 * Norvasc 10mg PO daily * Aspirin 81mg PO daily * Plavix 75mg PO daily * lasix 20mg IV q daily * Kdur 40meq PO daily * Crestor 5mg PoqHS * Echocardiogram: left ventricle systolic function is normal ejection fraction is 65-70%, no arotic regurgitation is present. mitral regurgitation is mild. moderate tricupsid regurgitation. severe pulmonary hypertension. mild pulmonic valvular regurgitation 2. Diabetes Assessment/Plan * Novolog subq ACHS * elevated triglycerides * Hypoglycemic protocol * uncontrolled a1c: 8.2 3. Hypertension Assessment/Plan * Norvasc 10mg PO daily * Aspirin 81mg PO daily * Plavix 75mg PO daily 4) Hypokalemia Assessment/Plan * normalized * Patient is on lasix and kdur supplement * pending for today 5) Leukocytosis Assessment/Plan * Urine culture: no growth * MRSA not detected * 07/16 No growth after 3 days X2 6) Anemia Assessment/plan * stable in 9s * iron normal, TIBC 368, percent iron:9, ferritin: 41.1, folate: >20, B12: 446, reticulocyte count: 2.1 * reticulocyte index 1.3 indicates hypoproliferation * Start Ferrlecet today 7) Prophylactic measure Assessment/Plan * Lovenox 40mg subq daily * Pepcid 20mg PO bid Disposition: pending for PPM placement by EP cardiology.
[2018-07-20] MEDS ORDERED: Ferric Sodium Gluconat Complex 62.5 mg/5 ml Vial ONE (09:18)
[2018-07-20] MEDS: Multivitamin With Minerals Tab PO SCH (09:25)
[2018-07-20] MEDS: Ferric Sodium Gluconat Complex 125 MG in Sodium Chloride 0.9% 100 ML IVPB SCH (09:27)
[2018-07-20] MEDS ORDERED: Enoxaparin 40 mg Syringe SC SCH (10:00)
[2018-07-20] MEDS ORDERED: Ferric Sodium Gluconat Complex 62.5 mg/5 ml Vial IVPB SCH (10:00)
[2018-07-20] MEDS ORDERED: Pneumococcal 23-Valent Vaccine IM ONE (10:00)
[2018-07-20] MEDS ORDERED: Lidocaine 2% PF (10 ml) Amp ONE (15:47)
[2018-07-20] MEDS ORDERED: Thrombin Topical 5,000 Int Units Spray Kit TOP ONE (16:00)
[2018-07-20] MEDS ORDERED: ceFAZolin 1 gm FROZEN Premix 1 GM/50 ML ML IVPB ONE (16:03)
--- NOTE | 2018-07-20 17:36 | PCM.OP ---
Operative Report - Operative Report Date of Surgery/Procedure: 07/20/18 Time of Surgery/Procedure: 17:29 Surgeon: meri Anesthesia/Sedation: MAC Pre-Operative Diagnosis: complete heart block Post-Operative Diagnosis: complete heart block Indication for Surgery: complete heart block Operative Findings: Ms. Manjarrez has a chest pain syndrome and a complete AV block. Given the multiple vascular risk factors and LBBB concealing electrocardiographic tell tale evidence of active coronary disease and plausible ischemic conduction disease would consider cardiac catheterization (please consult dr. corley) and thyroid function. Cardiac cath showed obstructive disease and underwent a stent placement. due to persistence of AV block a permanent pacemaker implant was planned Procedure/Operation Description: After informed consent she was brought to the lab in a post absorptive state. The left pectoral region was prepped and draped in the usual fashion; she was administred a gram of cefazolin intravenously. Next after local anesthesia the left axillary vein was accessed twice and guide wires were placed. Next a 3 cm incision was made 2 cm inferior to the left clavicle; next a pocket was created; next the guidewires were internalized in the pocket and via two six portuguese sheaths a 52 cm and a 45 cm lead were placed i n the right ventricular apex and the right atrial appendage respectively. The pacing threshold in the atrium was 1.5V and the sensed P wave was 2mV; the pacing threshold in the ventricle was 0.5V @ 0.5ms pulse width and the sensed R wave was 15mV. Next the leads were secured over the pectoral muscle; a new ICD generator (st Waqar) was introduced in the field and connected to the leads; the pocket was flushed with antibiotics and thrombin; hemostasis was secured. The pocket was closed in layers; dermabond and telfa dressing were applied. She was sent to the CCU in a stable condition with orders for a stat chest X-ray, cefazolin 1 gm every 8 hours x three doses, arm sling Estimated Blood Loss: 2cc Complications: None Discharge & Condition: stable
--- NOTE | 2018-07-20 18:09 | CP.CCUPN ---
<Alberto Pretty - Last Filed: 07/20/18 18:19> CCU Objective - Vital Signs / Intake & Output Vital Signs (Last 4 hours): Vital Signs Pulse Resp BP 07/20/18 15:10 149/74 07/20/18 15:08 75 26 H 07/20/18 15:00 75 20 Intake and Output (Last 8hrs): Intake & Output 07/20/18 07/20/18 07/20/18 06:59 14:59 22:59 Intake Total 100 350 Output Total 400 500 Balance -300 -150 Weight 117 lb 7 oz Intake: Intake, IV Amount 110 Left Hand 110 Oral 100 240 Output: Urine 400 500 Urine, Voided 400 500 Other: # Voids Urine, Voided 0 # Bowel Movements 1 - Medications Active Medications: Active Medications Generic Name Dose Route Start Last Admin Trade Name Freq PRN Reason Stop Dose Admin Amlodipine Besylate 10 mg 07/17/18 10:00 07/20/18 09:33 Norvasc PO 10 mg DAILY COOPER Administration Aspirin 81 mg 07/17/18 10:00 07/20/18 09:25 Ecotrin PO 81 mg DAILY COOPER Administration Clopidogrel Bisulfate 75 mg 07/17/18 10:00 07/20/18 09:25 Plavix PO 75 mg DAILY COOPER Administration Enoxaparin Sodium 40 mg 07/20/18 10:00 Lovenox SC DAILY COOPER Famotidine 20 mg 07/16/18 22:30 07/20/18 17:57 Pepcid PO 20 mg BID COOPER Administration Furosemide 20 mg 07/17/18 23:00 07/20/18 09:25 Lasix IVP 20 mg DAILY COOPER Administration Hydralazine HCl 10 mg 07/17/18 00:38 Apresoline IVP Q6H PRN Systolic Blood Pressure Ferric Sodium Gluconate 110 mls @ 110 mls/hr 07/20/18 10:00 07/20/18 09:27 Complex 125 mg/ Sodium IVPB 07/28/18 10:01 110 mls/hr Chloride Q24H COOPER Administration Insulin Aspart 0 unit 07/17/18 18:00 07/20/18 17:56 Novolog SC 8 units ACHS COOPER Administration Protocol Multivitamins/Minerals 1 tab 07/17/18 10:00 07/20/18 09:25 Therapeutic-M Tab PO 1 tab DAILY COOPER Administration Rosuvastatin Calcium 5 mg 07/16/18 22:00 07/19/18 21:39 Crestor PO 5 mg HS COOPER Administration - Patient Studies Lab Studies: Microbiology Studies 07/16/18 16:47 Blood Culture - Preliminary Blood-Venous NO GROWTH AFTER 4 DAYS 07/16/18 16:47 Blood Culture - Preliminary Blood-Venous NO GROWTH AFTER 4 DAYS Lab Studies 07/20/18 07/20/18 07/20/18 Range/Units 17:40 11:08 07:38 WBC (4.8-10.8) K/uL RBC (3.80-5.20) Mil/uL Hgb (11.0-16.0) g/dL Hct (34.0-47.0) % MCV (81.0-99.0) fL MCH (27.0-31.0) pg MCHC (33.0-37.0) g/dL RDW (11.5-14.5) % Plt Count (130-400) K/uL MPV (7.2-11.7) fL Neut % (Auto) (50.0-75.0) % Lymph % (Auto) (20.0-40.0) % Wirt % (Auto) (0.0-10.0) % Eos % (Auto) (0.0-4.0) % Baso % (Auto) (0.0-2.0) % Neut # (Auto) (1.8-7.0) K/uL Lymph # (Auto) (1.0-4.3) K/uL Wirt # (Auto) (0.0-0.8) K/uL Eos # (Auto) (0.0-0.7) K/uL Baso # (Auto) (0.0-0.2) K/uL Sodium (132-148) mmol/L Potassium (3.6-5.2) mmol/L Chloride (98-107) mmol/L Carbon Dioxide (22-30) mmol/L Anion Gap (10-20) BUN (7-17) mg/dL Creatinine (0.7-1.2) mg/dL Est GFR ( Amer) Est GFR (Non-Af Amer) POC Glucose (mg/dL) 305 H 392 H 229 H (65-110) mg/dL Random Glucose (65-105) mg/dL Calcium (8.6-10.4) mg/dl Phosphorus (2.5-4.5) mg/dL Magnesium (1.6-2.3) mg/dL Total Bilirubin (0.2-1.3) mg/dL AST (14-36) U/L ALT (9-52) U/L Alkaline Phosphatase (38-126) U/L Total Creatine Kinase (29-143) U/L Total Protein (6.3-8.3) g/dL Albumin (3.5-5.0) g/dL Globulin (2.2-3.9) gm/dL Albumin/Globulin Ratio (1.0-2.1) Vitamin B12 (239-931) pg/mL Folate ng/mL 07/20/18 07/20/18 07/20/18 Range/Units 05:49 05:48 00:29 WBC 8.0 (4.8-10.8) K/uL RBC 3.11 L (3.80-5.20) Mil/uL Hgb 8.4 L (11.0-16.0) g/dL Hct 24.8 L (34.0-47.0) % MCV 80.0 L (81.0-99.0) fL MCH 27.1 (27.0-31.0) pg MCHC 33.9 (33.0-37.0) g/dL RDW 13.1 (11.5-14.5) % Plt Count 189 (130-400) K/uL MPV 9.1 (7.2-11.7) fL Neut % (Auto) 63.0 (50.0-75.0) % Lymph % (Auto) 17.6 L (20.0-40.0) % Wirt % (Auto) 11.4 H (0.0-10.0) % Eos % (Auto) 7.4 H (0.0-4.0) % Baso % (Auto) 0.6 (0.0-2.0) % Neut # (Auto) 5.1 (1.8-7.0) K/uL Lymph # (Auto) 1.4 (1.0-4.3) K/uL Wirt # (Auto) 0.9 H (0.0-0.8) K/uL Eos # (Auto) 0.6 (0.0-0.7) K/uL Baso # (Auto) 0.1 (0.0-0.2) K/uL Sodium 134 (132-148) mmol/L Potassium 4.2 (3.6-5.2) mmol/L Chloride 100 (98-107) mmol/L Carbon Dioxide 21 L (22-30) mmol/L Anion Gap 17 (10-20) BUN 12 (7-17) mg/dL Creatinine 0.5 L (0.7-1.2) mg/dL Est GFR ( Amer) > 60 Est GFR (Non-Af Amer) > 60 POC Glucose (mg/dL) 287 H (65-110) mg/dL Random Glucose 225 H (65-105) mg/dL Calcium 8.4 L (8.6-10.4) mg/dl Phosphorus 4.3 (2.5-4.5) mg/dL Magnesium 1.6 (1.6-2.3) mg/dL Total Bilirubin 0.5 (0.2-1.3) mg/dL AST 13 L D (14-36) U/L ALT 21 (9-52) U/L Alkaline Phosphatase 64 (38-126) U/L Total Creatine Kinase (29-143) U/L Total Protein 6.4 (6.3-8.3) g/dL Albumin 3.3 L (3.5-5.0) g/dL Globulin 3.1 (2.2-3.9) gm/dL Albumin/Globulin Ratio 1.1 (1.0-2.1) Vitamin B12 (239-931) pg/mL Folate ng/mL 07/19/18 07/19/18 07/17/18 Range/Units 20:16 16:53 07:50 WBC (4.8-10.8) K/uL RBC (3.80-5.20) Mil/uL Hgb (11.0-16.0) g/dL Hct (34.0-47.0) % MCV (81.0-99.0) fL MCH (27.0-31.0) pg MCHC (33.0-37.0) g/dL RDW (11.5-14.5) % Plt Count (130-400) K/uL MPV (7.2-11.7) fL Neut % (Auto) (50.0-75.0) % Lymph % (Auto) (20.0-40.0) % Wirt % (Auto) (0.0-10.0) % Eos % (Auto) (0.0-4.0) % Baso % (Auto) (0.0-2.0) % Neut # (Auto) (1.8-7.0) K/uL Lymph # (Auto) (1.0-4.3) K/uL Wirt # (Auto) (0.0-0.8) K/uL Eos # (Auto) (0.0-0.7) K/uL Baso # (Auto) (0.0-0.2) K/uL Sodium (132-148) mmol/L Potassium (3.6-5.2) mmol/L Chloride (98-107) mmol/L Carbon Dioxide (22-30) mmol/L Anion Gap (10-20) BUN (7-17) mg/dL Creatinine (0.7-1.2) mg/dL Est GFR ( Amer) Est GFR (Non-Af Amer) POC Glucose (mg/dL) 274 H (65-110) mg/dL Random Glucose (65-105) mg/dL Calcium (8.6-10.4) mg/dl Phosphorus (2.5-4.5) mg/dL Magnesium (1.6-2.3) mg/dL Total Bilirubin (0.2-1.3) mg/dL AST (14-36) U/L ALT (9-52) U/L Alkaline Phosphatase (38-126) U/L Total Creatine Kinase 72 (29-143) U/L Total Protein (6.3-8.3) g/dL Albumin (3.5-5.0) g/dL Globulin (2.2-3.9) gm/dL Albumin/Globulin Ratio (1.0-2.1) Vitamin B12 446 (239-931) pg/mL Folate > 20.0 ng/mL Laboratory Results - last 24 hr 07/17/18 07/19/18 07/19/18 07:50 16:53 20:16 WBC RBC Hgb Hct MCV MCH MCHC RDW Plt Count MPV Neut % (Auto) Lymph % (Auto) Wirt % (Auto) Eos % (Auto) Baso % (Auto) Neut # (Auto) Lymph # (Auto) Wirt # (Auto) Eos # (Auto) Baso # (Auto) Sodium Potassium Chloride Carbon Dioxide Anion Gap BUN Creatinine Est GFR ( Amer) Est GFR (Non-Af Amer) POC Glucose (mg/dL) 274 H Random Glucose Calcium Phosphorus Magnesium Total Bilirubin AST ALT Alkaline Phosphatase Total Creatine Kinase 72 Total Protein Albumin Globulin Albumin/Globulin Ratio Vitamin B12 446 Folate > 20.0 07/20/18 07/20/18 07/20/18 00:29 05:48 05:49 WBC 8.0 RBC 3.11 L Hgb 8.4 L Hct 24.8 L MCV 80.0 L MCH 27.1 MCHC 33.9 RDW 13.1 Plt Count 189 MPV 9.1 Neut % (Auto) 63.0 Lymph % (Auto) 17.6 L Wirt % (Auto) 11.4 H Eos % (Auto) 7.4 H Baso % (Auto) 0.6 Neut # (Auto) 5.1 Lymph # (Auto) 1.4 Wirt # (Auto) 0.9 H Eos # (Auto) 0.6 Baso # (Auto) 0.1 Sodium 134 Potassium 4.2 Chloride 100 Carbon Dioxide 21 L Anion Gap 17 BUN 12 Creatinine 0.5 L Est GFR ( Amer) > 60 Est GFR (Non-Af Amer) > 60 POC Glucose (mg/dL) 287 H Random Glucose 225 H Calcium 8.4 L Phosphorus 4.3 Magnesium 1.6 Total Bilirubin 0.5 AST 13 L D ALT 21 Alkaline Phosphatase 64 Total Creatine Kinase Total Protein 6.4 Albumin 3.3 L Globulin 3.1 Albumin/Globulin Ratio 1.1 Vitamin B12 Folate 07/20/18 07/20/18 07/20/18 07:38 11:08 17:40 WBC RBC Hgb Hct MCV MCH MCHC RDW Plt Count MPV Neut % (Auto) Lymph % (Auto) Wirt % (Auto) Eos % (Auto) Baso % (Auto) Neut # (Auto) Lymph # (Auto) Wirt # (Auto) Eos # (Auto) Baso # (Auto) Sodium Potassium Chloride Carbon Dioxide Anion Gap BUN Creatinine Est GFR ( Amer) Est GFR (Non-Af Amer) POC Glucose (mg/dL) 229 H 392 H 305 H Random Glucose Calcium Phosphorus Magnesium Total Bilirubin AST ALT Alkaline Phosphatase Total Creatine Kinase Total Protein Albumin Globulin Albumin/Globulin Ratio Vitamin B12 Folate Critical Care Progress Note - Nutrition Nutrition: Nutrition Category Date Time Status Consistent Carbohydrate [DIET] Diets 07/20/18 Dinner Active Assessment/Plan (1) Third degree atrioventricular block Current Visit: Yes Status: Acute Attending/Attestation - Attestation I have personally seen and examined this patient.: Yes I have fully participated in the care of the patient.: Yes I have reviewed all pertinent clinical information: Yes Notes (Text): 07/20/18 18:19 I have seen and examined the patient. Medical records, lab studies, and imaging were reviewed by me and a management plan was formulated on multidisciplinary rounds with resident Dr. Fish. I agree with their documented assessment and plan. Patient awaiting PPM placement. Clinically stable with transvenous pacer in place. Critical Care Time 35 minutes. Multi-disciplinary rounds were performed with house staff, nursing, speech therapy, respiratory therapy, pharmacy and nutrition with integrated input from the primary team/attending and other consulting services. The documented time is cumulative and includes review of patient data/exams/labs/chart review and examination of the patient on rounds and throughout the day; time is exclusive of any procedures or teaching time. 07/20/18 18:19 <Jose Luis Fish - Last Filed: 07/20/18 18:49> CCU Subjective - Physician Review Subjective (Free Text): 07/19/18 14:50 PT SEEN AND EXAMINED AT BEDSIDE, PT PENDING CATH WITH DR LINCOLN IN [facility]. pt denies any cp sob fc nv today. no complaints overnight rca stent placed CCU Objective - Vital Signs / Intake & Output Vital Signs (Last 4 hours): Vital Signs Pulse Resp BP 07/20/18 15:10 149/74 07/20/18 15:08 75 26 H 07/20/18 15:00 75 20 07/20/18 14:11 75 17 158/74 H Intake and Output (Last 8hrs): Intake & Output 07/20/18 07/20/18 07/20/18 06:59 14:59 22:59 Intake Total 100 350 Output Total 400 500 Balance -300 -150 Weight 117 lb 7 oz Intake: Intake, IV Amount 110 Left Hand 110 Oral 100 240 Output: Urine 400 500 Urine, Voided 400 500 Other: # Voids Urine, Voided 0 # Bowel Movements 1 - Physical Exam Head: Positive for: Atraumatic, Normocephalic Pupils: Positive for: PERRL Extroacular Muscles: Positive for: EOMI Conjunctiva: Positive for: Normal Mouth: Positive for: Moist Mucous Membranes Respiratory/Chest: Positive for: Clear to Auscultation, Good Air Exchange Cardiovascular: Positive for: Regular Rate and Rhythm Abdomen: Positive for: Normal Bowel Sounds. Negative for: Tenderness, Distention Upper Extremity: Positive for: Normal Inspection Lower Extremity: Positive for: Normal Inspection Neurological: Positive for: GCS=15, Speech Normal Psychiatric: Positive for: Alert, Oriented x 3 - Medications Active Medications: Active Medications Generic Name Dose Route Start Last Admin Trade Name Freq PRN Reason Stop Dose Admin Amlodipine Besylate 10 mg 07/17/18 10:00 07/20/18 09:33 Norvasc PO 10 mg DAILY COOPER Administration Aspirin 81 mg 07/17/18 10:00 07/20/18 09:25 Ecotrin PO 81 mg DAILY COOPER Administration Clopidogrel Bisulfate 75 mg 07/17/18 10:00 07/20/18 09:25 Plavix PO 75 mg DAILY COOPER Administration Enoxaparin Sodium 40 mg 07/20/18 10:00 Lovenox SC DAILY COOPER Famotidine 20 mg 07/16/18 22:30 07/20/18 17:57 Pepcid PO 20 mg BID COOPER Administration Furosemide 20 mg 07/17/18 23:00 07/20/18 09:25 Lasix IVP 20 mg DAILY COOPER Administration Hydralazine HCl 10 mg 07/17/18 00:38 Apresoline IVP Q6H PRN Systolic Blood Pressure Ferric Sodium Gluconate 110 mls @ 110 mls/hr 07/20/18 10:00 07/20/18 09:27 Complex 125 mg/ Sodium IVPB 07/28/18 10:01 110 mls/hr Chloride Q24H COOPER Administration Insulin Aspart 0 unit 07/17/18 18:00 07/20/18 17:56 Novolog SC 8 units ACHS COOPER Administration Protocol Multivitamins/Minerals 1 tab 07/17/18 10:00 07/20/18 09:25 Therapeutic-M Tab PO 1 tab DAILY COOPER Administration Rosuvastatin Calcium 5 mg 10/05/18 22:00 07/19/18 21:39 Crestor PO 5 mg HS COOPER Administration - Patient Studies Lab Studies: Microbiology Studies 07/16/18 16:47 Blood Culture - Preliminary Blood-Venous NO GROWTH AFTER 4 DAYS 07/16/18 16:47 Blood Culture - Preliminary Blood-Venous NO GROWTH AFTER 4 DAYS Lab Studies 07/20/18 07/20/18 07/20/18 Range/Units 17:40 11:08 07:38 WBC (4.8-10.8) K/uL RBC (3.80-5.20) Mil/uL Hgb (11.0-16.0) g/dL Hct (34.0-47.0) % MCV (81.0-99.0) fL MCH (27.0-31.0) pg MCHC (33.0-37.0) g/dL RDW (11.5-14.5) % Plt Count (130-400) K/uL MPV (7.2-11.7) fL Neut % (Auto) (50.0-75.0) % Lymph % (Auto) (20.0-40.0) % Wirt % (Auto) (0.0-10.0) % Eos % (Auto) (0.0-4.0) % Baso % (Auto) (0.0-2.0) % Neut # (Auto) (1.8-7.0) K/uL Lymph # (Auto) (1.0-4.3) K/uL Wirt # (Auto) (0.0-0.8) K/uL Eos # (Auto) (0.0-0.7) K/uL Baso # (Auto) (0.0-0.2) K/uL Sodium (132-148) mmol/L Potassium (3.6-5.2) mmol/L Chloride (98-107) mmol/L Carbon Dioxide (22-30) mmol/L Anion Gap (10-20) BUN (7-17) mg/dL Creatinine (0.7-1.2) mg/dL Est GFR ( Amer) Est GFR (Non-Af Amer) POC Glucose (mg/dL) 305 H 392 H 229 H (65-110) mg/dL Random Glucose (65-105) mg/dL Calcium (8.6-10.4) mg/dl Phosphorus (2.5-4.5) mg/dL Magnesium (1.6-2.3) mg/dL Total Bilirubin (0.2-1.3) mg/dL AST (14-36) U/L ALT (9-52) U/L Alkaline Phosphatase (38-126) U/L Total Creatine Kinase (29-143) U/L Total Protein (6.3-8.3) g/dL Albumin (3.5-5.0) g/dL Globulin (2.2-3.9) gm/dL Albumin/Globulin Ratio (1.0-2.1) Vitamin B12 (239-931) pg/mL Folate ng/mL 07/20/18 07/20/18 07/20/18 Range/Units 05:49 05:48 00:29 WBC 8.0 (4.8-10.8) K/uL RBC 3.11 L (3.80-5.20) Mil/uL Hgb 8.4 L (11.0-16.0) g/dL Hct 24.8 L (34.0-47.0) % MCV 80.0 L (81.0-99.0) fL MCH 27.1 (27.0-31.0) pg MCHC 33.9 (33.0-37.0) g/dL RDW 13.1 (11.5-14.5) % Plt Count 189 (130-400) K/uL MPV 9.1 (7.2-11.7) fL Neut % (Auto) 63.0 (50.0-75.0) % Lymph % (Auto) 17.6 L (20.0-40.0) % Wirt % (Auto) 11.4 H (0.0-10.0) % Eos % (Auto) 7.4 H (0.0-4.0) % Baso % (Auto) 0.6 (0.0-2.0) % Neut # (Auto) 5.1 (1.8-7.0) K/uL Lymph # (Auto) 1.4 (1.0-4.3) K/uL Wirt # (Auto) 0.9 H (0.0-0.8) K/uL Eos # (Auto) 0.6 (0.0-0.7) K/uL Baso # (Auto) 0.1 (0.0-0.2) K/uL Sodium 134 (132-148) mmol/L Potassium 4.2 (3.6-5.2) mmol/L Chloride 100 (98-107) mmol/L Carbon Dioxide 21 L (22-30) mmol/L Anion Gap 17 (10-20) BUN 12 (7-17) mg/dL Creatinine 0.5 L (0.7-1.2) mg/dL Est GFR ( Amer) > 60 Est GFR (Non-Af Amer) > 60 POC Glucose (mg/dL) 287 H (65-110) mg/dL Random Glucose 225 H (65-105) mg/dL Calcium 8.4 L (8.6-10.4) mg/dl Phosphorus 4.3 (2.5-4.5) mg/dL Magnesium 1.6 (1.6-2.3) mg/dL Total Bilirubin 0.5 (0.2-1.3) mg/dL AST 13 L D (14-36) U/L ALT 21 (9-52) U/L Alkaline Phosphatase 64 (38-126) U/L Total Creatine Kinase (29-143) U/L Total Protein 6.4 (6.3-8.3) g/dL Albumin 3.3 L (3.5-5.0) g/dL Globulin 3.1 (2.2-3.9) gm/dL Albumin/Globulin Ratio 1.1 (1.0-2.1) Vitamin B12 (239-931) pg/mL Folate ng/mL 07/19/18 07/19/18 07/17/18 Range/Units 20:16 16:53 07:50 WBC (4.8-10.8) K/uL RBC (3.80-5.20) Mil/uL Hgb (11.0-16.0) g/dL Hct (34.0-47.0) % MCV (81.0-99.0) fL MCH (27.0-31.0) pg MCHC (33.0-37.0) g/dL RDW (11.5-14.5) % Plt Count (130-400) K/uL MPV (7.2-11.7) fL Neut % (Auto) (50.0-75.0) % Lymph % (Auto) (20.0-40.0) % Wirt % (Auto) (0.0-10.0) % Eos % (Auto) (0.0-4.0) % Baso % (Auto) (0.0-2.0) % Neut # (Auto) (1.8-7.0) K/uL Lymph # (Auto) (1.0-4.3) K/uL Wirt # (Auto) (0.0-0.8) K/uL Eos # (Auto) (0.0-0.7) K/uL Baso # (Auto) (0.0-0.2) K/uL Sodium (132-148) mmol/L Potassium (3.6-5.2) mmol/L Chloride (98-107) mmol/L Carbon Dioxide (22-30) mmol/L Anion Gap (10-20) BUN (7-17) mg/dL Creatinine (0.7-1.2) mg/dL Est GFR ( Amer) Est GFR (Non-Af Amer) POC Glucose (mg/dL) 274 H (65-110) mg/dL Random Glucose (65-105) mg/dL Calcium (8.6-10.4) mg/dl Phosphorus (2.5-4.5) mg/dL Magnesium (1.6-2.3) mg/dL Total Bilirubin (0.2-1.3) mg/dL AST (14-36) U/L ALT (9-52) U/L Alkaline Phosphatase (38-126) U/L Total Creatine Kinase 72 (29-143) U/L Total Protein (6.3-8.3) g/dL Albumin (3.5-5.0) g/dL Globulin (2.2-3.9) gm/dL Albumin/Globulin Ratio (1.0-2.1) Vitamin B12 446 (239-931) pg/mL Folate > 20.0 ng/mL Laboratory Results - last 24 hr 07/17/18 07/19/18 07/19/18 07:50 16:53 20:16 WBC RBC Hgb Hct MCV MCH MCHC RDW Plt Count MPV Neut % (Auto) Lymph % (Auto) Wirt % (Auto) Eos % (Auto) Baso % (Auto) Neut # (Auto) Lymph # (Auto) Wirt # (Auto) Eos # (Auto) Baso # (Auto) Sodium Potassium Chloride Carbon Dioxide Anion Gap BUN Creatinine Est GFR ( Amer) Est GFR (Non-Af Amer) POC Glucose (mg/dL) 274 H Random Glucose Calcium Phosphorus Magnesium Total Bilirubin AST ALT Alkaline Phosphatase Total Creatine Kinase 72 Total Protein Albumin Globulin Albumin/Globulin Ratio Vitamin B12 446 Folate > 20.0 07/20/18 07/20/18 07/20/18 00:29 05:48 05:49 WBC 8.0 RBC 3.11 L Hgb 8.4 L Hct 24.8 L MCV 80.0 L MCH 27.1 MCHC 33.9 RDW 13.1 Plt Count 189 MPV 9.1 Neut % (Auto) 63.0 Lymph % (Auto) 17.6 L Wirt % (Auto) 11.4 H Eos % (Auto) 7.4 H Baso % (Auto) 0.6 Neut # (Auto) 5.1 Lymph # (Auto) 1.4 Wirt # (Auto) 0.9 H Eos # (Auto) 0.6 Baso # (Auto) 0.1 Sodium 134 Potassium 4.2 Chloride 100 Carbon Dioxide 21 L Anion Gap 17 BUN 12 Creatinine 0.5 L Est GFR ( Amer) > 60 Est GFR (Non-Af Amer) > 60 POC Glucose (mg/dL) 287 H Random Glucose 225 H Calcium 8.4 L Phosphorus 4.3 Magnesium 1.6 Total Bilirubin 0.5 AST 13 L D ALT 21 Alkaline Phosphatase 64 Total Creatine Kinase Total Protein 6.4 Albumin 3.3 L Globulin 3.1 Albumin/Globulin Ratio 1.1 Vitamin B12 Folate 07/20/18 07/20/18 07/20/18 07:38 11:08 17:40 WBC RBC Hgb Hct MCV MCH MCHC RDW Plt Count MPV Neut % (Auto) Lymph % (Auto) Wirt % (Auto) Eos % (Auto) Baso % (Auto) Neut # (Auto) Lymph # (Auto) Wirt # (Auto) Eos # (Auto) Baso # (Auto) Sodium Potassium Chloride Carbon Dioxide Anion Gap BUN Creatinine Est GFR ( Amer) Est GFR (Non-Af Amer) POC Glucose (mg/dL) 229 H 392 H 305 H Random Glucose Calcium Phosphorus Magnesium Total Bilirubin AST ALT Alkaline Phosphatase Total Creatine Kinase Total Protein Albumin Globulin Albumin/Globulin Ratio Vitamin B12 Folate Fingerstick Blood Sugar Results: 308 Critical Care Progress Note - Nutrition Nutrition: Nutrition Category Date Time Status Consistent Carbohydrate [DIET] Diets 07/20/18 Dinner Active Assessment/Plan - Assessment and Plan (Free Text) Assessment: Patient is a 82 year old female with past medical history of HTN, T2DM, HLD found to have 3rd degree heart block. 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 Stent yest with Dr Lincoln. Then will have PPM placement. pacemaker today w/ [employer] Neuro: - AAO x3 Pulm: - on room air - maintain SPO2 > 92% - Duonebs 3 ml INH RQ6 CV: Dr jerez consulted,and recieved pacemaker today GI: - Pepcid 20mg PO daily -heart healthy diet Renal: - monitor I and O ID: - afebrile, no leuk Heme/Onc - monitor H/H -given calcium gluconate in ED Endo: - maintain euglycemia - ISS high dose protocol - Accuchecks Q6H PPX: Pepcid 20 mg PO daily, Lovenox 30 mg SC daily
[2018-07-20] MEDS ORDERED: Pneumoc 13 Val Conjugate Vaccine Inj IM ONE (18:37)
--- NOTE | 2018-07-20 21:29 | CP.PCM.PN ---
Subjective - Date & Time of Evaluation Date of Evaluation: 07/20/18 Time of Evaluation: 14:25 - Subjective Subjective: Patient seen and examined at bedside. Patient reports she is doing well. Patient denies chest pain, denies trouble breathing, denies abdominal pain, We are awaiting pacemaker placement with EP. Physical Examination - Constitutional Appears: Non-toxic, No Acute Distress - Head Exam Head Exam: NORMAL INSPECTION Additional comments: dressing over side of neck - Eye Exam Eye Exam: EOMI - Respiratory Exam Respiratory Exam: Clear to Ausculation Bilateral, NORMAL BREATHING PATTERN. absent: Rales, Rhonchi, Wheezes - Cardiovascular Exam Cardiovascular Exam: REGULAR RHYTHM, +S1, +S2 - GI/Abdominal Exam GI & Abdominal Exam: Soft, Normal Bowel Sounds. absent: Distended, Firm, Guarding, Rigid, Tenderness, Rebound - Extremities Exam Extremities Exam: absent: Pedal Edema, Tenderness - Neurological Exam Neurological Exam: Alert, Awake, Oriented x3 - Psychiatric Exam Psychiatric exam: Normal Affect, Normal Mood - Skin Skin Exam: Dry, Normal Color, Warm Assessment and Plan (1) Third degree atrioventricular block Status: Acute (2) Hypertension Status: Acute (3) Lipid disorder Status: Acute (4) Diabetes Status: Acute (5) Anemia Status: Chronic (6) Prophylactic measure Status: Acute 1. Coronary Artery Disease Complete Heart Block Nonstemi Cardiac Risk Factors: hypertension, diabetes, lipid disorder Assessment/Plan * Cardiology: Dr. Lincoln on case-->help appreciated * Cardiology EPS: Dr. Oliver on the case-->help appreciated * Patient s/p LHC/TVP/Peripheral angiogram on 07/16/18 * s/p PCI for RCA stent on Thursday07/19/18 L Main: Distal 20% 2. LAD: Distal diffuse 20% narrowing 3. L Cx: Proximal 40% 4. RCA: Mid 95% 5. EF 80% Severe Left Iliac and SFA disease * Lovenox 60mg subq12 * Norvasc 10mg PO daily * Aspirin 81mg PO daily * Plavix 75mg PO daily * lasix 20mg IV q daily * Kdur 40meq PO daily * Crestor 5mg PoqHS * Echocardiogram: left ventricle systolic function is normal ejection fraction is 65-70%, no arotic regurgitation is present. mitral regurgitation is mild. moderate tricupsid regurgitation. severe pulmonary hypertension. mild pulmonic valvular regurgitation 2. Diabetes Assessment/Plan * Novolog subq ACHS * elevated triglycerides * Hypoglycemic protocol * uncontrolled a1c: 8.2 3. Hypertension Assessment/Plan * Norvasc 10mg PO daily * Aspirin 81mg PO daily * Plavix 75mg PO daily 4) Hypokalemia Assessment/Plan * normalized * Patient is on lasix and kdur supplement * pending for today 5) Leukocytosis Assessment/Plan * Urine culture: no growth * MRSA not detected * 07/16 No growth after 3 days X2 6) Anemia Assessment/plan * stable in 9s * iron normal, TIBC 368, percent iron:9, ferritin: 41.1, folate: >20, B12: 446, reticulocyte count: 2.1 * reticulocyte index 1.3 indicates hypoproliferation * Start Ferrlecet today 7) Prophylactic measure Assessment/Plan * Lovenox 40mg subq daily * Pepcid 20mg PO bid For PPM today Objective - Vital Signs/Intake and Output Vital Signs (last 24 hours): Temp Pulse Resp BP Pulse Ox 98 F 73 21 162/66 H 99 07/20/18 17:30 07/20/18 20:01 07/20/18 20:01 07/20/18 20:01 07/20/18 18:36 Intake and Output: 07/20/18 07/21/18 18:59 06:59 Intake Total 590 Output Total 500 Balance 90 - Medications Medications: Current Medications Amlodipine Besylate (Norvasc) 10 mg PO DAILY [facility] Last Admin: 07/20/18 09:33 Dose: 10 mg Aspirin (Ecotrin) 81 mg PO DAILY [facility] Last Admin: 07/20/18 09:25 Dose: 81 mg Clopidogrel Bisulfate (Plavix) 75 mg PO DAILY [facility] Last Admin: 07/20/18 09:25 Dose: 75 mg Enoxaparin Sodium (Lovenox) 40 mg SC DAILY [facility] Famotidine (Pepcid) 20 mg PO BID [facility] Last Admin: 07/20/18 17:57 Dose: 20 mg Furosemide (Lasix) 20 mg IVP DAILY [facility] Last Admin: 07/20/18 09:25 Dose: 20 mg Hydralazine HCl (Apresoline) 10 mg IVP Q6H PRN PRN Reason: Systolic Blood Pressure Ferric Sodium Gluconate Complex 125 mg/ Sodium Chloride 110 mls @ 110 mls/hr IVPB Q24H [facility] Stop: 07/28/18 10:01 Last Admin: 07/20/18 09:27 Dose: 110 mls/hr Insulin Aspart (Novolog) 0 unit SC ACHS [facility]; Protocol Last Admin: 07/20/18 17:56 Dose: 8 units Multivitamins/Minerals (Therapeutic-M Tab) 1 tab PO DAILY [facility] Last Admin: 07/20/18 09:25 Dose: 1 tab Rosuvastatin Calcium (Crestor) 5 mg PO HS [facility] Last Admin: 07/19/18 21:39 Dose: 5 mg - Labs Labs: 07/20/18 05:48 07/20/18 05:49 PT 11.3 SECONDS (9.7-12.2) 07/16/18 12:58 INR 1.0 07/16/18 12:58 APTT 28 SECONDS (21-34) 07/16/18 12:58
[2018-07-21 06:28] LABS: BASO % 0.6 % (0.0-2.0); EOS # 0.6 K/uL (0.0-0.7); EOS % 7.5 % (0.0-4.0); HEMOGLOBIN 7.9 g/dL (11.0-16.0); LYMPH # 1.6 K/uL (1.0-4.3); LYMPH % 19.8 % (20.0-40.0); MEAN CELL VOLUME 79.6 fL (81.0-99.0); MEAN CORPUSCULAR HEMOGLOBIN 27.2 pg (27.0-31.0); MEAN CORPUSCULAR HGB CONC 34.1 g/dL (33.0-37.0); MEAN PLATELET VOLUME 9.3 fL (7.2-11.7); MONO % 12.4 % (0.0-10.0); NEUT # 4.9 K/uL (1.8-7.0); NEUT % 59.7 % (50.0-75.0); RBC 2.91 Mil/uL (3.80-5.20); WHITE BLOOD COUNT 8.2 K/uL (4.8-10.8)
[2018-07-21 06:48] LABS: ALBUMIN 3.2 g/dL (3.5-5.0); ALT/SGPT 25 U/L (9-52); AST/SGOT 27 U/L (14-36); BLOOD UREA NITROGEN 14 mg/dL (7-17); CALCIUM 8.6 mg/dl (8.6-10.4); GFR NON-AFRICAN AMERICAN > 60
[2018-07-21] MEDS: (Novolog) Insulin Aspart, Recombinant 100 u/ml 10 ml vial SC SCH ×4 (08:31→21:54)
[2018-07-21] MEDS ORDERED: Pneumoc 13 Val Conjugate Vaccine Inj IM ONE (10:00)
[2018-07-21] MEDS: Ferric Sodium Gluconat Complex 125 MG in Sodium Chloride 0.9% 100 ML IVPB SCH (10:01)
[2018-07-21] MEDS ORDERED: Ferric Sodium Gluconat Complex 62.5 mg/5 ml Vial ONE (10:01)
[2018-07-21] MEDS: Multivitamin With Minerals Tab PO SCH (10:02)
--- NOTE | 2018-07-21 14:50 | CP.PCM.PN ---
Subjective - Date & Time of Evaluation Date of Evaluation: 07/21/18 Time of Evaluation: 14:25 - Subjective Subjective: Medical Attending note: patient is doing well seen with son at bedside. Patient denies acute complaints except for constipation. She is eager to go home. Blood pressure uncontrolled. Discussed with Dr. corley to start arb and small dose beta shayna. Objective - Vital Signs/Intake and Output Vital Signs (last 24 hours): Temp Pulse Resp BP Pulse Ox 98.4 F 81 17 185/69 H 95 07/21/18 12:00 07/21/18 13:01 07/21/18 13:01 07/21/18 13:01 07/21/18 12:01 Intake and Output: 07/21/18 07/21/18 06:59 18:59 Intake Total 300 0 Output Total 400 500 Balance -100 -500 - Medications Medications: Current Medications Amlodipine Besylate (Norvasc) 10 mg PO DAILY [facility] Last Admin: 07/21/18 10:13 Dose: 10 mg Aspirin (Ecotrin) 81 mg PO DAILY [facility] Last Admin: 07/21/18 10:02 Dose: 81 mg Clopidogrel Bisulfate (Plavix) 75 mg PO DAILY [facility] Last Admin: 07/21/18 10:02 Dose: 75 mg Enoxaparin Sodium (Lovenox) 40 mg SC DAILY [facility] Famotidine (Pepcid) 20 mg PO BID [facility] Last Admin: 07/21/18 10:02 Dose: 20 mg Furosemide (Lasix) 20 mg IVP DAILY [facility] Last Admin: 07/21/18 10:03 Dose: 20 mg Hydralazine HCl (Apresoline) 10 mg IVP Q6H PRN PRN Reason: Systolic Blood Pressure Ferric Sodium Gluconate Complex 125 mg/ Sodium Chloride 110 mls @ 110 mls/hr IVPB Q24H [facility] Stop: 07/28/18 10:01 Last Admin: 07/21/18 10:01 Dose: 110 mls/hr Insulin Aspart (Novolog) 0 unit SC [facility]; Protocol Last Admin: 07/21/18 12:13 Dose: 8 units Lisinopril (Zestril) 5 mg PO DAILY [facility] Metformin HCl (Glucophage) 850 mg PO BID [facility] Multivitamins/Minerals (Therapeutic-M Tab) 1 tab PO DAILY [facility] Last Admin: 07/21/18 10:02 Dose: 1 tab Rosuvastatin Calcium (Crestor) 5 mg PO HS [facility] Last Admin: 07/20/18 21:33 Dose: 5 mg - Labs Labs: 07/21/18 06:18 07/21/18 06:20 PT 11.3 SECONDS (9.7-12.2) 07/16/18 12:58 INR 1.0 07/16/18 12:58 APTT 28 SECONDS (21-34) 07/16/18 12:58 - Constitutional Appears: Non-toxic, No Acute Distress - Head Exam Head Exam: NORMAL INSPECTION - Eye Exam Eye Exam: EOMI - ENT Exam ENT Exam: Mucous Membranes Moist - Respiratory Exam Respiratory Exam: Clear to Ausculation Bilateral, NORMAL BREATHING PATTERN. absent: Rales, Rhonchi, Wheezes - Cardiovascular Exam Cardiovascular Exam: REGULAR RHYTHM, +S1, +S2 - GI/Abdominal Exam GI & Abdominal Exam: Soft, Normal Bowel Sounds. absent: Distended, Firm, Guarding, Rigid, Tenderness, Rebound - Extremities Exam Extremities Exam: absent: Pedal Edema, Tenderness - Neurological Exam Neurological Exam: Alert, Awake, Oriented x3 - Psychiatric Exam Psychiatric exam: Normal Affect, Normal Mood - Skin Skin Exam: Dry, Intact, Normal Color, Warm Assessment and Plan (1) Third degree atrioventricular block Status: Acute (2) Hypertension Status: Acute (3) Lipid disorder Status: Acute (4) Diabetes Status: Acute (5) Anemia Status: Chronic (6) Prophylactic measure Status: Acute Attending/Attestation - Attestation I have personally seen and examined this patient.: Yes I have fully participated in the care of the patient.: Yes I have reviewed all pertinent clinical information, including history, physical exam and plan: Yes Notes (Text): 1. Coronary Artery Disease Complete Heart Block Nonstemi Cardiac Risk Factors: hypertension, diabetes, lipid disorder Assessment/Plan * Cardiology: Dr. Corley on case-->help appreciated * Cardiology EPS: Dr. Oliver on the case-->help appreciated * Patient s/p LHC/TVP/Peripheral angiogram on 07/16/18 * s/p PCI for RCA stent on Thursday07/19/18 * s/p pacemaker on 07/20/18 * interrogated on 07/29 L Main: Distal 20% 2. LAD: Distal diffuse 20% narrowing 3. L Cx: Proximal 40% 4. RCA: Mid 95% 5. EF 80% Severe Left Iliac and SFA disease * Lovenox 60mg subq12 * Norvasc 10mg PO daily * Aspirin 81mg PO daily * Plavix 75mg PO daily * lasix 20mg IV q daily * Kdur 40meq PO daily * Crestor 5mg PoqHS * Echocardiogram: left ventricle systolic function is normal ejection fraction is 65-70%, no arotic regurgitation is present. mitral regurgitation is mild. moderate tricupsid regurgitation. severe pulmonary hypertension. mild pulmonic valvular regurgitation * Blood pressure uncontrolled * start beta shayna and arb post pacemaker placement 2. Diabetes Assessment/Plan * Novolog subq ACHS * elevated triglycerides * Hypoglycemic protocol * uncontrolled a1c: 8.2 * metformin 850mg PO BID 3. Hypertension Assessment/Plan * Norvasc 10mg PO daily * Aspirin 81mg PO daily * Plavix 75mg PO daily * uncontrolled * start beta shayna and arb 4) Hypokalemia Assessment/Plan * normalized * Patient is on lasix and kdur supplement * pending for today 5) Leukocytosis Assessment/Plan * Urine culture: no growth * MRSA not detected * 07/16 No growth after 4 days X2 6) Anemia Assessment/plan * stable in 9s * iron normal, TIBC 368, percent iron:9, ferritin: 41.1, folate: >20, B12: 446, reticulocyte count: 2.1 * reticulocyte index 1.3 indicates hypoproliferation * c/wFerrlecet today 7) Prophylactic measure Assessment/Plan * Lovenox 40mg subq daily * Pepcid 20mg PO bid Disposition: blood pressure uncontrolled start beta and arb; pacemaker interrogated today; possible discharge planning tomorrow.
[2018-07-21] MEDS: Enoxaparin 40 mg Syringe SC SCH (15:41)
[2018-07-21] MEDS: POLYETHYLENE GLYCOL 3350 17 GM/Dose PACKET PO SCH (17:03)
[2018-07-22 06:41] LABS: BASO # 0.1 K/uL (0.0-0.2); BASO % 0.7 % (0.0-2.0); EOS # 0.7 K/uL (0.0-0.7); EOS % 8.8 % (0.0-4.0); HEMOGLOBIN 7.8 g/dL (11.0-16.0); LYMPH # 1.8 K/uL (1.0-4.3); MEAN CELL VOLUME 79.8 fL (81.0-99.0); MEAN CORPUSCULAR HEMOGLOBIN 27.1 pg (27.0-31.0); MEAN CORPUSCULAR HGB CONC 33.9 g/dL (33.0-37.0); MEAN PLATELET VOLUME 8.9 fL (7.2-11.7); MONO # 1.1 K/uL (0.0-0.8); MONO % 13.5 % (0.0-10.0); NEUT # 4.8 K/uL (1.8-7.0); NRBC % 0.1 % (0.0-2.0); RBC 2.87 Mil/uL (3.80-5.20); RED CELL DISTRIBUTION WIDTH 13.2 % (11.5-14.5); WHITE BLOOD COUNT 8.5 K/uL (4.8-10.8)
[2018-07-22 07:08] LABS: ALBUMIN 3.4 g/dL (3.5-5.0); ALT/SGPT 30 U/L (9-52); AST/SGOT 34 U/L (14-36); BLOOD UREA NITROGEN 17 mg/dL (7-17); CALCIUM 8.8 mg/dl (8.6-10.4); GFR NON-AFRICAN AMERICAN > 60
[2018-07-22] MEDS: (Novolog) Insulin Aspart, Recombinant 100 u/ml 10 ml vial SC SCH ×3 (08:06→17:05)
[2018-07-22] MEDS: POLYETHYLENE GLYCOL 3350 17 GM/Dose PACKET PO SCH (09:11)
[2018-07-22] MEDS: Enoxaparin 40 mg Syringe SC SCH (09:13)
[2018-07-22] MEDS: Ferric Sodium Gluconat Complex 125 MG in Sodium Chloride 0.9% 100 ML IVPB SCH (09:50)
[2018-07-22] MEDS: Multivitamin With Minerals Tab PO SCH (11:00)
[2018-07-22 17:47] VITALS: BP 154/58; RESP 20; TEMP 98.9
[2018-07-22 17:50] VITALS: PULSE 74
--- NOTE | 2018-07-22 23:17 | CP.PCM.DIS ---
Provider - Provider Date of Admission: 07/16/18 12:51 Attending physician: Yamilka Spence DO Consults: 07/16/18 15:47 Case Management Referral Routine Comment: Homemaker 20 hrs/week Physician Instructions: Reason For Exam: Reason for Referral: Discharge Planning Inpatient [employer] Me[employer] Referral Routine Comment: Physician Instructions: Reason For Exam: SOB upon admission Time Spent in preparation of Discharge (in minutes): 35 Hospital Course - Lab Results Lab Results: Micro Results 07/16/18 16:47 Blood-Venous Blood Culture - Final NO GROWTH AFTER 5 DAYS 07/16/18 16:47 Blood-Venous Gram Stain - Final TEST NOT PERFORMED 07/16/18 16:47 Blood-Venous Blood Culture - Final NO GROWTH AFTER 5 DAYS 07/16/18 16:47 Blood-Venous Gram Stain - Final TEST NOT PERFORMED 07/16/18 15:09 Nose MRSA Culture (Admit) - Final MRSA NOT DETECTED 07/16/18 14:16 Urine Urine Culture - Final No Growth (<1,000 CFU/ML) Most Recent Lab Values WBC 8.5 K/uL (4.8-10.8) 07/22/18 06:30 RBC 2.87 Mil/uL (3.80-5.20) L 07/22/18 06:30 Hgb 7.8 g/dL (11.0-16.0) L 07/22/18 06:30 Hct 22.9 % (34.0-47.0) L 07/22/18 06:30 MCV 79.8 fL (81.0-99.0) L 07/22/18 06:30 MCH 27.1 pg (27.0-31.0) 07/22/18 06:30 MCHC 33.9 g/dL (33.0-37.0) 07/22/18 06:30 RDW 13.2 % (11.5-14.5) 07/22/18 06:30 Plt Count 195 K/uL (130-400) 07/22/18 06:30 MPV 8.9 fL (7.2-11.7) 07/22/18 06:30 Neut % (Auto) 56.0 % (50.0-75.0) 07/22/18 06:30 Lymph % (Auto) 21.0 % (20.0-40.0) 07/22/18 06:30 Major % (Auto) 13.5 % (0.0-10.0) H 07/22/18 06:30 Eos % (Auto) 8.8 % (0.0-4.0) H 07/22/18 06:30 Baso % (Auto) 0.7 % (0.0-2.0) 07/22/18 06:30 Neut # (Auto) 4.8 K/uL (1.8-7.0) 07/22/18 06:30 Lymph # (Auto) 1.8 K/uL (1.0-4.3) 07/22/18 06:30 Major # (Auto) 1.1 K/uL (0.0-0.8) H 07/22/18 06:30 Eos # (Auto) 0.7 K/uL (0.0-0.7) 07/22/18 06:30 Baso # (Auto) 0.1 K/uL (0.0-0.2) 07/22/18 06:30 Retic Count 2.1 % (0.5-1.5) H 07/19/18 16:53 PT 11.3 SECONDS (9.7-12.2) 07/16/18 12:58 INR 1.0 07/16/18 12:58 APTT 28 SECONDS (21-34) 07/16/18 12:58 pO2 37 mm/Hg (30-55) 07/16/18 22:50 VBG pH 7.41 (7.32-7.43) 07/16/18 22:50 VBG pCO2 35 mmHg (40-60) L 07/16/18 22:50 VBG HCO3 22.7 mmol/L 07/16/18 22:50 VBG Total CO2 23.3 mmol/L (22-28) 07/16/18 22:50 VBG O2 Sat (Calc) 74.9 % (40-65) H 07/16/18 22:50 VBG Base Excess -1.9 mmol/L (0.0-2.0) L 07/16/18 22:50 VBG Potassium 3.9 mmol/L (3.6-5.2) 07/16/18 22:50 Sodium 134.0 mmol/l (132-148) 07/16/18 22:50 Chloride 106.0 mmol/L (98-107) 07/16/18 22:50 Glucose 193 mg/dl (65-105) H 07/16/18 22:50 Lactate 1.4 mmol/L (0.7-2.1) 07/16/18 22:50 Crit Value Called To Dr shelton 07/16/18 14:04 Crit Value Called By Sekou tariq rrt 07/16/18 14:04 Crit Value Read Back Y 07/16/18 14:04 Blood Gas Notified Time 1408 07/16/18 14:04 Sodium 133 mmol/L (132-148) 07/22/18 06:30 Potassium 4.3 mmol/L (3.6-5.2) 07/22/18 06:30 Chloride 99 mmol/L (98-107) 07/22/18 06:30 Carbon Dioxide 25 mmol/L (22-30) 07/22/18 06:30 Anion Gap 13 (10-20) 07/22/18 06:30 BUN 17 mg/dL (7-17) 07/22/18 06:30 Creatinine 0.7 mg/dL (0.7-1.2) 07/22/18 06:30 Est GFR ( Amer) > 60 07/22/18 06:30 Est GFR (Non-Af Amer) > 60 07/22/18 06:30 POC Glucose (mg/dL) 313 mg/dL (65-110) H 07/22/18 16:25 Random Glucose 138 mg/dL (65-105) H 07/22/18 06:30 Hemoglobin A1c 8.2 % (4.2-6.5) H 07/19/18 08:15 Lactic Acid 2.9 mmol/L (0.7-2.1) H 07/16/18 17:09 Calcium 8.8 mg/dl (8.6-10.4) 07/22/18 06:30 Phosphorus 4.3 mg/dL (2.5-4.5) 07/22/18 06:30 Magnesium 1.8 mg/dL (1.6-2.3) 07/22/18 06:30 Iron 49 ug/dL (37-170) 07/19/18 16:53 TIBC 368 ug/dL (250-450) 07/19/18 16:53 % Saturation 13 (20-55) L 07/19/18 16:53 Ferritin 41.1 ng/mL 07/19/18 16:53 Total Bilirubin 0.4 mg/dL (0.2-1.3) 07/22/18 06:30 AST 34 U/L (14-36) 07/22/18 06:30 ALT 30 U/L (9-52) 07/22/18 06:30 Alkaline Phosphatase 72 U/L (38-126) 07/22/18 06:30 Total Creatine Kinase 72 U/L (29-143) 07/17/18 07:50 CK-MM (CK-3) 100 % (95-100) 07/17/18 07:50 CK-MB (CK-2) 0 % (<5) 07/17/18 07:50 CK-MB (Mass) 3.49 ng/mL (0.0-3.38) H 07/17/18 06:34 CK-BB (CK-1) None detected % (None Detected) 07/17/18 07:50 CK Isoenzymes Interp see note 07/17/18 07:50 Troponin I 0.3360 ng/mL (0.00-0.120) H* 07/17/18 06:34 NT-Pro-B Natriuret Pep 6100 pg/mL (0-900) H 07/16/18 12:58 Total Protein 6.7 g/dL (6.3-8.3) 07/22/18 06:30 Albumin 3.4 g/dL (3.5-5.0) L 07/22/18 06:30 Globulin 3.4 gm/dL (2.2-3.9) 07/22/18 06:30 Albumin/Globulin Ratio 1.0 (1.0-2.1) 07/22/18 06:30 Triglycerides 184 mg/dL (0-149) H 07/19/18 08:15 Cholesterol 155 mg/dL (0-199) 07/19/18 08:15 LDL Cholesterol Direct 76 mg/dL (0-129) 07/19/18 08:15 HDL Cholesterol 47 mg/dL (30-70) 07/19/18 08:15 Vitamin B12 446 pg/mL (239-931) 07/19/18 16:53 Folate > 20.0 ng/mL 07/19/18 16:53 Free T4 1.25 ng/dL (0.78-2.19) 07/16/18 15:09 TSH 3rd Generation 3.44 mIU/L (0.46-4.68) 07/16/18 15:09 Venous Blood Potassium 3.9 mmol/L (3.6-5.2) 07/16/18 22:50 Urine Color Yellow (YELLOW) 07/16/18 12:59 Urine Clarity Hazy (Clear) 07/16/18 12:59 Urine pH 5.0 (5.0-8.0) 07/16/18 12:59 Ur Specific [place] 1.025 (1.003-1.030) 07/16/18 12:59 Urine Protein 3+ mg/dL (NEGATIVE) H 07/16/18 12:59 Urine Glucose (UA) 3+ mg/dL (Normal) H 07/16/18 12:59 Urine Ketones Negative mg/dL (NEGATIVE) 07/16/18 12:59 Urine Blood 1+ (NEGATIVE) H 07/16/18 12:59 Urine Nitrate Negative (NEGATIVE) 07/16/18 12:59 Urine Bilirubin Negative (NEGATIVE) 07/16/18 12:59 Urine Urobilinogen Normal mg/dL (0.2-1.0) 07/16/18 12:59 Ur Leukocyte Esterase Neg [place]/uL (Negative) 07/16/18 12:59 Urine WBC (Auto) 3 /hpf (0-5) 07/16/18 12:59 Urine RBC (Auto) 9 /hpf (0-3) H 07/16/18 12:59 Ur Squamous Epith Cells < 1 /hpf (0-5) 07/16/18 12:59 Urine Bacteria Rare (<OCC) 07/16/18 12:59 Hyaline Casts 3-5 /lpf (0-2) H 07/16/18 12:59 B-Hydroxybutyrate 0.29 mM (0.02-0.27) H 07/17/18 00:40 - Hospital Course Hospital Course: On admission: Patient is a 82 year old male with past medical history of HTN, T2DM, HLD presenting with chief complaint of chest pain that began yesterday morning. She describes the sensation as a burning discomfort that she thought was indigestion, and so she took an over the counter antacid which did help. Throughout the remainder of the day she remained asymptomatic, and then at night she started developing shortness of breath. Currently she is asymptomatic. Denies fevers, chills, headache, dizziness, chest pain, shortness of breath, abdominal pain, diarrhea, constipation, dysuria. Hospital Course: Patient admitted for 3rd degree heart block, NSTEMI. Cardiologists, Dr. Lincoln and Dr. Oliver consulted. Patient had: L Main: Distal 20%, LAD: Distal diffuse 20% narrowing, L Cx: Proximal 40%, RCA: Mid 95%, EF 80%, Severe Left Iliac and SFA disease. Patient had LHC/TVP/Peripheral angiogram on 07/16/18, PCI for RCA stent on Thursday07/19/18, and pacemaker on 07/20/18. Echocardiogram was performed which demonstrated: left ventricle systolic function is normal ejection fraction is 65-70%, no aortic regurgitation is present. mitral regurgitation is mild. moderate tricupsid regurgitation. severe pulmonary hypertension. mild pulmonic valvular regurgitation A beta shayna and ARB were started to control BP. Patient's pacemaker was interrogated. patient was found stable to be discharged. Discharge instructions: Patient is cleared for discharge per Dr. Rivera. Please continue taking the following medications: Ferrex 1 capsule by mouth daily Norvasc 10 mg tab by mouth daily Tradjenta 5 mg tab by mouth daily Metformin 850 mg tab by mouth daily Metoprolol tartrate 50 mg tab by mouth daily Multivitamin1 tab by mouth daily Nateglinide 10 mg tab by mouth daily Nifrex 150 mg tab by mouth daily Please START taking the following medications - prescriptions for which have been provided with your discharge instructions: Aspirin 81mg 1 tab by mouth daily Plavix 75 mg tab by mouth daily Losartan 25 mg tab by mouth daily Please follow up with your primary care doctor, Dr. Fonseca, within 5-7 days of discharge. Please follow up with a print production coordinator following discharge as well. A referral has been provided for Dr. Lincoln, your print production coordinator during your hospital stay. Return to the emergency room if symptoms recur or worsen. Discharge Exam - Head Exam Head Exam: NORMAL INSPECTION - Eye Exam Eye Exam: EOMI, Normal appearance - ENT Exam ENT Exam: Mucous Membranes Moist - Cardiovascular Exam Cardiovascular Exam: REGULAR RHYTHM, +S1, +S2 - GI/Abdominal Exam GI & Abdominal Exam: Normal Bowel Sounds, Soft. absent: Guarding, Rigid, Tenderness - Extremities Exam Extremities exam: full ROM, normal inspection - Neurological Exam Neurological exam: Alert, CN II-XII Intact, Oriented x3 - Psychiatric Exam Psychiatric exam: Normal Affect, Normal Mood - Skin Skin Exam: Dry, Normal Color, Warm Discharge Plan - Discharge Medications Prescriptions: amLODIPine [Norvasc] 10 mg PO DAILY #30 tab Aspirin [Ecotrin] 81 mg PO DAILY #30 tabec Clopidogrel [Plavix] 75 mg PO DAILY #30 tab Losartan [Cozaar] 25 mg PO DAILY #30 tab - Follow Up Plan Condition: GOOD Disposition: DISCHARGED TO HOME CARE Instructions: High Blood Pressure (DC), Diabetes Type 2 (DC), Heart Block, Adult (DC), Normocytic Normochromic Anemia (DC) Additional Instructions: Patient is cleared for discharge per Dr. Rivera. Please continue taking the following medications: Ferrex 1 capsule by mouth daily Norvasc 10 mg tab by mouth daily Tradjenta 5 mg tab by mouth daily Metformin 850 mg tab by mouth daily Metoprolol tartrate 50 mg tab by mouth daily Multivitamin1 tab by mouth daily Nateglinide 10 mg tab by mouth daily Nifrex 150 mg tab by mouth daily Please START taking the following medications - prescriptions for which have been provided with your discharge instructions: Aspirin 81mg 1 tab by mouth daily Plavix 75 mg tab by mouth daily Losartan 25 mg tab by mouth daily Please follow up with your primary care doctor, Dr. Fonseca, within 5-7 days of discharge. Please follow up with a print production coordinator following discharge as well. A referral has been provided for Dr. Lincoln, your print production coordinator during your hospital stay. Return to the emergency room if symptoms recur or worsen. Referrals: Basilio Lincoln MD [Staff Provider] -
--- NOTE | 2018-07-23 06:02 | CP.PCM.PN ---
Subjective - Date & Time of Evaluation Date of Evaluation: 07/22/18 Time of Evaluation: 09:30 - Subjective Subjective: patient seen and evaluated denies chest pain and dyspnea Physical Examination - Constitutional Appears: Non-toxic, No Acute Distress - Head Exam Head Exam: NORMAL INSPECTION - Eye Exam Eye Exam: EOMI - ENT Exam ENT Exam: Mucous Membranes Moist - Respiratory Exam Respiratory Exam: Clear to Ausculation Bilateral, NORMAL BREATHING PATTERN. absent: Rales, Rhonchi, Wheezes - Cardiovascular Exam Cardiovascular Exam: REGULAR RHYTHM, +S1, +S2 - GI/Abdominal Exam GI & Abdominal Exam: Soft, Normal Bowel Sounds. absent: Distended, Firm, G uarding, Rigid, Tenderness, Rebound - Extremities Exam Extremities Exam: absent: Pedal Edema, Tenderness - Neurological Exam Neurological Exam: Alert, Awake, Oriented x3 - Psychiatric Exam Psychiatric exam: Normal Affect, Normal Mood - Skin Skin Exam: Dry, Intact, Normal Color, Warm Assessment and Plan (1) Third degree atrioventricular block Status: Acute (2) Hypertension Status: Acute (3) Lipid disorder Status: Acute (4) Diabetes Status: Acute (5) Anemia Status: Chronic (6) Prophylactic measure Status: Acute 1. Coronary Artery Disease Complete Heart Block Nonstemi Cardiac Risk Factors: hypertension, diabetes, lipid disorder Assessment/Plan * Patient s/p LHC/TVP/Peripheral angiogram on 07/16/18 * s/p PCI for RCA stent on Thursday07/19/18 * s/p pacemaker on 07/20/18 * interrogated on 07/29 L Main: Distal 20% 2. LAD: Distal diffuse 20% narrowing 3. L Cx: Proximal 40% 4. RCA: Mid 95% 5. EF 80% Severe Left Iliac and SFA disease * Norvasc 10mg PO daily * Aspirin 81mg PO daily * Plavix 75mg PO daily * lasix 20mg IV q daily * Kdur 40meq PO daily * Crestor 5mg PoqHS * Echocardiogram: left ventricle systolic function is normal ejection fraction is 65-70%, no arotic regurgitation is present. mitral regurgitation is mild. moderate tricupsid regurgitation. severe pulmonary hypertension. mild pulmonic valvular regurgitation * Blood pressure uncontrolled * start beta shayna and arb post pacemaker placement 2. Diabetes Assessment/Plan * Novolog subq ACHS * elevated triglycerides * Hypoglycemic protocol * uncontrolled a1c: 8.2 * metformin 850mg PO BID 3. Hypertension Assessment/Plan * Norvasc 10mg PO daily * Aspirin 81mg PO daily * Plavix 75mg PO daily * uncontrolled * start beta shayna and arb 4) Hypokalemia Assessment/Plan * normalized * Patient is on lasix and kdur supplement * pending for today 5) Leukocytosis Assessment/Plan * Urine culture: no growth * MRSA not detected * 07/16 No growth after 4 days X2 6) Anemia Assessment/plan * stable in 9s * iron normal, TIBC 368, percent iron:9, ferritin: 41.1, folate: >20, B12: 446, reticulocyte count: 2.1 * reticulocyte index 1.3 indicates hypoproliferation * c/wFerrlecet today 7) Prophylactic measure Assessment/Plan * Lovenox 40mg subq daily * Pepcid 20mg PO bid Objective - Vital Signs/Intake and Output Vital Signs (last 24 hours): Temp Pulse Resp BP Pulse Ox 98.9 F 74 20 154/58 H 99 07/22/18 16:00 07/22/18 17:00 07/22/18 16:00 07/22/18 16:00 07/22/18 16:00 Intake and Output: 07/22/18 07/23/18 18:59 06:59 Intake Total 250 Output Total 400 Balance -150 - Labs Labs: 07/22/18 06:30 07/22/18 06:30 PT 11.3 SECONDS (9.7-12.2) 07/16/18 12:58 INR 1.0 07/16/18 12:58 APTT 28 SECONDS (21-34) 07/16/18 12:58
--- NOTE | 2018-07-23 06:04 | CP.PCM.PN ---
Subjective - Date & Time of Evaluation Date of Evaluation: 07/21/18 Time of Evaluation: 19:40 - Subjective Subjective: Patient seen and examined at bedside. Patient reports she is doing well. Patient denies chest pain, denies trouble breathing, denies abdominal pain, s/p PPM Physical Examination - Constitutional Appears: Non-toxic, No Acute Distress - Head Exam Head Exam: NORMAL INSPECTION Additional comments: dressing over side of neck - Eye Exam Eye Exam: EOMI - Respiratory Exam Respiratory Exam: Clear to Ausculation Bilateral, NORMAL BREATHING PATTERN. absent: Rales, Rhonchi, Wheezes - Cardiovascular Exam Cardiovascular Exam: REGULAR RHYTHM, +S1, +S2 - GI/Abdominal Exam GI & Abdominal Exam: Soft, Normal Bowel Sounds. absent: Distended, Firm, Guarding, Rigid, Tenderness, Rebound - Extremities Exam Extremities Exam: absent: Pedal Edema, Tenderness - Neurological Exam Neurological Exam: Alert, Awake, Oriented x3 - Psychiatric Exam Psychiatric exam: Normal Affect, Normal Mood - Skin Skin Exam: Dry, Normal Color, Warm Assessment and Plan (1) Third degree atrioventricular block Status: Acute (2) Hypertension Status: Acute (3) Lipid disorder Status: Acute (4) Diabetes Status: Acute (5) Anemia Status: Chronic (6) Prophylactic measure Status: Acute 1. Coronary Artery Disease Complete Heart Block Nonstemi Cardiac Risk Factors: hypertension, diabetes, lipid disorder Assessment/Plan * Cardiology EPS: Dr. Oliver on the case-->help appreciated * Patient s/p LHC/TVP/Peripheral angiogram on 07/16/18 * s/p PCI for RCA stent on Thursday07/19/18 L Main: Distal 20% 2. LAD: Distal diffuse 20% narrowing 3. L Cx: Proximal 40% 4. RCA: Mid 95% 5. EF 80% Severe Left Iliac and SFA disease * Norvasc 10mg PO daily * Aspirin 81mg PO daily * Plavix 75mg PO daily * lasix 20mg IV q daily * Kdur 40meq PO daily * Crestor 5mg PoqHS * Echocardiogram: left ventricle systolic function is normal ejection fraction is 65-70%, no arotic regurgitation is present. mitral regurgitation is mild. moderate tricupsid regurgitation. severe pulmonary hypertension. mild pulmonic valvular regurgitation 2. Diabetes Assessment/Plan * Novolog subq ACHS * elevated triglycerides * Hypoglycemic protocol * uncontrolled a1c: 8.2 3. Hypertension Assessment/Plan * Norvasc 10mg PO daily * Aspirin 81mg PO daily * Plavix 75mg PO daily 4) Hypokalemia Assessment/Plan * normalized * Patient is on lasix and kdur supplement * pending for today 5) Leukocytosis Assessment/Plan * Urine culture: no growth * MRSA not detected * 07/16 No growth after 3 days X2 6) Anemia Assessment/plan * stable in 9s * iron normal, TIBC 368, percent iron:9, ferritin: 41.1, folate: >20, B12: 446, reticulocyte count: 2.1 * reticulocyte index 1.3 indicates hypoproliferation * Start Ferrlecet today 7) Prophylactic measure Assessment/Plan * Lovenox 40mg subq daily * Pepcid 20mg PO bid Objective - Vital Signs/Intake and Output Vital Signs (last 24 hours): Temp Pulse Resp BP Pulse Ox 98.9 F 74 20 154/58 H 99 07/22/18 16:00 07/22/18 17:00 07/22/18 16:00 07/22/18 16:00 07/22/18 16:00 Intake and Output: 07/22/18 07/23/18 18:59 06:59 Intake Total 250 Output Total 400 Balance -150 - Labs Labs: 07/22/18 06:30 07/22/18 06:30 PT 11.3 SECONDS (9.7-12.2) 07/16/18 12:58 INR 1.0 07/16/18 12:58 APTT 28 SECONDS (21-34) 07/16/18 12:58
[2018-07-27 00:39] VITALS: O2SAT 97
== END 2018-07-22 17:30 | disposition home health service (06) | DRG 242 ==
LOC: C.ER 12:24 → C.9I 12:51
PROVIDERS: ADMIT Hospitalist; ATTEND Hospitalist
PROC: 4A023N7 Measurement of Cardiac Sampling and Pressure, Left Heart, Percutaneous Approach (ICD-10-PCS; principal; 2018-07-16)
PROC: B2111ZZ Fluoroscopy of Multiple Coronary Arteries using Low Osmolar Contrast (ICD-10-PCS; 2018-07-16)
PROC: 5A1223Z Performance of Cardiac Pacing, Continuous (ICD-10-PCS; 2018-07-16)
PROC: 027034Z Dilation of Coronary Artery, One Artery with Drug-eluting Intraluminal Device, Percutaneous Approach (ICD-10-PCS; 2018-07-19)
PROC: 0JH606Z Insertion of Pacemaker, Dual Chamber into Chest Subcutaneous Tissue and Fascia, Open Approach (ICD-10-PCS; 2018-07-20)
PROC: 02HK3JZ Insertion of Pacemaker Lead into Right Ventricle, Percutaneous Approach (ICD-10-PCS; 2018-07-20)
PROC: 02H63JZ Insertion of Pacemaker Lead into Right Atrium, Percutaneous Approach (ICD-10-PCS; 2018-07-20)
DX: I21.4 Non-ST elevation (NSTEMI) myocardial infarction (principal); I50.31 Acute diastolic (congestive) heart failure; I44.2 Atrioventricular block, complete; I25.10 Atherosclerotic heart disease of native coronary artery without angina pectoris; I44.7 Left bundle-branch block, unspecified; I11.0 Hypertensive heart disease with heart failure; E87.6 Hypokalemia; E78.5 Hyperlipidemia, unspecified; K59.00 Constipation, unspecified; Z79.84 Long term (current) use of oral hypoglycemic drugs; E78.1 Pure hyperglyceridemia; E11.69 Type 2 diabetes mellitus with other specified complication; E11.65 Type 2 diabetes mellitus with hyperglycemia; E11.51 Type 2 diabetes mellitus with diabetic peripheral angiopathy without gangrene; D64.9 Anemia, unspecified